=== PATIENT | male | born 1970 | race Caucasian/White ===

== ENCOUNTER 2021-10-26 15:17 | Outpatient (CLI) | payer BC, SELFPAY ==
--- NOTE | 2021-10-26 15:30 | CRLHL7_ITS ---
For Patients: As a result of the 21st Century Cures Act, medical imaging exams and procedure reports are released immediately into your electronic medical record. You may view this report before your referring provider. If you have questions, please contact your health care provider. INDICATION: Metastatic non-small cell lung cancer. Exam is been performed for staging. TECHNIQUE: Patient received 13.4 millicuries of 18 FDG (18 fluorodeoxyglucose) intravenously. PET-CT imaging has been performed from the mid skull to mid thigh level [address] images have been obtained for attenuation correction and localization only. Blood glucose level: 119 mg/dL. COMPARISON: PET-CT dated 07/20/2021. FINDINGS: Within the chest there is a residual right paratracheal hypermetabolic lymph node. This is increased in size measuring 2.4 x 2.1 cm compared with 1.9 x 1.7 cm previously. The SUV max is 6.6 and unchanged. There is a lymph node adjacent to the inferior arch of aorta posteriorly and the upper descending thoracic aorta. The SUV max is 9.5 compared with 7.6 previously. A small pulmonary nodule in the posterior left lung is identified. This measures approximately 2.1 cm compared with 1.2 cm previously. The SUV max is 19.9 compared with 7.1 previously. There are chronic changes in the left lung. Right lung demonstrates no significant abnormal uptake. Chronic pleural fluid left lung base noted. Two adjacent the upper axillary lymph nodes are identified. The SUV max is 6.8 compared with 7.4 previously. These are felt to be relatively stable. New small lymph node in the lower neck on the left is identified with a SUV max of 4.8. Right neck is unremarkable. Skull base is unremarkable. Liver and spleen demonstrate no abnormal uptake. Pancreas and bilateral adrenal glands demonstrate no abnormal uptake. Right retroperitoneal lymph node is identified, SUV max is 4.0 compared with 6.3 previously. Other small retroperitoneal lymph nodes are identified without significant abnormal uptake. No significant hypermetabolic iliac lymph nodes are noted. There is physiologic bowel and ureteric activity demonstrated. No suspicious skeletal lesion is seen. Stable right hip arthroplasty is noted. IMPRESSION: 1. Pattern of findings are consistent with mild progression of the patient`s metastatic disease. 2. There is increasing size and metabolic activity within the residual nodule in the posterior left lung. SUV max is 19.1 compared with 7.1 previously. 3. There are 2 lymph nodes identified in the mediastinum which remain hypermetabolic and appears slightly larger in size. 4. There are 2 adjacent small sub cm lymph nodes in the left axilla which are relatively stable. New small hypermetabolic lymph node in the base of the neck on the left is noted. 5. There is a small right retroperitoneal lymph node identified stable in size and less hypermetabolic. SUV max is 4.0. Other scattered small retroperitoneal lymph nodes identified without significant abnormal uptake. 6. Other PET-CT findings as detailed above. Dictated by Melvin Srivastava MD @ 10/27/2021 3:58:25 PM (Electronically Signed)
== END 2021-10-26 15:18 | disposition home or self-care (01) ==
LOC: RAD 15:18
PROVIDERS: PCP Family Medicine; Visit Provider Internal Medicine Medical Oncology
DX: C34.12 Malignant neoplasm of upper lobe, left bronchus or lung (principal); R59.9 Enlarged lymph nodes, unspecified
CPT/HCPCS: 78815; A9552

== ENCOUNTER 2021-10-30 12:41 | Outpatient (RCR) | payer BC, SELFPAY ==
[2021-10-30 13:12] LABS: Basophils Absolute Auto 0.04 K/uL (0.00-0.30); Basophils Percent Auto 0.4 % (0.0-3.0); Eosinophils Absolute Auto 0.26 K/uL (0.00-0.50); Eosinophils Percent Auto 2.7 % (0.0-7.0); Hemoglobin* 10.8 gm/dL (13.5-17.5); Immature Granulocytes Abs Auto 0.12 K/uL (0.00-0.30); Mean Corpuscular HGB Conc 33 gm/dL (32-36); Mean Corpuscular Hemoglobin 32 pg (26-34); Mean Corpuscular Volume 99 fL (80-100); Monocytes Percent Auto 10.8 % (0.0-11.0); Neutrophils Percent Auto 77.8 % (42.0-72.0); Platelet Count* 289 K/uL (140-440); RDW Coefficient of Variation % 15.7 % (11.5-15.5); Red Blood Count 3.35 m/uL (4.30-5.90); White Blood Count* 9.56 K/uL (4.50-11.00)
[2021-10-30 13:16] LABS: Slide Review Reflex No
[2021-10-30 13:25] LABS: Chloride* 103 mmol/L (96-114); Potassium* 5.4 mmol/L (3.6-5.1); Sodium* 136 mmol/L (135-149)
[2021-10-30 13:28] LABS: Alanine Aminotransferase* 18 U/L (4-50); Alkaline Phosphatase* 100 U/L (40-150); Aspartate Amino Transferase* 20 U/L (12-35); Blood Urea Nitrogen* 36 mg/dL (7-30); Carbon Dioxide* 30 mmol/L (20-32); Creatinine* 1.3 mg/dL (0.5-1.5); Estimated Glomerular Filt Rate 66 ml/min; Glucose* 99 mg/dL (60-115); Total Protein* 7.1 g/dL (6.0-8.3)
[2021-10-30 13:29] LABS: Calcium* 8.2 mg/dL (8.4-10.6)
[2021-10-30 13:45] LABS: Bilirubin Total* < 0.1 mg/dL (0.1-1.5)
--- NOTE | 2021-11-06 13:45 | ONC.NURNOTE ---
Addendum entered by Ave Allen RN 11/08/21 12:50: Radiation Oncology requesting records from treatment for 2021, this was faxed to requested fax machine. Original Note: Patient's daughter called stating that patient has an appointment with Radiation Oncology on 11/20/2021 at 9:45. [facility] to watch for recommendations to determine follow up.
== END 2021-11-05 23:59 | disposition home or self-care (01) ==
LOC: CCIC 12:41
PROVIDERS: PCP Family Medicine; Visit Provider Internal Medicine Medical Oncology
DX: C34.92 Malignant neoplasm of unspecified part of left bronchus or lung (principal)
CPT/HCPCS: 36415; 80053; 85025; 99212; 99214; 99215

== ENCOUNTER 2022-02-15 13:02 | Outpatient (CLI) | payer BC, SELFPAY ==
--- NOTE | 2022-02-15 13:15 | CRLHL7_ITS ---
For Patients: As a result of the 21st Century Cures Act, medical imaging exams and procedure reports are released immediately into your electronic medical record. You may view this report before your referring provider. If you have questions, please contact your health care provider. INDICATION: Lung cancer TECHNIQUE: Following IV injection of FDG with uptake of 58 minutes, noncontrast CT scan followed by a PET scan were acquired along the length of body from the head to the upper thighs. Noncontrast CT was used for anatomic localization and photon attenuation correction of the PET-CT scan. - Blood glucose level: 172. - FDG dose (mCi): 12.47. COMPARISON: 10/26/2021 PET-CT. FINDINGS: Head/Neck: Cluster of left supraclavicular/left upper axillary lymph nodes with SUV max of 14.9 previously 6.1. Medial left supraclavicular lymph node SUV max of 2.4 previously 4.8. - Chest: Left upper lung mass SUV max of 14.2 previously 19.9 measures 3.2 cm previously 1.9 cm. Adjacent small pulmonary nodule with SUV max of 13.0 previously 3.5. Lymph node known posterior to the aortic arch with SUV max of 10.3 previously 9.5. Pretracheal lymph node SUV max of 5.9 previously 6.6. Right hilar lymph nodes SUV max of 3.8 are new from prior. - Background liver parenchyma with SUV mean of 2.9. Right adrenal nodule with SUV max of 12.0 is new from prior measuring 1.1 cm. Right retroperitoneal lymph node with SUV max of 2.3 previously 4.0. Additional nonenlarged retroperitoneal lymph nodes are similar to prior with uptake similar to background. - Musculoskeletal: No tracer avid bone lesions. - CT findings: Stable small pleural effusion. Left supraclavicular/axillary nodes as above. Linear left lung subsegmental atelectasis is similar to prior. Left lung nodules, mediastinal and hilar lymph nodes as above. No pneumothorax. Hepatic steatosis and hepatomegaly. Right adrenal nodule as above. Diverticulosis. Atherosclerotic abdominal aorta. Right trochanteric fixation nail. T3 sclerotic focus is stable. Degenerative changes in the spine. IMPRESSION : 1. Tracer avid right adrenal metastasis is new from prior. 2. Left upper lung mass is increased in size with decreased uptake. Increased uptake in adjacent pulmonary nodule. 3. Mediastinal and left supraclavicular/left upper axillary lymph nodes with increased uptake as above. New right hilar lymph nodes. Dictated by Pako Howell MD @ 02/16/2022 3:51:32 PM (Electronically Signed)
== END 2022-02-15 13:03 | disposition home or self-care (01) ==
LOC: RAD 13:02
PROVIDERS: PCP Family Medicine; Visit Provider Internal Medicine Hematology & Oncology
DX: C34.12 Malignant neoplasm of upper lobe, left bronchus or lung (principal); C79.51 Secondary malignant neoplasm of bone; R59.0 Localized enlarged lymph nodes
CPT/HCPCS: 78815; A9552

== ENCOUNTER 2022-05-24 13:48 | Outpatient (CLI) | payer BC, SELFPAY ==
--- NOTE | 2022-05-24 14:00 | CRLHL7_ITS ---
For Patients: As a result of the 21st Century Cures Act, medical imaging exams and procedure reports are released immediately into your electronic medical record. You may view this report before your referring provider. If you have questions, please contact your health care provider. INDICATION: Metastatic non-small cell lung cancer TECHNIQUE: Following IV injection of FDG with uptake of 63 minutes, noncontrast CT scan followed by a PET scan were acquired along the length of body from the head to the upper thighs. Noncontrast CT was used for anatomic localization and photon attenuation correction of the PET-CT scan. - Blood glucose level: 119. - FDG dose (mCi): 11.5. COMPARISON: 02/15/2022 PET-CT. FINDINGS: Head/Neck: Increased size and uptake of left supraclavicular lymph nodes. Dominant peggy mass with SUV max of 29.6 previously 8.9 measuring 2.9 cm short axis previously 0.7 cm. - Chest: Left upper lobe mass with SUV max of 23.2 previously 14.2 measures 5.2 x 4.4 cm previously 3.2 cm. Increased size and number of tracer avid mediastinal and hilar lymph nodes, including paratracheal, right hilar, subcarinal and left inferior hilar. For example pretracheal lymph node SUV max of 22.2 previously 5.9. Increased left axillary adenopathy. Dominant left axillary peggy mass with SUV max of 29.6 previously 8.9. - Background liver parenchyma with SUV mean of 2.8. Right adrenal mass with us for max 18.0 previously 12.0 measuring 3.9 cm previously 1.1 cm. Right retrocrural lymph node with SUV max of 12.4 is new from prior. Tracer avid celiac lymph node is new from prior with SUV max of 23.9. Left retrocrural lymph node is new from prior with SUV max of 8.8. Left periaortic lymph node is new from prior with SUV max of 12.2. - Musculoskeletal: No tracer avid bone lesion. - CT findings: Left lung mass as above. Stable small left pleural effusion. Left lung opacities are again noted. No pneumothorax. Lymph nodes as above. Hepatic steatosis. Atherosclerotic abdominal aorta. Right adrenal mass and abdominal lymph nodes as above. Right proximal femur hardware. Degenerative changes in the spine. T3 sclerotic focus is stable. IMPRESSION : 1. Increased size, number and uptake of supraclavicular, mediastinal, hilar, axillary and upper abdominal metastatic adenopathy. 2. Increased size and uptake of left lung mass. 3. Increased size and uptake of right adrenal metastasis. Dictated by Pako Howell MD @ 05/31/2022 2:40:57 PM (Electronically Signed)
== END 2022-05-24 13:49 | disposition home or self-care (01) ==
PROVIDERS: PCP Family Medicine; Visit Provider Internal Medicine Medical Oncology
DX: C34.12 Malignant neoplasm of upper lobe, left bronchus or lung (principal); C79.71 Secondary malignant neoplasm of right adrenal gland
CPT/HCPCS: 78815; A9552

== ENCOUNTER 2022-06-04 14:00 | Outpatient (RCR) | payer BC, SELFPAY ==
[2022-06-04 14:50] VITALS: BP 181/115
--- NOTE | 2022-06-05 13:13 | URNOTE ---
REceived request for prior auth for Docetaxel (J9171), Ramucirumab (J9308), Granisetron (J1626), Pegfilgrastim ([id number]). Per [employer], prior authorization is not required. REf # [id number]
== END 2022-06-05 23:59 | disposition home or self-care (01) ==
LOC: CCIC 14:00
PROVIDERS: PCP Family Medicine; Referring Provider Family Medicine; Visit Provider Internal Medicine Medical Oncology
DX: C34.90 Malignant neoplasm of unspecified part of unspecified bronchus or lung (principal)
CPT/HCPCS: 99212; 99213; 99214

== ENCOUNTER 2022-06-12 08:15 | Outpatient (CLI) | payer BC, SELFPAY | END 2022-06-12 08:16 | disposition home or self-care (01) | LOC: NFLDREF 06-15 11:01 | PROVIDERS: PCP Family Medicine; Referring Provider Family Medicine; Visit Provider Family Medicine | DX: Z00.00 Encounter for general adult medical examination without abnormal findings (principal); I10 Essential (primary) hypertension; D64.9 Anemia, unspecified; I48.91 Unspecified atrial fibrillation; E87.1 Hypo-osmolality and hyponatremia; E78.5 Hyperlipidemia, unspecified | CPT/HCPCS: 80048; 80061 ==

== ENCOUNTER 2022-07-09 10:47 | Outpatient (CLI) | payer BC, SELFPAY | END 2022-07-09 10:48 | disposition home or self-care (01) | LOC: AMB 07-12 22:20 | PROVIDERS: PCP Family Medicine; Visit Provider Family Medicine | DX: M79.604 Pain in right leg (principal) | CPT/HCPCS: A0425; A0427 ==

== ENCOUNTER 2022-07-09 11:36 | Inpatient (IN) | payer BC, SELFPAY ==
[2022-07-09] VITALS (22 sets, daily range): BP systolic 96–126; BP diastolic 60–92; PULSE 72–102; RESP 20–25; TEMP 36.9–37.6; O2SAT 89–96; BMI 36.7; BMI 39.4
--- NOTE | 2022-07-09 12:08 | CRLHL7_ITS ---
For Patients: As a result of the Cures Act, medical imaging exams and procedure reports are released immediately into your electronic medical record. You may view this report before your referring provider. If you have questions, please contact your health care provider. Indication: Pain, history of intramedullary federico. Possible metastatic disease. Technique: Two views, 4 films Comparison: Right femur 02/14/2022 Findings/Impression: Bones: Proximal right femoral diaphyseal fracture redemonstrated with intramedullary federico and dynamic hip screw. Fracture of the 2 distal locking screws which appear similar to prior. Prominent callus formation surrounding the fracture plane with some adjacent heterotopic calcification which appears mildly increased compared to the prior exam. Fracture plane is still clearly visible. No new femoral fracture. Joint spaces: No dislocation. Soft tissues: Atherosclerosis. Dictated by Cortes Ewing MD @ 07/09/2022 1:38:56 PM (Electronically Signed)
--- NOTE | 2022-07-09 12:08 | CRLHL7_ITS ---
For Patients: As a result of the Century Cures Act, medical imaging exams and procedure reports are released immediately into your electronic medical record. You may view this report before your referring provider. If you have questions, please contact your health care provider. Indication: Right leg pain, history of metastatic disease Technique: One View Comparison: None Findings: Bones: There is a comminuted fracture of the proximal diaphysis of the right femur, partially included. Intramedullary federico and dynamic hip screw there also partially included on the examination. Joint spaces: Unremarkable. Soft tissues: Unremarkable. Impression: No evidence of acute fracture of the pelvis. Proximal right femoral diaphyseal fracture with intramedullary federico partially included on the exam, please see femur report for additional comments. Dictated by Cortes Ewing MD @ 07/09/2022 1:35:37 PM (Electronically Signed)
[2022-07-09] MEDS: MORPHINE 4 MG/ML INJ IVP ×2 (12:45→15:13)
--- NOTE | 2022-07-09 12:52 | ED_ITS ---
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 Was done 3 years ago now. For the last week, he had increasing pain in his right leg mid shaft, but now has progressed to a point where he can not bear any wake at all. Lower leg is totally nontender any is good movement of his knee tells me, is toes, denies any back pain associated with this any falls or injury, is currently being treated in [facility] for chemo by [facility]. The federico was placed at [facility] in his right femur. Denies any numbness tingling weakness, fevers chills or sweats, nausea vomiting or other issues. Related Data Home Medications Medication Instructions Recorded Confirmed calcium carbonate 500 mg calcium 500 mg PO DAILY 02/01/22 06/14/22 (1,250 mg) tablet (Oyster Shell Calcium) cholecalciferol (vitamin D3) 50 50 mcg PO QDAY 02/01/22 06/14/22 mcg (2,000 unit) tablet cinnamon bark 500 mg capsule 500 mg PO DAILY 02/01/22 06/14/22 ferrous gluconate 240 mg (27 mg 130 mg PO QDAY 02/01/22 06/14/22 iron) tablet ibuprofen 200 mg tablet 800 mg PO .Daily as needed PRN 02/01/22 06/14/22 polyethylene glycol 3350 17 17 g PO DAILY PRN 02/01/22 06/14/22 gram/dose oral powder acetaminophen 500 mg tablet 1,500 mg PO QID PRN 06/04/22 06/14/22 (Tylenol Extra Strength) Previous Rx's Medication Instructions Recorded triamcinolone acetonide 0.1 % 1 applic topical BID PRN itching 01/18/22 topical cream #30 grams ondansetron HCl 4 mg tablet 4 mg PO Q6H PRN nausea #40 tabs 06/11/22 amlodipine 5 mg tablet 5 mg PO QDAY #90 tabs 06/15/22 diltiazem HCl 180 mg 180 mg PO QDAY #90 caps 06/15/22 capsule,extended release 24 hr, controlled (DILT-XR) gabapentin 300 mg capsule 300 mg PO QDAY #90 caps 06/15/22 lisinopril 20 mg tablet 20 mg PO QDAY #90 tabs 06/15/22 metoprolol succinate 200 mg 200 mg PO QDAY #90 tabs 06/15/22 tablet,extended release 24 hr dexamethasone 4 mg tablet 8 mg PO BID fluid retention, 06/27/22 hypersensitivity from chemo #40 tabs lorazepam 0.5 mg tablet 0.5 mg PO Q8H PRN insomnia after 06/27/22 chemo, uncontrolled nausea #30 tabs Allergies Allergy/AdvReac Type Severity Reaction Status Date / Time hydrochlorothiazide Allergy Severe tongue Verified 06/14/22 09:36 swelling cephalexin Allergy Verified 06/14/22 09:36 Review of Systems Status of ROS: Reports: 10 or more systems reviewed and unremarkable except as noted in History and below [facility] Medical History Adverse effect of angiotensin-converting enzyme inhibitor ?T46.4X5A - Adverse effect of ijubicxtlmc-akcpcpovjj-hyfkgy inhibitors, initial encounter (ICD-10) Alcoholic intoxication ?F10.929 - Alcohol use, unspecified with intoxication, unspecified (ICD-10) Anemia ?D64.9 - Anemia, unspecified (ICD-10) Atrial fibrillation with rapid ventricular response ?I48.91 - Unspecified atrial fibrillation (ICD-10) Cellulitis ?L03.90 - Cellulitis, unspecified (ICD-10) Cellulitis and abscess of face ?L03.211 - Cellulitis of face (ICD-10) ?L02.01 - Cutaneous abscess of face (ICD-10) Epistaxis ?R04.0 - Epistaxis (ICD-10) Fracture of right femur ?S72.91XA - Unspecified fracture of right femur, initial encounter for closed fracture (ICD-10) Hyperlipidemia ?E78.5 - Hyperlipidemia, unspecified (ICD-10) Hyperplastic colonic polyp ?K63.5 - Polyp of colon (ICD-10) Hypertension ?I10 - Essential (primary) hypertension (ICD-10) Hypervolemia ?E87.70 - Fluid overload, unspecified (ICD-10) Hypocalcemia ?E83.51 - Hypocalcemia (ICD-10) Hyponatremia ?E87.1 - Hypo-osmolality and hyponatremia (ICD-10) Obesity with body mass index (BMI) of 30.0 to 39.9 ?E66.9 - Obesity, unspecified (ICD-10) ROSALIND on CPAP ?G47.33 - Obstructive sleep apnea (adult) (pediatric) (ICD-10) ?Z99.89 - Dependence on other enabling machines and devices (ICD-10) Pleural effusion ?J90 - Pleural effusion, not elsewhere classified (ICD-10) Proteinuria ?R80.9 - Proteinuria, unspecified (ICD-10) Rosacea ?L71.9 - Rosacea, unspecified (ICD-10) Seborrheic dermatitis ?L21.9 - Seborrheic dermatitis, unspecified (ICD-10) Stage 1 chronic kidney disease ?N18.1 - Chronic kidney disease, stage 1 (ICD-10) Type 2 diabetes mellitus with diabetic nephropathy ?E11.21 - Type 2 diabetes mellitus with diabetic nephropathy (ICD-10) Surgical History History of colonoscopy ?Z98.890 - Other specified postprocedural states (ICD-10) History of surgery on lower extremity (03/19/20) ?Z98.890 - Other specified postprocedural states (ICD-10) Status post hemorrhoidectomy ?Z98.890 - Other specified postprocedural states (ICD-10) ?Z87.19 - Personal history of other diseases of the digestive system (ICD-10) Social History Smoking Status: Never smoker Little interest or pleasure in doing things: not at all Feeling down, depressed, or hopeless: not at all Exam Narrative: Exam Narrative: Examination reveals a very nice gentleman seen and stabilization room 2, is pupils equal round reactive to light, neck is supple, TMs are normal, oropharynx normal chest shows good air entry bilaterally with no wheezing crackles noted his heart sounds are distant faint, but otherwise normal his abdomen is soft and obese there is no guarding, no tenderness to palpation, no organomegaly, can not really were lift his right leg off the bed, at the hip with any sort of pain, it is slightly externally rotated, but otherwise normal his knee when I stabilizes leg, is able to go through full range of motion, lower leg shows DP posterior tibial and popliteal pulses normal sensations normal in his right leg. He is log-rolled onto his left side with the help with the nurses, there is no tenderness to palpation over his lumbar thoracic or cervical spines, he has no ulcers noted, redness, well-healed scars on the right hip, from previous procedure. Const: Vital Signs, click to edit/add: Vital Signs - 24 hr 07/09/22 11:39 Temperature 99.6 F Pulse Rate [Pulse Oximeter] 100 Respiratory Rate 22 Blood Pressure [Ri ght Upper Arm] 125/78 Pulse Oximetry 90 Oxygen Delivery Me thod Room Air Documenting provider has reviewed patient's vital signs: yes Course Course Hospital Course: Patient is about the same, still can not really move the leg, I went over his e lectrolyte abnormalities, which are fairly impressive, he will need admission for correction of his sodium, potassium, and likely calcium, I can see no acute change for his right thigh discomfort, still waiting for a page back from [facility] to see if this is something we need to see for. Reevaluation(s) Reevaluation #1: Still awaiting [facility] call back, we have re-paged him now 3 times, discussed the case with Dr. Pinto our hospitalist, we will need to admit him for correction of his metabolic abnormalities, not sure what is causing the increasing right thigh pain, see no evidence of, worsening was pathologic fracture, I will order an ultrasound of his right leg, to further check this out. Time: 15:22 Vital Signs Vital signs: Initial Vital Signs Temperature 99.6 F 07/09/22 11:39 Temperature Source Temporal Artery Scan 07/09/22 11:39 Pulse Rate 100 07/09/22 11:39 Respiratory Rate 22 07/09/22 11:39 Blood Pressure 125/78 07/09/22 11:39 Blood Pressure Mean 93 07/09/22 11:39 Pulse Oximetry 90 07/09/22 11:39 Oxygen Delivery Method Room Air 07/09/22 11:39 Vital Signs Temperature 99.6 F 07/09/22 11:39 Pulse Rate 100 07/09/22 11:39 Respiratory Rate 22 07/09/22 11:39 Blood Pressure 125/78 07/09/22 11:39 Pulse Oximetry 90 07/09/22 11:39 Oxygen Delivery Method Room Air 07/09/22 11:39 Temperature 99.6 F 07/09/22 11:39 Pulse Rate 100 07/09/22 11:39 Respiratory Rate 22 07/09/22 11:39 Blood Pressure 125/78 07/09/22 11:39 Pulse Oximetry 90 07/09/22 11:39 Oxygen Delivery Method Room Air 07/09/22 11:39 MDM - Extremity Injury (Lower) MDM Narrative Medical decision making narrative: During this evaluation I considered multiple diagnosis including lumbar radiculopathy, fracture of the hip and femur, pathologic fracture, RSD, hematoma, venous thrombosis, ischemic limb, Medical Records Attestation: I reviewed the patient's medical records. Lab Data Attestation: I reviewed the patient's lab results. Labs: Lab Results 07/09/22 Range/Units 12:47 WBC 19.80 H (4.50-11.00) K/uL RBC 2.76 L (4.30-5.90) m/uL Hgb 9.1 L (13.5-17.5) gm/dL Hct 26.3 L (37.0-53.0) % MCV 95 (80-100) fL MCH 33 (26-34) pg MCHC 35 (32-36) gm/dL RDW Coeff of [place] 14.0 (11.5-15.5) % Plt Count 176 (140-440) K/uL Neut % (Auto) 93.9 H (42.0-72.0) % Lymph % (Auto) 1.0 L (20-44) % [place] % (Auto) 3.9 (0.0-11.0) % Eos % (Auto) 0.0 (0.0-7.0) % Baso % (Auto) 0.2 (0.0-3.0) % Neut # (Auto) 18.60 H (1.7-7.0) K/uL Lymph # (Auto) 0.20 L (0.90-2.90) K/uL [place] # (Auto) 0.80 (0.00-0.90) K/UL Eos # (Auto) 0.00 (0.00-0.50) K/uL Baso # (Auto) 0.00 (0.00-0.30) K/uL Sodium 119 L* (135-149) mmol/L Potassium 5.2 H (3.6-5.1) mmol/L Chloride 88 L (96-114) mmol/L Carbon Dioxide 24 (20-32) mmol/L BUN 45 H (7-30) mg/dL Creatinine 2.0 H (0.5-1.5) mg/dL Estimated Creat Clear 47.72 Estimated GFR 39 ml/min Glucose 137 H (60-115) mg/dL Calcium 7.6 L (8.4-10.6) mg/dL Imaging Data Left femur x-ray: Attestation: I have reviewed the pertinent imaging results. Radiologist's impression: Patient: EDMUND HEAD Facility:?[facility] Patient ID:?[id number] Site Patient ID:?[id number]. Site :?[id number] Study:?XRay Extremity Right FEMUR 2V-07/09/2022 12:38:30 PM Ordering Physician:Hossein Castellon Final Report: Indication: Pain, history of intramedullary federico. Possible metastatic disease. Technique: Two views, 4 films Comparison: Right femur 02/14/2022 Findings/Impression: Bones: Proximal right femoral diaphyseal fracture redemonstrated with intramedullary federico and dynamic hip screw. Fracture of the 2 distal locking screws which appear similar to prior. Prominent callus formation surrounding the fracture plane with some adjacent heterotopic calcification which appears mildly increased compared to the prior exam. Fracture plane is still clearly visible. No new femoral fracture. Joint spaces: No dislocation. Soft tissues: Atherosclerosis. Dictated by Cortes Ewing MD @ 07/09/2022 1:38:56 PM (Electronic Signature) Patient: EDMUND HEAD Facility:?[facility] Patient ID:?[id number] Site Patient ID:?[id number]. Site :?[id number] Study:?XRay Pelvis 1 VIEW-07/09/2022 12:38:32 PM Ordering Physician:Hossein Castellon Final Report: Indication: Right leg pain, history of metastatic disease Technique: One View Comparison: None Findings: Bones: There is a comminuted fracture of the proximal diaphysis of the right femur, partially included. Intramedullary federico and dynamic hip screw there also partially included on the examination. Joint spaces: Unremarkable. Soft tissues: Unremarkable. Impression: No evidence of acute fracture of the pelvis. Proximal right femoral diaphyseal fracture with intramedullary federico partially included on the exam, please see femur report for additional comments. Dictated by Cortes Ewing MD @ 07/09/2022 1:35:37 PM (Electronic Signature) Discharge Plan Discharge Clinical Impression: Acute renal insufficiency, Lower extremity pain, right, Lung cancer metastatic to bone, Acute hyponatremia, Acute hyperkalemia, Hypocalcemia Patient Disposition: Admitted As Inpatient Condition: Stable Prescriptions: No Action cholecalciferol (vitamin D3) 50 mcg (2,000 unit) tablet 50 mcg PO QDAY Hold Instructions: Doctor's Order cinnamon bark 500 mg capsule 500 mg PO DAILY polyethylene glycol 3350 17 gram/dose powder 17 g PO DAILY PRN ibuprofen 200 mg tablet 800 mg PO .Daily as needed PRN ferrous gluconate 240 mg (27 mg iron) tablet 130 mg PO QDAY calcium carbonate [Oyster Shell Calcium] 500 mg calcium (1,250 mg) tablet 500 mg PO DAILY Hold Instructions: Doctor's Order diltiazem HCl [DILT-XR] 180 mg capsule,ext.rel 24h degradable 180 mg PO QDAY Qty: 90 3RF gabapentin 300 mg capsule 300 mg PO QDAY Qty: 90 3RF lisinopril 20 mg tablet 20 mg PO QDAY Qty: 90 3RF metoprolol succinate 200 mg tablet extended release 24 hr 200 mg PO QDAY Qty: 90 3RF triamcinolone acetonide 0.1 % cream 1 applic topical BID PRN (Reason: itching) Qty: 30 2RF acetaminophen [Tylenol Extra Strength] 500 mg tablet 1,500 mg PO QID PRN ondansetron HCl 4 mg tablet 4 mg PO Q6H PRN (Reason: nausea) Qty: 40 2RF Rx Instructions: Take for nausea not controlled with compazine (prochlorperazine). amlodipine 5 mg tablet 5 mg PO QDAY Qty: 90 3RF dexamethasone 4 mg tablet 8 mg PO BID Qty: 40 1RF Rx Instructions: Take 2 tabs (8mg) twice per day for 3 days, starting the day before chemo. Take with food. lorazepam 0.5 mg tablet 0.5 mg PO Q8H PRN (Reason: insomnia after chemo, uncontrolled nausea) Qty: 30 0RF Rx Instructions: Take 1 tab every 8 hours if needed for insomnia after chemo, or nausea not controlled with zofran (ondansetron). Use with caution with other sedating meds. Follow Up/Referrals: Eliezer Camacho MD [Primary Care Provider] -
[2022-07-09 12:57] LABS: Basophils Percent Auto 0.2 % (0.0-3.0); Hematocrit 26.3 % (37.0-53.0); Hemoglobin* 9.1 gm/dL (13.5-17.5); Mean Corpuscular HGB Conc 35 gm/dL (32-36); Mean Corpuscular Hemoglobin 33 pg (26-34); Mean Corpuscular Volume 95 fL (80-100); Monocytes Percent Auto 3.9 % (0.0-11.0); Neutrophils Percent Auto 93.9 % (42.0-72.0); Platelet Count* 176 K/uL (140-440); Red Blood Count 2.76 m/uL (4.30-5.90)
[2022-07-09 12:58] LABS: Slide Review Reflex No
[2022-07-09 13:10] LABS: Chloride* 88 mmol/L (96-114); Potassium* 5.2 mmol/L (3.6-5.1)
[2022-07-09 13:13] LABS: Blood Urea Nitrogen* 45 mg/dL (7-30); Calcium* 7.6 mg/dL (8.4-10.6); Carbon Dioxide* 24 mmol/L (20-32); Est. Creatinine Clearance* 47.72; Estimated Glomerular Filt Rate 39 ml/min; Glucose* 137 mg/dL (60-115)
[2022-07-09 13:18] LABS: Sodium* 119 mmol/L (135-149)
--- NOTE | 2022-07-09 13:40 | ED.NURSE ---
[place] paged for consult. Per call center, providers are in clinic but will page them out for a return call.
[2022-07-09] MEDS: 0.9 % SODIUM CHLORIDE 1000 ml 1,000 ML IV (14:04)
--- NOTE | 2022-07-09 14:10 | ED.NURSE ---
No return call from [facility]. [place] re paged (#2) for consult.
[2022-07-09] MEDS: 0.9 % SODIUM CHLORIDE 1000 ml 1,000 ML 150 ML IV (15:14)
--- NOTE | 2022-07-09 15:15 | ED.NURSE ---
No return call from [place] yet. [place] re paged (#3) for consult. Per call center, it is change of shift for physicians. They will re page out.
--- NOTE | 2022-07-09 15:25 | CRLHL7_ITS ---
For Patients: As a result of the Century Cures Act, medical imaging exams and procedure reports are released immediately into your electronic medical record. You may view this report before your referring provider. If you have questions, please contact your health care provider. INDICATION: LEV RTimages: 26 TECHNIQUE: Ultrasound venous duplex right lower extremity. COMPARISON: None. FINDINGS: The right common femoral, superficial femoral, deep femoral, popliteal, posterior tibial, and greater saphenous veins are fully compressible with normal waveforms. IMPRESSION: Normal ultrasound of the right lower extremity veins. Dictated by: Pako Veliz MD @ 07/09/2022 16:43:41 (Electronically Signed)
[2022-07-09 15:51] LABS: PCR FLU A Negative PCR FLU A (Negative); PCR FLU B Negative PCR FLU B (Negative); PCR RSV Negative PCR RSV (Negative)
[2022-07-09 15:57] LABS: SARS PCR* Negative SARS-CoV-2 (Negative)
--- NOTE | 2022-07-09 16:16 | ED.NURSE ---
[facility] re paged for consult. Call center reports they can see we have attempted to page [facility] multiple times without call.
--- NOTE | 2022-07-09 16:33 | ED.NURSE ---
[facility] returning page.
--- NOTE | 2022-07-09 18:52 | PM.IMHP1 ---
Hospitalist- H&P: HPI History of Present Illness Date Seen: 07/09/22 Chief complaint: Leg pain Narrative: Clive De La O is a 52 year old male with history of metastatic squamous cell lung cancer and pathologic fracture of the right femur admitted to the hospital with 5 day history of progressive right thigh pain. March of 2020 he was diagnosed with squamous cell carcinoma of the lung. This was metastatic. Had a pathologic fracture of his right femur. This was treated with intramedullary federico and radiation therapy. Subsequently the fixation has broken with the distal screws being broken. He has been able to ambulate on this leg and has not had significant pain until the last 5 days. For last 3 days he has been unable to walk on it at all and has been basically laying in bed. Radiographically the fracture has not substantially changed since images obtained in February of 2022. Since his 1st treatment with his new chemotherapy June 27, docetaxel and ramucirumab, he reports he has had fairly severe diarrhea and vomiting. He has been able to drink some water but has had very little food to eat. There is no blood in his emesis. It lasted about a week and he thinks it is getting better now. He still has very little appetite. He is not aware of a fever. He does not have a cold or cough. Does not have chest pain or abdominal pain. Review of Systems Narrative: He reports up until his recent chemotherapy he was generally doing well. He is walking with a cane. He was eating and drinking. He had no other obvious new signs or symptoms of illness. [facility] Medical History (Updated 07/09/22 @ 19:24 by Kurt Pinto MD) Adverse effect of angiotensin-converting enzyme inhibitor ?T46.4X5A - Adverse effect of zgtgizfzilg-pmnhryiayc-twwkux inhibitors, initial encounter (ICD-10) Alcoholic intoxication ?F10.929 - Alcohol use, unspecified with intoxication, unspecified (ICD-10) Anemia ?D64.9 - Anemia, unspecified (ICD-10) Atrial fibrillation with rapid ventricular response ?I48.91 - Unspecified atrial fibrillation (ICD-10) Cellulitis ?L03.90 - Cellulitis, unspecified (ICD-10) Cellulitis and abscess of face ?L03.211 - Cellulitis of face (ICD-10) ?L02.01 - Cutaneous abscess of face (ICD-10) Epistaxis ?R04.0 - Epistaxis (ICD-10) Fracture of right femur ?S72.91XA - Unspecified fracture of right femur, initial encounter for closed fracture (ICD-10) Hyperkalemia ?E87.5 - Hyperkalemia (ICD-10) Hyperlipidemia ?E78.5 - Hyperlipidemia, unspecified (ICD-10) Hyperplastic colonic polyp ?K63.5 - Polyp of colon (ICD-10) Hypertension ?I10 - Essential (primary) hypertension (ICD-10) Hypervolemia ?E87.70 - Fluid overload, unspecified (ICD-10) Hypocalcemia ?E83.51 - Hypocalcemia (ICD-10) Hyponatremia ?E87.1 - Hypo-osmolality and hyponatremia (ICD-10) Obesity with body mass index (BMI) of 30.0 to 39.9 ?E66.9 - Obesity, unspecified (ICD-10) ROSALIND on CPAP ?G47.33 - Obstructive sleep apnea (adult) (pediatric) (ICD-10) ?Z99.89 - Dependence on other enabling machines and devices (ICD-10) Pleural effusion ?J90 - Pleural effusion, not elsewhere classified (ICD-10) Proteinuria ?R80.9 - Proteinuria, unspecified (ICD-10) Rosacea ?L71.9 - Rosacea, unspecified (ICD-10) Seborrheic dermatitis ?L21.9 - Seborrheic dermatitis, unspecified (ICD-10) Stage 1 chronic kidney disease ?N18.1 - Chronic kidney disease, stage 1 (ICD-10) Stage 3 chronic kidney disease ?N18.30 - Chronic kidney disease, stage 3 unspecified (ICD-10) Type 2 diabetes mellitus with diabetic nephropathy ?E11.21 - Type 2 diabetes mellitus with diabetic nephropathy (ICD-10) Surgical History History of colonoscopy ?Z98.890 - Other specified postprocedural states (ICD-10) History of surgery on lower extremity (03/19/20) ?Z98.890 - Other specified postprocedural states (ICD-10) Status post hemorrhoidectomy ?Z98.890 - Other specified postprocedural states (ICD-10) ?Z87.19 - Personal history of other diseases of the digestive system (ICD-10) Family History (Updated 07/09/22 @ 19:03 by Kurt Pinto MD) Father Lung cancer Grandfather Lung cancer Social History (Updated 07/09/22 @ 19:04 by Kurt Pinto MD) Narrative: He lives with his , Marianne, in [place]. 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 His code status is full. He is a former cigarette smoker. He no longer drinks alcohol. He has no recreational drug use. Highest level of school completed/degree received: Associate degree: academic program Smoking Status: Former smoker What tobacco products do you use: cigarettes Smoking quit date/years: <= 15 years ago Do you use any of these nicotine containing products: None Second hand tobacco smoke exposure: No How often do you have a drink containing alcohol: never How often do you have six or more drinks on one occasion: Never AUDIT-C Alcohol total score: 0 Non-prescribed substance use: denies use Caffeine: No Little interest or pleasure in doing things: not at all Feeling down, depressed, or hopeless: not at all service: No Meds Home Medications and Allergies Home Medications Medication Instructions Recorded Confirmed Type cholecalciferol (vitamin D3) 50 50 mcg PO DAILY 02/01/22 07/09/22 History mcg (2,000 unit) tablet cinnamon bark 500 mg capsule 500 mg PO DAILY 02/01/22 07/09/22 History ferrous gluconate 240 mg (27 mg 130 mg PO DAILY 02/01/22 07/09/22 History iron) tablet ibuprofen 200 mg tablet 800 mg PO .Daily as needed PRN 02/01/22 07/09/22 History polyethylene glycol 3350 17 17 g PO DAILY PRN 02/01/22 07/09/22 History gram/dose oral powder acetaminophen 500 mg tablet 1,000 mg PO QID PRN 06/04/22 07/09/22 History (Tylenol Extra Strength) amlodipine 5 mg tablet 5 mg PO DAILY 07/09/22 07/09/22 History diltiazem HCl 180 mg 180 mg PO DAILY 07/09/22 07/09/22 History capsule,extended release 24 hr, controlled (DILT-XR) gabapentin 300 mg capsule 300 mg PO DAILY 07/09/22 07/09/22 History lisinopril 20 mg tablet 20 mg PO DAILY 07/09/22 07/09/22 History metoprolol succinate 200 mg 200 mg PO DAILY 07/09/22 07/09/22 History tablet,extended release 24 hr Allergies Allergy/AdvReac Type Severity Reaction Status Date / Time hydrochlorothiazide Allergy Severe tongue Verified 06/14/22 09:36 swelling cephalexin Allergy Verified 06/14/22 09:36 Exam Narrative: Exam Narrative: He is alert and appears in no obvious distress. He gives his own history. Eyes are normal. Oropharynx normal. Neck is supple out mass or adenopathy. Respirations are clear to auscultation. No wheezing rales rhonchi. Diminished breath sounds. Cardiovascular: S1, S2, regular rate and rhythm. Abdomen: Bowel sounds active. Abdomen is soft without tenderness or mass. External genitalia normal. Upper extremities are normal without tenderness trauma. Is intact strength and sensation and pulses in upper extremities. Lower extremities appear normal. He has intact pedal pulses. He has trace edema in both ankles. He is unable to move his right lower extremity due to pain in his right thigh. Passive range of motion is very limited. When I lift his right heel off the bed causes severe right thigh pain. Any attempt at internal external rotation of the right hip causes severe pain. Palpation over the thigh is mildly tender without obvious erythema, mass or tenderness. Left lower extremity is normal with normal motion sensation pulses. Const: Vital Signs, click to edit/add: Vital Signs - 24 hr 07/09/22 11:39 07/09/22 13:47 07/09/22 14:00 Temperature 99.6 F Pulse Rate 101 H 101 H Pulse Rate [Pulse Oximeter] 100 Respiratory Rate 22 Blood Pressure Blood Pressure [Ri ght Upper Arm] 125/78 Pulse Oximetry 90 95 94 [facility] 07/09/22 14:01 07/09/22 14:15 07/09/22 14:30 Temperature Pulse Rate 102 H 102 H 83 Pulse Rate [Pulse Oximeter] Respiratory Rate Blood Pressure 121/82 Blood Pressure [Ri ght Upper Arm] Pulse Oximetry 96 93 91 Oxygen Delivery [facility] 07/09/22 14:31 07/09/22 14:45 07/09/22 15:00 Temperature Pulse Rate 84 86 86 Pulse Rate [Pulse Oximeter] Respiratory Rate Blood Pressure 117/77 Blood Pressure [Ri ght Upper Arm] Pulse Oximetry 90 95 91 Oxygen Delivery [facility] 07/09/22 15:01 04/03/23 15:15 07/09/22 15:30 Temperature Pulse Rate 86 85 84 Pulse Rate [Pulse Oximeter] Respiratory Rate Blood Pressure 119/73 Blood Pressure [Ri ght Upper Arm] Pulse Oximetry 96 96 91 Oxygen Delivery [facility] 07/09/22 15:31 07/09/22 15:45 07/09/22 16:00 Temperature Pulse Rate 84 87 90 Pulse Rate [Pulse Oximeter] Respiratory Rate Blood Pressure 114/78 Blood Pressure [Ri ght Upper Arm] Pulse Oximetry 90 92 93 Oxygen Delivery [facility] 07/09/22 16:01 07/09/22 16:15 07/09/22 16:30 Temperature Pulse Rate 90 92 87 Pulse Rate [Pulse Oximeter] Respiratory Rate Blood Pressure 126/92 H Blood Pressure [Ri ght Upper Arm] Pulse Oximetry 91 95 89 Oxygen Delivery [facility] 07/09/22 16:31 07/09/22 16:45 Temperature Pulse Rate 88 91 Pulse Rate [Pulse Oximeter] Respiratory Rate Blood Pressure 104/66 Blood Pressure [Ri ght Upper Arm] Pulse Oximetry 94 90 Oxygen Delivery Me thod Documenting provider has reviewed patient's vital signs: yes Hospitalist - H&P: Result Labs Labs: Short CBC 07/09/22 Range/Units 12:47 WBC 19.80 H (4.50-11.00) K/uL Hgb 9.1 L (13.5-17.5) gm/dL Hct 26.3 L (37.0-53.0) % Plt Count 176 (140-440) K/uL BMP 07/09/22 12:47 Sodium 119 L* Potassium 5.2 H Chloride 88 L Carbon Dioxide 24 BUN 45 H Creatinine 2.0 H Glucose 137 H Calcium 7.6 L Imaging femur: Radiologist's impression: [place] [address] Diagnostic Imaging Report Patient: Clive De La O MR#: [id number] : 1970 Acct:[id number] Loc: ED Service Date: 07/09/[address]: Ordering Physician: Ravinder Butler M.D. Date of Service: 07/09/22 Procedure(s): XR femur RT 2V Accession Number(s): [id number] cc: Eliezer Camacho M.D.; Ravinder Butler M.D.~ For Patients:? As a result of the 21st Century Cures Act, medical imaging exams and procedure reports are released immediately into your electronic medical record.? You may view this report before your referring provider.? If you have questions, please contact your health care provider. Indication: Pain, history of intramedullary federico. Possible metastatic disease. Technique: Two views, 4 films Comparison: Right femur 02/14/2022 Findings/Impression: Bones: Proximal right femoral diaphyseal fracture redemonstrated with intramedullary federico and dynamic hip screw. Fracture of the 2 distal locking screws which appear similar to prior. Prominent callus formation surrounding the fracture plane with some adjacent heterotopic calcification which appears mildly increased compared to the prior exam. Fracture plane is still clearly visible. No new femoral fracture. Joint spaces: No dislocation. Soft tissues: Atherosclerosis. Dictated by Cortes Ewing MD @ 07/09/2022 1:38:56 PM Assessment and Plan Assessment and plan (1) Lower extremity pain, right: Problem comment: I suspect this is related to his pathologic fracture with intramedullary rodding from March 2020. There is a failure of the hardware with fractured screws which is old. I spoke with an orthopedist at [facility]. He indicates that this may need to be revised but they would not do it right now with recent chemotherapy. His orthopedic surgeon wants him to be bearing weight only without significant pain. Likely he will be wheelchair-bound as a result. Status: Acute (2) Lung cancer metastatic to bone: Problem comment: Right femur see above Status: Acute (3) Fracture of right femur: Problem comment: See above Status: Acute (4) Acute hyponatremia: Problem comment: Due to chemo and therapy induced nausea, vomiting, diarrhea and anorexia. Will provide hydration and fluid restriction and monitor. Status: Acute (5) Hyperkalemia: Problem comment: Chronic. Associated with chronic kidney disease. Not currently on any active treatment. Will hold lisinopril due to acute on chronic kidney disease and hyperkalemia. Consider loop diuretic if needed to control potassium and or control blood pressure. Status: Acute (6) Hypocalcemia: Problem comment: Recently had hypercalcemia. Now borderline low calcium. Follow. Status: Acute (7) Metastasis to adrenal gland: Problem comment: Of uncertain clinical significance right now Status: Acute (8) Leukocytosis: Problem comment: A little bit surprising given chemotherapy 12 days ago. Will culture for infection and monitor for fever and focus of infection Status: Acute (9) Hypertension: Problem comment: Hold amlodipine, diltiazem, lisinopril due to low blood pressure and high potassium. Consider restarting amlodipine or diltiazem, diltiazem if needing more rate control. Re-evaluate need for lisinopril given chronic hyperkalemia Status: Acute (10) Stage 3 chronic kidney disease: Problem comment: Continue to monitor. Fluid resuscitation. Status: Acute Plan Patient admitted to the hospital for evaluation of right thigh pain in the context of a pathologic fracture and inability to ambulate. Additionally he has hyponatremia, hyperkalemia and acute on chronic kidney injury. His blood pressure is low and there was concern for infection. Also ongoing concern about toxicity from recent chemotherapy. Will need to assess whether he can eat and drink to maintain his hydration and nutrition as well as his electrolytes. He will probably need to return to [facility] for orthopedic evaluation for his right femur. The orthopedic surgeon felt emergent intervention was not indicated right now. Will address his other multiple medical problems and then reassess plan for disposition. Total time spent today is 90 minutes, 60 minutes in coordination care and discussing with patient and other providers management of thigh pain, hyponatremia, hyperkalemia, nausea vomiting and anorexia.
[2022-07-09] MEDS: ACETAMINOPHEN 325 MG TABLET 975 MG PO (19:35)
[2022-07-09] MEDS: OXYCODONE 5 MG TABLET PO (19:35)
[2022-07-09 20:09] LABS: Erythrocyte SedimentationRate* >102 mm/hr (2-15)
[2022-07-09 20:24] LABS: Sodium* 121 mmol/L (135-149)
[2022-07-09 20:34] LABS: Vitamin D 25 Hydroxy* 22 ng/mL (30-80)
[2022-07-09 21:02] LABS: C Reactive Protein* 42.2 mg/dL (0.5-1.0)
[2022-07-09 21:24] LABS: Appearance Urine Clear (Clear); Bilirubin Urine 1+ (Negative); Blood Urine Negative (Negative); Color Urine Yellow (Yellow); Glucose Urine Negative (Negative); Ketones Urine Negative (Negative); Leukocyte Esterase Urine Negative (Negative); Nitrite Urine Negative (Negative); Protein Urine 2+ (Negative); Specific Gravity Urine 1.015 (1.000-1.030); Urobilinogen Urine 0.2 (0.2-1.0)
[2022-07-09 21:44] LABS: Bacteria Urine Moderate; Fine Granular Casts Urine Few; RBC Urine 0-2 (0-2); Squamous Epithelial Cell Urine Few (None-Few); WBC Urine 0-2 (0-5)
[2022-07-09] MEDS: ENOXAPARIN 40 MG/0.4 ML INJ SUBCUT (22:01)
[2022-07-09 22:49] LABS: D Dimer Quantitative* 7.16 ug/ml (0.00-0.50)
[2022-07-09] MEDS: SODIUM CHLORIDE 0.9 % (FLUSH) 10 ML SYRINGE 5 ML IVF (22:58)
--- NOTE | 2022-07-09 23:21 | PC.NURSE ---
Nursing Care Hours: [id number] Pt this shift arrived from ED on stretcher, alert and oriented with occasional confusion on timelines during admission assessment. Unable to transfer d/t R leg pain 10/10 with movement. Treated per eMAR, Pt able to pivot transfer to recliner so bed to with trapeze could be brought in. Pt tolerated well. CMS intact, pedal pulses present. Voiding with urinal. No BM for 3 days per pt. Low appetite and nutritional intake d/t N/V over the last week. No N/V this shift, ate 25% of dinner. Pt diaphoretic and afebrile. EKG showed NSR. UA collected and sent to lab. IV in R hand pulled out during transfer, hand puffy. Compression wrap applied, new IV in L forearm. Upper L lung inspiratory and expiratory long wheeze. Murmur heard.
[2022-07-09] MEDS: 0.9 % SODIUM CHLORIDE 1000 ml 1,000 ML 125 ML IV (23:51)
[2022-07-10] VITALS (8 sets, daily range): BP systolic 100–125; BP diastolic 63–78; PULSE 82–104; RESP 10–18; TEMP 36.4–37.1; O2SAT 90–97; BMI 39.4
[2022-07-10] MEDS: SENNOSIDES/DOCUSATE TABLET 1 TAB PO ×2 (06:16→20:46)
[2022-07-10 06:41] LABS: Basophils Percent Auto 0.1 % (0.0-3.0); Eosinophils Percent Auto 0.2 % (0.0-7.0); Hematocrit 24.7 % (37.0-53.0); Hemoglobin* 8.4 gm/dL (13.5-17.5); Immature Granulocytes Pct Auto 2.2 %; Lymphocytes Percent Auto 1.2 % (20-44); Mean Corpuscular HGB Conc 34 gm/dL (32-36); Mean Corpuscular Hemoglobin 33 pg (26-34); Mean Corpuscular Volume 97 fL (80-100); Monocytes Percent Auto 4.3 % (0.0-11.0); Platelet Count* 186 K/uL (140-440); RDW Coefficient of Variation % 14.3 % (11.5-15.5); Red Blood Count 2.56 m/uL (4.30-5.90); White Blood Count* 18.28 K/uL (4.50-11.00)
[2022-07-10] MEDS: OXYCODONE 5 MG TABLET PO ×4 (06:41→21:01)
[2022-07-10 06:45] LABS: Slide Review Reflex No
[2022-07-10 06:55] LABS: Chloride* 93 mmol/L (96-114)
[2022-07-10 06:56] LABS: Potassium* 4.7 mmol/L (3.6-5.1)
[2022-07-10 06:58] LABS: Creatinine* 2.2 mg/dL (0.5-1.5); Est. Creatinine Clearance* 43.38; Estimated Glomerular Filt Rate 35 ml/min
[2022-07-10 06:59] LABS: Blood Urea Nitrogen* 49 mg/dL (7-30); Calcium* 7.3 mg/dL (8.4-10.6); Carbon Dioxide* 22 mmol/L (20-32); Glucose* 106 mg/dL (60-115); Magnesium* 2.5 mg/dL (1.5-2.6); Phosphorus* 5.7 mg/dL (2.5-4.5)
--- NOTE | 2022-07-10 07:06 | PC.NURSE ---
Pt is alert and oriented x3. Afebrile.?Inspiratory and expiratory wheezes heard in upper respiratory. Pt right hand has edema, porter wrap around right hand to reduce swelling.?Pt denies pain, chest pain, SOB, and N/V. CMS intact, pedal pulses present. Pt voiding with urinal. Pt continues to not have BM, PRN stool softener given. Pt is up SBA with walker and gait belt. Pt?tolerating a reg diet. Pt O2 stats ranged between 90-94% on room air. Pt slept throughout night. ?
[2022-07-10 07:40] LABS: Sodium* 121 mmol/L (135-149)
[2022-07-10] MEDS: 0.9 % SODIUM CHLORIDE 1000 ml 1,000 ML 125 ML IV (07:45)
[2022-07-10 07:49] LABS: C Reactive Protein* 36.7 mg/dL (0.5-1.0)
[2022-07-10 09:32] LABS: Lactate Sepsis w/Reflex* 0.8 mmol/L (0.5-1.9)
[2022-07-10] MEDS: ACETAMINOPHEN 325 MG TABLET 975 MG PO ×2 (09:32→17:47)
[2022-07-10] MEDS: METOPROLOL SUCCINATE (XL) 100 MG TAB 200 MG PO (09:34)
--- NOTE | 2022-07-10 09:47 | PC.NURSE ---
Patient reports slight confusion. Able to answer questions appropriately however forgetfulness noted by RN. PT/OT in to work with patient this AM around 0945 and assisted up to chair with light weight bearing on R leg, walker and GB. Pt had reported 10/10 pain with movement, medicated with 5mg oxy and 975 of tylenol just prior to therapy. Pt noted to facial grimace with movement however observed to tolerate the transfer from bed to recliner decently well. Agreed to an ice pack. Resting up in recliner. Sodium unchanged today at 121. Continue 2000cc FR. Pt compliant. Pt feels warm to touch, temp recheck this AM orally 98.7. Soft BP's, tachy. Fluids running and new bag hung. IV patent.
--- NOTE | 2022-07-10 10:10 | CRLHL7_ITS ---
For Patients: As a result of the Cures Act, medical imaging exams and procedure reports are released immediately into your electronic medical record. You may view this report before your referring provider. If you have questions, please contact your health care provider. HISTORY: Pain. TECHNIQUE: CT pelvis without contrast. COMPARISON: Pelvis and right femur radiographs 07/09/2022. Right femur radiographs 02/14/2022. PET-CT 05/24/2022. FINDINGS: Right femoral intramedullary nail. Hardware appears intact. Chronic ununited fracture of the proximal right femoral shaft. Heterotopic ossification around the right femur fracture is unchanged. Circumscribed mostly calcified region abutting the right femur fracture laterally now contains a small amount of gas. No acute fracture. Mild osteoarthritis of both hips. Pubic symphysis is maintained. Mild degenerative changes of the sacroiliac joints. Lower lumbar spine degenerative changes. No lytic or blastic bone lesions. Atherosclerotic calcifications. No lymphadenopathy. IMPRESSION: 1. No acute fracture. 2. Chronic ununited fracture of the proximal right femoral shaft post internal fixation. Unchanged heterotopic calcification in the area of the right femur fracture. Small amount of gas within a circumscribed mostly calcified region abutting the right femur fracture likely related to communication with the femoral marrow space at the fracture. No other findings to suggest soft tissue infection. 3. Mild osteoarthritis of both hips. Please note that all CT scans at this facility use dose modulation, iterative reconstruction, and/or weight-based dosing when appropriate to reduce radiation dose to as low as reasonably achievable. Dictated by Eliot Rosenthal MD @ 07/10/2022 12:43:33 PM (Electronically Signed)
--- NOTE | 2022-07-10 10:13 | CRLHL7_ITS ---
For Patients: As a result of the Cures Act, medical imaging exams and procedure reports are released immediately into your electronic medical record. You may view this report before your referring provider. If you have questions, please contact your health care provider. INDICATION: SARAN TECHNIQUE: Ultrasound renal bilateral. COMPARISON: None FINDINGS: Right kidney: 10.7 bone. Normal echotexture and cortex. No masses, stones, or hydronephrosis. Left kidney: 11.7 centimeter. Normal echotexture and cortex. No masses, stones, or hydronephrosis. IMPRESSION: Normal renal ultrasound. Dictated by Pako Veliz MD @ 07/10/2022 12:49:11 PM Dictated by: Pako Veliz MD @ 07/10/2022 12:49:16 (Electronically Signed)
[2022-07-10] MEDS: SODIUM CHLORIDE 1 GM TABLET PO ×3 (10:26→17:42)
[2022-07-10] MEDS: 0.9 % SODIUM CHLORIDE 1000 ml 1,000 ML 100 ML IV ×2 (10:27→17:48)
[2022-07-10] MEDS: PIPERACILLIN/TAZOBACTAM 3.375 GM in 0.9 % SODIUM CHLORIDE Mini-bag 100 ML IVPB ×3 (10:32→22:18)
--- NOTE | 2022-07-10 11:25 | PC.NURSE ---
New NA tabs added and NS peripheral fluids decreased to 100ml/hr. Sodium lab ordered for 1600 - requested MD be updated on lab results to assure slow rise in sodium level. Dr. Fisher verbalized sodium above 127 would be of concern. Zosyn started d/t UTI. BP's continue to be soft and HR tachy, pt oral temp 98.7 however hot to touch. pt verbalizes I feel warm. will continue to monitor.
--- NOTE | 2022-07-10 11:33 | P.IMPN_ITS ---
Progress Note: A&P Assessment and plan (1) Sepsis: Problem details: presumed UTI? lactate WNl; elevated WBC+ procal+ tachycardia Status: Acute Assessment and Plan: start zosyn; UCx pending, continue IVF (2) Stage 3 chronic kidney disease: Problem details: Continue to monitor. Fluid resuscitation. Status: Acute Assessment and Plan: Cr increasing to 2.2; continue IVF; avoid nephrotoxic agents (3) Hyperkalemia: Problem details: Chronic. Associated with chronic kidney disease. Not currently on any active treatment. Will hold lisinopril due to acute on chronic kidney disease and hyperkalemia. Status: Acute Assessment and Plan: Resolved (4) Acute hyponatremia: Problem details: Due to chemo and therapy induced nausea, vomiting, diarrhea and anorexia. Will provide hydration and fluid restriction and monitor. Status: Acute Assessment and Plan: 07/10: Sodium unchanged at 121; continue fluid restriction; start Sodium Chloride tablets; serial sodium checks goal correction 4-6 meq over 24 hours (5) Lower extremity pain, right: Problem details: I suspect this is related to his pathologic fracture with intramedullary rodding from March 2020. There is a failure of the hardware with fractured screws which is old. I spoke with an orthopedist at [place]. He indicates that this may need to be revised but they would not do it right now with recent chemotherapy. His orthopedic surgeon wants him to be bearing weight only without significant pain. Likely he will be wheelchair-bound as a result. Status: Acute Assessment and Plan: Plan: CT hip/pelvis today; add prn IV dilaudid (6) Lung cancer metastatic to bone: Problem details: Right femur see above Status: Acute (7) Stage IV squamous cell carcinoma of lung: Status: Acute (8) Fracture of right femur: Problem details: See above Status: Acute (9) Hypocalcemia: Problem details: Recently had hypercalcemia. Now borderline low calcium. Follow. Status: Acute (10) Metastasis to adrenal gland: Problem details: Of uncertain clinical significance right now Status: Acute (11) Hypertension: Problem details: Hold amlodipine, diltiazem, lisinopril due to low blood pressure and high potassium. Consider restarting amlodipine or diltiazem, diltiazem if needing more rate control. Re-evaluate need for lisinopril given chronic hyperkalemia Status: Acute Subjective Date Seen: 07/10/22 Exam Const: Vital Signs, click to edit/add: Vital Signs - 24 hr 07/09/22 11:39 07/09/22 13:47 07/09/22 14:00 Temperature 99.6 F Pulse Rate 101 H 101 H Pulse Rate [Pulse Oximeter] 100 Respiratory Rate 22 Blood Pressure Blood Pressure [Ri ght Arm] Blood Pressure [Ri ght Upper Arm] 125/78 Pulse Oximetry 90 95 94 Oxygen Delivery Me thod Room Air Oxygen Flow Rate 07/09/22 14:01 07/09/22 14:15 07/09/22 14:30 Temperature Pulse Rate 102 H 102 H 83 Pulse Rate [Pulse Oximeter] Respiratory Rate Blood Pressure 121/82 Blood Pressure [Ri ght Arm] Blood Pressure [Ri ght Upper Arm] Pulse Oximetry 96 93 91 Oxygen Delivery Me thod Oxygen Flow Rate 07/09/22 14:31 07/09/22 14:45 07/09/22 15:00 Temperature Pulse Rate 84 86 86 Pulse Rate [Pulse Oximeter] Respiratory Rate Blood Pressure 117/77 Blood Pressure [Ri ght Arm] Blood Pressure [Ri ght Upper Arm] Pulse Oximetry 90 95 91 Oxygen Delivery Me thod Oxygen Flow Rate 07/09/22 15:01 07/09/22 15:15 07/09/22 15:30 Temperature Pulse Rate 86 85 84 Pulse Rate [Pulse Oximeter] Respiratory Rate Blood Pressure 119/73 Blood Pressure [Ri ght Arm] Blood Pressure [Ri ght Upper Arm] Pulse Oximetry 96 96 91 Oxygen Delivery Me thod Oxygen Flow Rate 07/09/22 15:31 07/09/22 15:45 07/09/22 16:00 Temperature Pulse Rate 84 87 90 Pulse Rate [Pulse Oximeter] Respiratory Rate Blood Pressure 114/78 Blood Pressure [Ri ght Arm] Blood Pressure [Ri ght Upper Arm] Pulse Oximetry 90 92 93 Oxygen Delivery Me thod Oxygen Flow Rate 07/09/22 16:01 07/09/22 16:15 07/09/22 16:30 Temperature Pulse Rate 90 92 87 Pulse Rate [Pulse Oximeter] Respiratory Rate Blood Pressure 126/92 H Blood Pressure [Ri ght Arm] Blood Pressure [Ri ght Upper Arm] Pulse Oximetry 91 95 89 Oxygen Delivery Me thod Oxygen Flow Rate 07/09/22 16:31 07/09/22 16:45 07/09/22 17:40 Temperature Pulse Rate 88 91 Pulse Rate [Pulse Oximeter] Respiratory Rate 25 H Blood Pressure 104/66 Blood Pressure [Ri ght Arm] Blood Pressure [Ri ght Upper Arm] Pulse Oximetry 94 90 94 Oxygen Delivery Me thod Room Air Oxygen Flow Rate 07/09/22 23:45 07/09/22 23:45 07/09/22 23:45 Temperature 98.4 F Pulse Rate Pulse Rate [Pulse Oximeter] 72 72 Respiratory Rate 20 20 20 Blood Pressure Blood Pressure [Ri ght Arm] 96/60 Blood Pressure [Ri ght Upper Arm] Pulse Oximetry 94 94 Oxygen Delivery Me thod Room Air Room Air Oxygen Flow Rate 07/10/22 02:30 07/10/22 07:00 07/10/22 07:00 Temperature 98.6 F Pulse Rate Pulse Rate [Pulse Oximeter] 92 92 Respiratory Rate 10 L 16 16 Blood Pressure Blood Pressure [Ri ght Arm] 100/64 Blood Pressure [Ri ght Upper Arm] Pulse Oximetry 90 92 Oxygen Delivery Me thod Room Air Room Air Oxygen Flow Rate 0 07/10/22 07:00 Temperature 98.1 F Pulse Rate Pulse Rate [Pulse Oximeter] 104 H Respiratory Rate 16 Blood Pressure Blood Pressure [Ri ght Arm] 106/67 Blood Pressure [Ri ght Upper Arm] Pulse Oximetry 92 Oxygen Delivery Me thod Room Air Oxygen Flow Rate 0 Labs Labs: Laboratory Results - last 24 hr 07/09/22 07/09/22 07/09/22 12:47 15:09 19:20 WBC 19.80 H RBC 2.76 L Hgb 9.1 L Hct 26.3 L MCV 95 MCH 33 MCHC 35 RDW Coeff of Rush 14.0 Plt Count 176 Neut % (Auto) 93.9 H Lymph % (Auto) 1.0 L [place] % (Auto) 3.9 Eos % (Auto) 0.0 Baso % (Auto) 0.2 Neut # (Auto) 18.60 H Lymph # (Auto) 0.20 L [place] # (Auto) 0.80 Eos # (Auto) 0.00 Baso # (Auto) 0.00 ESR >102 L D-Dimer Quant (PE/DVT) Sodium 119 L* 121 L* Potassium 5.2 H Chloride 88 L Carbon Dioxide 24 BUN 45 H Creatinine 2.0 H Estimated Creat Clear 47.72 Estimated GFR 39 Glucose 137 H Calcium 7.6 L Phosphorus Magnesium Lactate Baseline C-Reactive Protein 42.2 H 25-OH Vitamin D Total 22 L Procalcitonin Urine Color Urine Appearance Urine pH Ur Specific [place] Urine Protein Urine Glucose (UA) Urine Ketones Urine Blood Urine Nitrite Urine Bilirubin Urine Urobilinogen Ur Leukocyte Esterase Urine RBC Urine WBC Ur Squamous Epith Cells Urine Bacteria Fine Granular Casts SARS-CoV-2 (PCR) Negative SARS-CoV-2 Influenza Type A (PCR) Negative PCR FLU A Influenza Type B (PCR) Negative PCR FLU B RSV (PCR) Negative PCR RSV 07/09/22 07/09/22 07/10/22 21:10 22:15 06:16 WBC 18.28 H RBC 2.56 L Hgb 8.4 L Hct 24.7 L MCV 97 MCH 33 MCHC 34 RDW Coeff of [place] 14.3 Plt Count 186 Neut % (Auto) 92.0 H Lymph % (Auto) 1.2 L [place] % (Auto) 4.3 Eos % (Auto) 0.2 Baso % (Auto) 0.1 Neut # (Auto) 16.80 H Lymph # (Auto) 0.20 L [place] # (Auto) 0.80 Eos # (Auto) 0.00 Baso # (Auto) 0.00 ESR D-Dimer Quant (PE/DVT) 7.16 H Sodium 121 L* Potassium 4.7 Chloride 93 L Carbon Dioxide 22 BUN 49 H Creatinine 2.2 H Estimated Creat Clear 43.38 Estimated GFR 35 Glucose 106 Calcium 7.3 L Phosphorus 5.7 H Magnesium 2.5 Lactate Baseline C-Reactive Protein 36.7 H 25-OH Vitamin D Total Procalcitonin Urine Color Yellow Urine Appearance Clear Urine pH 5.0 Ur Specific [place] 1.015 Urine Protein 2+ A Urine Glucose (UA) Negative Urine Ketones Negative Urine Blood Negative Urine Nitrite Negative Urine Bilirubin 1+ A Urine Urobilinogen 0.2 Ur Leukocyte Esterase Negative Urine RBC 0-2 Urine WBC 0-2 Ur Squamous Epith Cells Few Urine Bacteria Moderate A Fine Granular Casts Few A SARS-CoV-2 (PCR) Influenza Type A (PCR) Influenza Type B (PCR) RSV (PCR) 07/10/22 09:26 WBC RBC Hgb Hct MCV MCH MCHC RDW Coeff of [place] Plt Count Neut % (Auto) Lymph % (Auto) [place] % (Auto) Eos % (Auto) Baso % (Auto) Neut # (Auto) Lymph # (Auto) [place] # (Auto) Eos # (Auto) Baso # (Auto) ESR D-Dimer Quant (PE/DVT) Sodium Potassium Chloride Carbon Dioxide BUN Creatinine Estimated Creat Clear Estimated GFR Glucose Calcium Phosphorus Magnesium Lactate Baseline 0.8 C-Reactive Protein 25-OH Vitamin D Total Procalcitonin 18.00 H Urine Color Urine Appearance Urine pH Ur Specific [place] Urine Protein Urine Glucose (UA) Urine Ketones Urine Blood Urine Nitrite Urine Bilirubin Urine Urobilinogen Ur Leukocyte Esterase Urine RBC Urine WBC Ur Squamous Epith Cells Urine Bacteria Fine Granular Casts SARS-CoV-2 (PCR) Influenza Type A (PCR) Influenza Type B (PCR) RSV (PCR)
[2022-07-10] MEDS: polyethylene glycoL 3350 17 GM PACK PO (14:37)
--- NOTE | 2022-07-10 15:20 | PC.NURSE ---
Spouse and daughter updated at 1500. Pt tolerating movement significantly better than this morning and no extra pain meds have been given since 929. no BM since 07/06 - miralax given at 1430. Dtr in room. Afebrile 98.7. Report given to KECIA Lamb.
[2022-07-10] MEDS: SODIUM CHLORIDE 0.9 % (FLUSH) 10 ML SYRINGE 5 ML IVF (20:46)
[2022-07-10] MEDS: ENOXAPARIN 40 MG/0.4 ML INJ SUBCUT (20:46)
[2022-07-10 21:49] LABS: Sodium* 122 mmol/L (135-149)
[2022-07-10] MEDS: 0.9 % SODIUM CHLORIDE 500 ML 500 ML IV (23:25)
--- NOTE | 2022-07-10 23:30 | PC.NURSE ---
Shift [id number]- Patient up to chair until this evening returning back to bed. He states pain to right leg with relief from PRN pain medication. He is able to use walker, gait belt and SBA to move from chair to bed. Oral intake is poor. Occasional cough.
[2022-07-11] VITALS (9 sets, daily range): BP systolic 112–140; BP diastolic 66–82; PULSE 84–111; RESP 18–20; TEMP 36.5–38.8; O2SAT 86–96
[2022-07-11] MEDS: 0.9 % SODIUM CHLORIDE 1000 ml 1,000 ML 150 ML IV (03:18)
[2022-07-11] MEDS: PIPERACILLIN/TAZOBACTAM 3.375 GM in 0.9 % SODIUM CHLORIDE Mini-bag 100 ML IVPB ×4 (03:56→22:27)
--- NOTE | 2022-07-11 04:00 | PC.NURSE ---
Pt rested well this night. VS unremarkable. LS coarse. No productive, intermittent cough. O2 low 90s on RA.
[2022-07-11] MEDS: OXYCODONE 5 MG TABLET PO ×2 (05:13→17:43)
--- NOTE | 2022-07-11 05:34 | PC.NURSE ---
Pt was heavy assist 2 to stand at bedside and use urinal. Pt is able to stand. Slow to respond to questions but answers correctly.
[2022-07-11 06:41] LABS: Basophils Percent Auto 0.1 % (0.0-3.0); Eosinophils Percent Auto 0.1 % (0.0-7.0); Hematocrit 26.6 % (37.0-53.0); Hemoglobin* 8.8 gm/dL (13.5-17.5); Immature Granulocytes Pct Auto 0.6 %; Lymphocytes Percent Auto 1.1 % (20-44); Mean Corpuscular HGB Conc 33 gm/dL (32-36); Mean Corpuscular Hemoglobin 33 pg (26-34); Mean Corpuscular Volume 99 fL (80-100); Monocytes Percent Auto 5.4 % (0.0-11.0); Neutrophils Percent Auto 92.7 % (42.0-72.0); Platelet Count* 186 K/uL (140-440); RDW Coefficient of Variation % 14.5 % (11.5-15.5); Red Blood Count 2.69 m/uL (4.30-5.90); White Blood Count* 14.88 K/uL (4.50-11.00)
[2022-07-11 06:44] LABS: Slide Review Reflex No
[2022-07-11 06:49] LABS: Chloride* 98 mmol/L (96-114); Potassium* 4.8 mmol/L (3.6-5.1)
[2022-07-11 06:51] LABS: Creatinine* 2.4 mg/dL (0.5-1.5); Est. Creatinine Clearance* 39.77; Estimated Glomerular Filt Rate 31 ml/min
[2022-07-11 06:52] LABS: Blood Urea Nitrogen* 53 mg/dL (7-30); Carbon Dioxide* 17 mmol/L (20-32); Glucose* 139 mg/dL (60-115)
[2022-07-11 06:53] LABS: Calcium* 6.8 mg/dL (8.4-10.6)
[2022-07-11 07:20] LABS: C Reactive Protein* 31.3 mg/dL (0.5-1.0)
[2022-07-11 07:21] LABS: Sodium* 123 mmol/L (135-149)
--- NOTE | 2022-07-11 07:53 | CRLHL7_ITS ---
For Patients: As a result of the Century Cures Act, medical imaging exams and procedure reports are released immediately into your electronic medical record. You may view this report before your referring provider. If you have questions, please contact your health care provider. INDICATION: Altered mental status, history of lung cancer TECHNIQUE: CT head without contrast. COMPARISON: None. FINDINGS: CSF spaces: Within normal limits for age. Brain parenchyma: The quiroz-white differentiation is normal. No sign of mass, hemorrhage, or midline shift. Skull base and calvarium: Mild mucosal thickening paranasal sinuses. Atherosclerosis. The visualized orbits are grossly unremarkable. No skull fractures. Congenital incomplete fusion of the posterior arch of C1. IMPRESSION: Unremarkable noncontrast head CT. Please note that all CT scans at this facility use dose modulation, iterative reconstruction, and/or weight-based dosing when appropriate to reduce radiation dose to as low as reasonably achievable. Dictated by Cortes Ewing MD @ 07/11/2022 9:12:45 AM (Electronically Signed)
--- NOTE | 2022-07-11 07:54 | CRLHL7_ITS ---
For Patients: As a result of the Century Cures Act, medical imaging exams and procedure reports are released immediately into your electronic medical record. You may view this report before your referring provider. If you have questions, please contact your health care provider. INDICATION: AMS, fever. TECHNIQUE: CT chest, abdomen and pelvis acquired with 100 cc Omnipaque 370 IV contrast. COMPARISON: PET-CT 05/24/2022. FINDINGS: CHEST Lungs and pleura: Known left upper lobe mass, not significantly changed. An additional mixed attenuation opacity in the left lower lobe which is previously mildly FDG avid is also similar compared to prior, as is a small partially loculated pleural effusion at the left lung base with associated pleural thickening. A small 2 centimeter ground-glass opacity in the medial aspect of the right upper lung tissue may reflect infection. Heart and vasculature: Heart size is normal. Thoracic aorta and pulmonary artery are normal in caliber. Lymph node/mediastinum: Known FDG avid supraclavicular and left axillary nodes, some of which have enlarged, for example a 3.5 centimeter left subpectoral node previously measured 3.1 centimeters. In mediastinal and hilar lymph nodes have not significantly changed in size. Chest wall: Axillary and left subpectoral lymphadenopathy is noted above. Bones: Unchanged T3 sclerotic lesion. This was not FDG avid on the recent PET-CT. New suspicious osseous lesion. ABDOMEN AND PELVIS: Liver: Normal in caliber and attenuation. No masses. Gallbladder and bile ducts: Unremarkable. Pancreas: No abnormalities. Spleen: Splenomegaly, unchanged Adrenal glands: Mild interval enlargement of previously FDG avid right adrenal mass which now measures 6.2 centimeters and previously measured 5.0 centimeters. Kidneys: No hydronephrosis or suspicious renal mass. Bilateral perinephric fat stranding, unchanged GI tract: Normal in caliber and appearance. No sign of mass or inflammation. Vasculature: Scattered atherosclerosis. No aneurysm. Mesenteric arteries are patent. Lymph nodes: Prominent mildly enlarged retroperitoneal lymph nodes, unchanged. Omentum/peritoneum/retroperitoneum/abdominal wall: No masses or infiltration. No free air or significant free fluid. Pelvic organs: Minimal diffuse thickening of the urinary bladder wall, nonspecific. Bones: Mild S1 sclerosis, unchanged and not recently FDG-avid. No new suspicious osseous lesion. Abdominal wall: New ill-defined soft tissue thickening along the left abdominal wall, possibly confluent edema or hematoma (axial series 7 images 35 through 104).. IMPRESSION: 1. Disease progression. Left lung mass with supraclavicular, axillary, mediastinal, hilar and upper abdominal lymphadenopathy as well as an adrenal metastasis. Axillary/subpectoral and adenopathy has increased, and the antrum metastasis has increased in size. 2. Mixed attenuation opacity in the left lower lobe, overall similar compared to prior. This may reflect scarring or post treatment change, but infection should be considered. There is also new small ground-glass opacity in the right lung which may reflect infection. 3. New soft tissue thickening along the subcutaneous tissues of the left lateral abdominal wall, possibly confluent edema, cellulitis or potentially hematoma. Please correlate clinically. Please note that all CT scans at this facility use dose modulation, iterative reconstruction, and/or weight-based dosing when appropriate to reduce radiation dose to as low as reasonably achievable. Dictated by Patricio Santos MD @ 07/11/2022 9:14:14 AM (Electronically Signed)
[2022-07-11] MEDS: ACETAMINOPHEN 325 MG TABLET 975 MG PO ×2 (07:55→17:43)
--- NOTE | 2022-07-11 08:11 | PM.IMPN1 ---
Progress Note: A&P Assessment and plan (1) Sepsis: Problem details: - elevated WBC and inflammatory markers, fever. Source unclear, NGTD on admission urine and blood cultures - given change in status, scanned head (wnl) and C/A/P (results above), move to CCU - continue Zosyn (07/10) Status: Acute (2) Altered mental status: Problem details: - ddx: metastatic disease, iatrogenic from opiates (although patient is not opiate naive), fever, metabolic derangement - head CT wnl, VBG exhibits mild acidosis Status: Acute (3) Stage 3 chronic kidney disease: Problem details: - with SARAN - continue to follow, IVF hydration Status: Acute (4) Hyperkalemia: Problem details: - chronic, associated with CKD. Holding lisinopril due to acute on chronic kidney disease and hyperkalemia Status: Acute (5) Acute hyponatremia: Problem details: - 2/2 chemo and therapy induced nausea, vomiting, diarrhea, anorexia, in addition to malignancy - on IVFs, oral fluid restriction, sodium supplementation Status: Acute (6) Lower extremity pain, right: Problem details: - suspect this is related to his pathologic fracture with intramedullary rodding, 03/2020 with failure of the hardware and fractured screws (not new) - Dr. Pinto spoke with [facility] upon admission, who indicated that this may need to be revised, but not acutely given recent chemotherapy - Ortho recommends bearing weight only without significant pain; likely he will be wheelchair-bound as a result Status: Acute (7) Stage IV squamous cell carcinoma of lung: Problem details: - follows with Oncology locally Status: Acute (8) Hypocalcemia: Problem details: - history of HYPERcalcemia, currently low, follow and treat prn Status: Acute (9) Metastasis to adrenal gland: Problem details: - uncertain clinical significance Status: Acute (10) Hypertension: Problem details: - holding home medications 2/2 hypotension on admission Status: Acute Plan - per above (move to CCU status, close lab monitoring) - Lovenox for ppx - updated by phone, questions answered Subjective Date Seen: 07/11/22 Interval history: Patient noted to have obtundation and fever this morning. His mental status improved after resolution of fever. Edward continues to have pain in his RLE; no other concerns for hospitalist team. Exam Narrative: Exam Narrative: When I initially see patient this morning, he is obtunded and diaphoretic not answering questions. Pupils are miotic. Upon reexamination after acetaminophen and imaging, patient is awake and answering questions appropriately HEENT: Normal external ears, pupils persistently miotic, EOMIs bilaterally, no scleral icterus CV: RRR, No concerning murmurs, rubs, or gallops R: Decreased lung sounds bilateral bases, L>R. + rales on L, intermittent expiratory wheezing that clears with cough Abdomen: Protuberant, no tenderness to palpation, no skin changes noted Ext: wwp, no concerning edema Skin: No concerning skin lesions or rashes on exposed skin Neuro: No focal deficits upon reexamination Psych: Appropriate Const: Vital Signs, click to edit/add: Vital Signs - 24 hr 07/10/22 11:00 07/10/22 15:50 07/10/22 15:50 Temperature 97.6 F 97.9 F Pulse Rate [Pulse Oximeter] 82 88 Respiratory Rate 16 18 Blood [facility] 111/73 117/69 Pulse Oximetry 97 93 93 Oxygen Delivery Me thod Room Air Room Air Room Air Oxygen Flow Rate 0 07/10/22 19:46 07/10/22 23:27 07/10/22 23:37 Temperature 98.8 F 98.8 F Pulse Rate [Pulse Oximeter] 96 89 89 Respiratory Rate 18 18 18 Blood Pressure [facility]] 116/63 125/78 Pulse Oximetry 92 90 Oxygen Delivery Me thod Room Air Room Air Oxygen Flow Rate 0 07/10/22 23:38 07/11/22 03:24 07/11/22 07:55 Temperature 98.8 F 102 F H Pulse Rate [Pulse Oximeter] 98 Respiratory Rate 18 18 Blood Pressure [[facility]] 140/82 H Pulse Oximetry 90 93 Oxygen Delivery Me thod Room Air Room Air Oxygen Flow Rate 0 0 Labs Labs: Laboratory Results - last 24 hr 07/10/22 07/10/22 07/11/22 09:26 20:01 06:08 WBC 14.88 H RBC 2.69 L Hgb 8.8 L Hct 26.6 L MCV 99 MCH 33 MCHC 33 RDW Coeff of [place] 14.5 Plt Count 186 Neut % (Auto) 92.7 H Lymph % (Auto) 1.1 L [place] % (Auto) 5.4 Eos % (Auto) 0.1 Baso % (Auto) 0.1 Neut # (Auto) 13.80 H Lymph # (Auto) 0.20 L [place] # (Auto) 0.80 Eos # (Auto) 0.00 Baso # (Auto) 0.00 Sodium 122 L* 123 L* Potassium 4.8 Chloride 98 Carbon Dioxide 17 L BUN 53 H Creatinine 2.4 H Estimated Creat Clear 39.77 Estimated GFR 31 Glucose 139 H Calcium 6.8 L Lactate Baseline 0.8 C-Reactive Protein 31.3 H Procalcitonin 18.00 H
[2022-07-11 09:04] LABS: HCO3 VBG 20 mmol/L (21-28); PCO2 VBG 39 mmHG (40-50); PO2 VBG 54.5 mmHG (25-47); pH VBG 7.316 (7.32-7.43)
[2022-07-11 09:59] LABS: C Reactive Protein* 31.1 mg/dL (0.5-1.0)
[2022-07-11] MEDS: METOPROLOL SUCCINATE (XL) 100 MG TAB 200 MG PO (10:06)
[2022-07-11] MEDS: SENNOSIDES/DOCUSATE TABLET 1 TAB PO ×2 (10:06→21:08)
[2022-07-11] MEDS: SODIUM CHLORIDE 1 GM TABLET PO ×3 (10:07→17:40)
[2022-07-11] MEDS: LACTATED RINGERS 1000 ML 500 ML IV (10:07)
[2022-07-11] MEDS: SODIUM CHLORIDE 0.9 % (FLUSH) 10 ML SYRINGE 5 ML IVF (10:07)
--- NOTE | 2022-07-11 14:36 | PC.NURSE ---
AT BEGINNING OF SHIFT, PATIENT LETHARGIC AND DROWSY. TEMP FOUND TO BE 102 AND O2 SATS 86-87%RA. O2 PLACED AT 2L AND TYLENOL ADMINISTERED. PATIENT HAVING BILATERAL ARM TREMORS. ORIENTED x3. DR. MATTHEWS TO ROOM. PATIENT SENT FOR HEAD AND CHEST CT AND RETURNED TO CCU3 UNIT PATIENT. PATIENT BECAME DIAPHORETIC AND CARES COMPLETED. TEMP RECHECK 97.7 AND PATIENT BECAME MORE ALERT AND TREMORS CEASED. PATIENT WAS ABLE TO GET UP WITH A1, WALKER AND GAIT BELT AND AMBULATED TO SINK IN ROOM AND UP TO RECLINER. PATIENT DOES REPORT DECREASED APPETITE BUT DENIES NAUSEA WITH EATING. PATIENT DECLINED PAIN MEDS FOR RIGHT LEG PAIN BUT ACTIVE ICE WAS APPLIED.
[2022-07-11 14:49] LABS: HCO3 VBG 22 mmol/L (21-28); Ionized Calcium* 1.02 mmol/L (1.11-1.30); PCO2 VBG 50 mmHG (40-50); PO2 VBG 31.2 mmHG (25-47)
[2022-07-11] MEDS: LACTATED RINGERS 1000 ML 1,000 ML 150 ML IV (15:23)
[2022-07-11 15:32] LABS: Chloride* 96 mmol/L (96-114); Potassium* 4.3 mmol/L (3.6-5.1); Sodium* 125 mmol/L (135-149)
[2022-07-11 15:35] LABS: Blood Urea Nitrogen* 52 mg/dL (7-30); Carbon Dioxide* 22 mmol/L (20-32); Creatinine* 2.5 mg/dL (0.5-1.5); Est. Creatinine Clearance* 38.17; Estimated Glomerular Filt Rate 30 ml/min
[2022-07-11 15:36] LABS: Calcium* 7.2 mg/dL (8.4-10.6); Glucose* 136 mg/dL (60-115)
[2022-07-11] MEDS: ENOXAPARIN 40 MG/0.4 ML INJ SUBCUT (21:07)
[2022-07-11] MEDS: FUROSEMIDE 10 MG/ML inj 20 MG IVP (21:35)
--- NOTE | 2022-07-11 22:12 | PC.NURSE ---
Shift [id number]- Patient states he has a hard time determining pain level at rest. PRN pain medication given with relief. He repositions himself between lying in bed and sitting at edge of bed. He is alert and oriented. He states he feels swollen tonight- arms and legs are edematous- ID bands replaced. MD updated- see orders. Patient still declines TEDs, though education provided. He is saline locked per MD order. Poor oral intake of foods and fluids.
[2022-07-12] VITALS (11 sets, daily range): BP systolic 109–121; BP diastolic 62–75; PULSE 77–93; RESP 14–20; TEMP 36.4–36.6; O2SAT 93–97
[2022-07-12] MEDS: PIPERACILLIN/TAZOBACTAM 3.375 GM in 0.9 % SODIUM CHLORIDE Mini-bag 100 ML IVPB (04:16)
[2022-07-12] MEDS: ACETAMINOPHEN 325 MG TABLET 975 MG PO ×2 (04:17→17:43)
[2022-07-12] MEDS: SODIUM CHLORIDE 0.9 % (FLUSH) 10 ML SYRINGE 5 ML IVF ×2 (04:17→10:30)
--- NOTE | 2022-07-12 05:38 | PC.NURSE ---
END OF SHIFT NOTE: PT PLEASANT AND COOPERATIVE WITH CARES. TELE READS NSR. DENIES CP, SOB, N/V. PT DID NOT AMBULATE THIS SHIFT. ACTIVITY ORDER IS NWB TO EFFECTED EXTREMITY. VSS ON RA; AFEBRILE. PT RATES RIGHT LEG PAIN 0-8/10 WITH RELIEF FROM PRN MED (SEE EMAR). BED ALARM ON AND CALL LIGHT WITHIN PT?S REACH.?
[2022-07-12 06:49] LABS: HCO3 VBG 19 mmol/L (21-28); Lactate* 1.8 mmol/L (0.5-1.9); PCO2 VBG 41 mmHG (40-50); PO2 VBG 64.5 mmHG (25-47); pH VBG 7.278 (7.32-7.43)
[2022-07-12 06:56] LABS: Basophils Percent Auto 0.2 % (0.0-3.0); Eosinophils Percent Auto 0.3 % (0.0-7.0); Immature Granulocytes Pct Auto 0.4 %; Lymphocytes Percent Auto 2.7 % (20-44); Mean Corpuscular HGB Conc 33 gm/dL (32-36); Mean Corpuscular Hemoglobin 33 pg (26-34); Mean Corpuscular Volume 99 fL (80-100); Monocytes Percent Auto 5.7 % (0.0-11.0); Neutrophils Percent Auto 90.7 % (42.0-72.0); Platelet Count* 291 K/uL (140-440); RDW Coefficient of Variation % 14.6 % (11.5-15.5); Red Blood Count 2.74 m/uL (4.30-5.90)
[2022-07-12 07:04] LABS: Slide Review Reflex No
[2022-07-12 07:13] LABS: Chloride* 99 mmol/L (96-114)
[2022-07-12 07:14] LABS: Albumin* 2.9 g/dL (3.3-5.0); Sodium* 127 mmol/L (135-149)
[2022-07-12 07:15] LABS: Potassium* 4.9 mmol/L (3.6-5.1)
[2022-07-12 07:17] LABS: Alanine Aminotransferase* 22 U/L (4-50); Alkaline Phosphatase* 199 U/L (40-150); Aspartate Amino Transferase* 22 U/L (12-35); Bilirubin Total* 0.5 mg/dL (0.1-1.5); Carbon Dioxide* 19 mmol/L (20-32); Creatinine* 2.7 mg/dL (0.5-1.5); Est. Creatinine Clearance* 35.35; Estimated Glomerular Filt Rate 27 ml/min; Total Protein* 6.1 g/dL (6.0-8.3)
[2022-07-12 07:18] LABS: Blood Urea Nitrogen* 55 mg/dL (7-30); Calcium* 7.7 mg/dL (8.4-10.6); Glucose* 138 mg/dL (60-115)
[2022-07-12 08:15] LABS: C Reactive Protein* 33.5 mg/dL (0.5-1.0)
--- NOTE | 2022-07-12 09:46 | P.IMPN_ITS ---
Progress Note: A&P Assessment and plan (1) Sepsis: Problem details: - elevated WBC and inflammatory markers, fever. 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 History of this, associated with CKD. Holding lisinopril due to acute on chronic kidney disease, hypotension, and hyperkalemia Status: Acute (6) Acute hyponatremia: Problem details: - 2/2 chemo and therapy induced nausea, vomiting, diarrhea, anorexia, in addition to malignancy - on IVFs, oral fluid restriction, sodium supplementation Status: Acute (7) Lower extremity pain, right: Problem details: - suspect this is related to his pathologic fracture with intramedullary rodding, 03/2020 with failure of the hardware and fractured screws (not new) - Dr. Pinto spoke with [facility] upon admission, who indicated that this may need to be revised, but not acutely given recent chemotherapy - Ortho recommends bearing weight only without significant pain; likely he will be wheelchair-bound as a result with ambulating only for transfers Status: Acute (8) Hypocalcemia: Problem details: - history of HYPERcalcemia, currently low, follow and treat prn Status: Acute (9) Metastasis to adrenal gland: Problem details: - uncertain clinical significance Status: Acute (10) Hypertension: Problem details: - holding home medications 2/2 hypotension during stay Status: Acute Plan - per above - renally dosed Lovenox, SCDs, Teds for ppx Subjective Date Seen: 07/12/22 Interval history: Patient has not had any recurrence of fever since yesterday. He is overall feeling improved, continues to have right lower extremity pain. Sodium continues to slowly/appropriately improve (127 today), Creatinine up to 2.7. Exam Narrative: Exam Narrative: GEN: Alert and oriented, sitting comfortably in bed and nontoxic in appearance HEENT: Pupils miotic, EOMIs bilaterally, no scleral icterus CV: RRR, No concerning murmurs, rubs, or gallops R: Rhonchorous lung sounds with mild expiratory wheezing noted in bilateral apices, decreased air movement bilateral bases, L>R Ext: 2-3+ edema BLE Skin: No concerning skin lesions or rashes on exposed skin Neuro: No focal deficits, no resting tremor Psych: Appropriate Const: Vital Signs, click to edit/add: Vital Signs - 24 hr 07/11/22 10:00 07/11/22 11:00 07/11/22 12:32 Temperature 97.7 F Pulse Rate 88 Pulse Rate [Pulse Oximeter] 87 Respiratory Rate 18 Blood Pressure [Ri ght Arm] 120/69 Pulse Oximetry 96 95 Oxygen Delivery Me thod Nasal Cannula Room Air Oxygen Flow Rate 2 07/11/22 15:15 07/11/22 15:15 07/11/22 16:18 Temperature 97.8 F Pulse Rate 84 Pulse Rate [Pulse Oximeter] 86 Respiratory Rate 20 Blood Pressure [Ri ght Arm] 118/68 Pulse Oximetry 93 93 Oxygen Delivery Me thod Room Air Room Air Oxygen Flow Rate 07/11/22 19:00 07/12/22 00:00 07/12/22 00:00 Temperature 98.8 F Pulse Rate Pulse Rate [Pulse Oximeter] 88 81 Respiratory Rate 18 20 20 Blood Pressure [Ri ght Arm] 112/68 Pulse Oximetry 94 93 Oxygen Delivery Me thod Room Air Room Air Oxygen Flow Rate 07/12/22 00:00 07/12/22 04:00 07/12/22 02:05 Temperature 97.7 F 97.9 F Pulse Rate 82 Pulse Rate [Pulse Oximeter] 81 93 Respiratory Rate 20 18 Blood Pressure [Ri ght Arm] 119/67 121/75 Pulse Oximetry 93 97 Oxygen Delivery Me thod Room Air Room Air Oxygen Flow Rate 07/12/22 07:13 Temperature Pulse Rate 82 Pulse Rate [Pulse Oximeter] Respiratory Rate Blood Pressure [Ri ght Arm] Pulse Oximetry Oxygen Delivery Me thod Oxygen Flow Rate Labs Labs: Laboratory Results - last 24 hr 07/11/22 07/11/22 07/12/22 08:53 14:44 06:39 WBC 20.40 H RBC 2.74 L Hgb 9.0 L Hct 27.0 L MCV 99 MCH 33 MCHC 33 RDW Coeff of Rush 14.6 Plt Count 291 Neut % (Auto) 90.7 H Lymph % (Auto) 2.7 L [place] % (Auto) 5.7 Eos % (Auto) 0.3 Baso % (Auto) 0.2 Neut # (Auto) 18.50 H Lymph # (Auto) 0.60 L [place] # (Auto) 1.20 H Eos # (Auto) 0.10 Baso # (Auto) 0.00 VBG pH 7.250 L 7.278 L VBG pCO2 50 41 VBG pO2 31.2 64.5 H VBG HCO3 22 19 L Sodium 125 L 127 L Potassium 4.3 4.9 Chloride 96 99 Carbon Dioxide 22 19 L BUN 52 H 55 H Creatinine 2.5 H 2.7 H Estimated Creat Clear 38.17 35.35 Estimated GFR 30 27 Glucose 136 H 138 H Lactate 1.8 Calcium 7.2 L 7.7 L Ionized Calcium Kevin 1.02 L Total Bilirubin 0.5 AST 22 ALT 22 Alkaline Phosphatase 199 H C-Reactive Protein 31.1 H 33.5 H Total Protein 6.1 Albumin 2.9 L
[2022-07-12] MEDS: SODIUM CHLORIDE 1 GM TABLET PO ×3 (10:28→19:25)
[2022-07-12] MEDS: SENNOSIDES/DOCUSATE TABLET 1 TAB PO ×2 (10:28→21:19)
[2022-07-12] MEDS: PIPERACILLIN/TAZOBACTAM 2.25 GM in 0.9 % SODIUM CHLORIDE Mini-bag 100 ML IVPB ×2 (10:29→19:27)
[2022-07-12] MEDS: METOPROLOL SUCCINATE (XL) 100 MG TAB 200 MG PO (10:29)
[2022-07-12] MEDS: OXYCODONE 5 MG TABLET PO (11:31)
--- NOTE | 2022-07-12 15:16 | NUTR.NU ---
RDN with MD consult on 07/12/22 for hypoalbuminemia and patient undergoing chemotherapy. RDN visited with patient on 07/10/22 and offered diet education, scheduled snacks and supplements. Patient declined all interventions at that time. RDN attempted to visit with patient x4 today, patient unavailable on all attempts. Patient is receiving chemotherapy through [facility] at [facility]. RDN will attempt to visit with patient and provide diet education during next chemotherapy infusion in [facility]. RDN will continue to monitor and follow-up prn.
--- NOTE | 2022-07-12 18:43 | PC.NURSE ---
E.O. [phone] Pt requesting time for rest. Family at bedside majority of shift. Called pharmacy regarding IV abx scheduling and IVFs. Per day report, bicarb to run for 4 hours. Pharmacy suggested running bicarb until 1900, completing Zosyn, then returning to LR maintenance. Pt up to bathroom with A02 and walker. Mildly unstable during ambulation. Reported 10/10 pain in leg. Given 5mg oxy and PRN Tylenol with relief. Poor appetite per report but ate 50% of dinner. @ 400/1500mL fluid restriction (auto service writer filled cup to 300mL recently). MD in room to answer family questions.
[2022-07-12] MEDS: SODIUM BICARBONATE 650 MG TABLET PO (19:25)
[2022-07-12] MEDS: CALCIUM ACETATE 667 MG CAPSULE PO (19:26)
[2022-07-12] MEDS: ENOXAPARIN 30 MG/0.3ML INJ SUBCUT (21:19)
[2022-07-12] MEDS: LACTATED RINGERS 1000 ML 1,000 ML 150 ML IV (21:20)
[2022-07-13] VITALS (10 sets, daily range): BP systolic 140–162; BP diastolic 79–88; PULSE 82–100; RESP 14–16; TEMP 36.5–37.9; O2SAT 93–97
[2022-07-13] MEDS: PIPERACILLIN/TAZOBACTAM 2.25 GM in 0.9 % SODIUM CHLORIDE Mini-bag 100 ML IVPB ×4 (01:08→20:23)
--- NOTE | 2022-07-13 05:54 | PC.NURSE ---
END OF SHIFT NOTE: PT CALM AND COOPERATIVE. SOFT SPOKEN. DENIES CP, SOB, N/V. PT REMAINED IN BED THIS SHIFT. PT USES BESIDE URINAL. VSS ON RA; AFEBRILE. LS WITH INSPIRATORY WHEEZE AND EXPIRATORY RHONCHI NOTED. CALL LIGHT WITHIN PT?S REACH. PT RATED RIGHT HIP TO KNEE PAIN 5/10; DECLINED THE NEED FOR PAIN RELIEVER.
[2022-07-13 06:36] LABS: HCO3 VBG 23 mmol/L (21-28); PCO2 VBG 48 mmHG (40-50); PO2 VBG 34.5 mmHG (25-47)
[2022-07-13 06:49] LABS: Basophils Absolute Auto 0.02 K/uL (0.00-0.30); Basophils Percent Auto 0.2 % (0.0-3.0); Eosinophils Absolute Auto 0.03 K/uL (0.00-0.50); Eosinophils Percent Auto 0.3 % (0.0-7.0); Hematocrit 25.2 % (37.0-53.0); Hemoglobin* 8.2 gm/dL (13.5-17.5); Immature Granulocytes Abs Auto 0.07 K/uL (0.00-0.30); Immature Granulocytes Pct Auto 0.7 %; Lymphocytes Percent Auto 1.6 % (20-44); Mean Corpuscular HGB Conc 33 gm/dL (32-36); Mean Corpuscular Hemoglobin 32 pg (26-34); Mean Corpuscular Volume 100 fL (80-100); Monocytes Percent Auto 7.9 % (0.0-11.0); Neutrophils Percent Auto 89.3 % (42.0-72.0); Platelet Count* 246 K/uL (140-440); RDW Coefficient of Variation % 14.7 % (11.5-15.5); Red Blood Count 2.53 m/uL (4.30-5.90); White Blood Count* 9.77 K/uL (4.50-11.00)
[2022-07-13 07:21] LABS: Albumin* 2.6 g/dL (3.3-5.0)
[2022-07-13 07:22] LABS: Chloride* 101 mmol/L (96-114); Potassium* 4.2 mmol/L (3.6-5.1); Slide Review Reflex No; Sodium* 130 mmol/L (135-149)
[2022-07-13 07:24] LABS: Alkaline Phosphatase* 169 U/L (40-150); Aspartate Amino Transferase* 17 U/L (12-35); Bilirubin Total* 0.4 mg/dL (0.1-1.5); Blood Urea Nitrogen* 54 mg/dL (7-30); Carbon Dioxide* 23 mmol/L (20-32); Creatinine* 2.8 mg/dL (0.5-1.5); Est. Creatinine Clearance* 34.08; Estimated Glomerular Filt Rate 26 ml/min; Total Protein* 5.5 g/dL (6.0-8.3)
[2022-07-13 07:25] LABS: Alanine Aminotransferase* 17 U/L (4-50); Calcium* 7.9 mg/dL (8.4-10.6); Glucose* 108 mg/dL (60-115)
[2022-07-13 07:51] LABS: Phosphorus* 6.5 mg/dL (2.5-4.5)
[2022-07-13] MEDS: SODIUM BICARBONATE 650 MG TABLET PO ×2 (08:57→12:24)
[2022-07-13] MEDS: METOPROLOL SUCCINATE (XL) 100 MG TAB 200 MG PO (08:57)
[2022-07-13] MEDS: SODIUM CHLORIDE 1 GM TABLET PO ×3 (08:57→18:01)
[2022-07-13] MEDS: CALCIUM ACETATE 667 MG CAPSULE PO ×3 (08:58→18:01)
--- NOTE | 2022-07-13 12:47 | P.IMPN_ITS ---
Progress Note: A&P Assessment and plan (1) Sepsis: Problem details: - elevated WBC and inflammatory markers, fever (last fever 4/5 am). Source unclear, NGTD on urine and blood cultures - WBC normalized 07/13 - continue Zosyn (07/10), renally dosed - TTE 07/12/22: Final Impressions: 1. Technically limited exam. 2. Normal left ventricular size, mildly increased wall thickness, hyperdynamic global systolic function, calculated EF of 70 %. 3. Echo contrast was administrered to enhance visualization of all left ventricular segments. 4. Right ventricular cavity size is normal, global systolic RV function is normal. 5. Normal left atrium size. 6. The aortic valve is calcified, mild stenosis and trivial regurgitation. The aortic valve peak velocity is 2.0 m/s, the peak gradient is 16 mmHg, and the mean gradient is 9 mmHg. The aortic valve area is 2.79 cm?? with a dimensionless index of 0.62. The stroke volume index is 46.0 ml/m??. 7. The mitral valve is sclerotic, trace mitral regurgitation. 8. Tricuspid valve is normal. 9. The aortic sinus is dilated with a maximal diameter of 4.3 cm. 10. No pericardial effusion. Status: Acute (2) Stage 3 chronic kidney disease: Problem details: - + SARAN, renally dosing medications and holding nephrotoxins - continue to follow closely, low dose IVFs as tolerated - on scheduled calcium acetate for hyperphosphatemia - Given patient's persistently elevated creatinine, reviewed case with [facility] (Dr. Mejia) - no changes to management at this time, but recommends transfer to tertiary care facility with Nephrology capability. 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 History of this, associated with CKD. Holding lisinopril due to acute on chronic kidney disease, hypotension, and hyperkalemia Status: Acute (7) Acute hyponatremia: Problem details: - 2/2 chemo and therapy induced nausea, vomiting, diarrhea, anorexia, in addition to malignancy - treated with IVFs, oral fluid restriction, sodium supplementation, has improved appropriately Status: Acute (8) Lower extremity pain, right: Problem details: - suspect this is related to his pathologic fracture with intramedullary rodding, 03/2020 with failure of the hardware and fractured screws (not new) - Dr. Pinto spoke with [facility] upon admission, who indicated that this may need to be revised, but not acutely given recent chemotherapy - Ortho recommends bearing weight only without significant pain; likely he will be wheelchair-bound as a result with ambulating only for transfers - therapies aware and following - may require SNF upon discharge Status: Acute (9) Hypocalcemia: Problem details: - history of HYPERcalcemia, currently low to low-normal when corrected for hypoalbuminemia, follow and treat prn Status: Acute (10) Metastasis to adrenal gland: Problem details: - uncertain clinical significance Status: Acute (11) Hypertension: Problem details: - holding home medications 2/2 hypotension during stay Status: Acute Plan - per above - follow renal function closely, attempt transfer to [facility] - Initiate Remeron - renally dosed Lovenox for ppx - daughter updated at bedside, questions answered Subjective Date Seen: 07/13/22 Interval history: Ed is seen with daughter at bedside today. His affect has notably been flat, and p.o. intake has been decreased. His right leg pain persists, but is not worse from admission. He has no specific concerns for the hospitalist team today. Exam Const: Vital Signs, click to edit/add: Vital Signs - 24 hr 07/12/22 15:00 07/12/22 15:00 07/12/22 15:00 Temperature Pulse Rate Pulse Rate [Pulse Oximeter] 77 Respiratory Rate 20 20 20 Blood Pressure [Ri ght Arm] Pulse Oximetry 95 95 Oxygen Delivery Me thod Room Air Room Air Oxygen Flow Rate 2 2 07/12/22 15:40 07/12/22 19:00 07/12/22 19:57 Temperature 97.9 F Pulse Rate 90 78 Pulse Rate [Pulse Oximeter] 78 Respiratory Rate 14 Blood Pressure [Ri ght Arm] 120/69 Pulse Oximetry 94 Oxygen Delivery Me thod Room Air Oxygen Flow Rate 07/12/22 21:38 07/12/22 21:38 07/13/22 01:15 Temperature Pulse Rate Pulse Rate [Pulse Oximeter] 78 82 Respiratory Rate 14 14 14 Blood Pressure [Ri ght Arm] 140/79 H Pulse Oximetry 94 97 Oxygen Delivery Oh thod Room Air Room Air Oxygen Flow Rate 07/13/22 03:00 07/13/22 07:00 07/13/22 07:00 Temperature Pulse Rate Pulse Rate [Pulse Oximeter] 89 Respiratory Rate 14 16 14 Blood Pressure [Ri ght Arm] Pulse Oximetry 95 Oxygen Delivery Oh thod Room Air Oxygen Flow Rate 07/13/22 07:30 07/13/22 07:00 07/13/22 12:00 Temperature 98.2 F 97.7 F Pulse Rate 91 Pulse Rate [Pulse Oximeter] 89 88 Respiratory Rate 16 14 Blood Pressure [Ri ght Arm] 145/88 H 148/86 H Pulse Oximetry 95 94 Oxygen Delivery Oh thod Room Air Room Air Oxygen Flow Rate Labs Labs: Laboratory Results - last 24 hr 07/13/22 07/13/22 06:15 07:26 WBC 9.77 RBC 2.53 L Hgb 8.2 L Hct 25.2 L MCV 100 MCH 32 MCHC 33 RDW Coeff of Rush 14.7 Plt Count 246 Neut % (Auto) 89.3 H Lymph % (Auto) 1.6 L [place] % (Auto) 7.9 Eos % (Auto) 0.3 Baso % (Auto) 0.2 Neut # (Auto) 8.70 H Lymph # (Auto) 0.20 L [place] # (Auto) 0.80 Eos # (Auto) 0.03 Baso # (Auto) 0.02 VBG pH 7.290 L VBG pCO2 48 VBG pO2 34.5 VBG HCO3 23 Sodium 130 L Potassium 4.2 Chloride 101 Carbon Dioxide 23 BUN 54 H Creatinine 2.8 H Estimated Creat Clear 34.08 Estimated GFR 26 Glucose 108 Calcium 7.9 L Phosphorus 6.5 H* Total Bilirubin 0.4 AST 17 ALT 17 Alkaline Phosphatase 169 H Total Protein 5.5 L Albumin 2.6 L
[2022-07-13] MEDS: LACTATED RINGERS 1000 ML 1,000 ML 150 ML IV (13:58)
[2022-07-13] MEDS: ALBUMIN HUMAN 25% 25 GM/100 ML VIAL IVPB ×2 (17:35→19:06)
--- NOTE | 2022-07-13 18:30 | PC.NURSE ---
Pt is alert and oriented, pleasant but flat affect and withdrawn. Vitals stable, sys 150s this afternoon. Pt's LR discontinued this evening, pt started on Albumin x2, IV lasix 40mg at 1900, pt to start on sodium bicarb this evening after albumin infused per MD. Edema to BUE and BLE. Pt minimal appetite, snacks and meals encouraged, pt ate applesauce for breakfast, half a ham sandwich for lunch and fruit cup and juice for dinner, pt did have a protein shake brought in by family member with lunch as well, ok w/ MD for pt to have. Pt compliant with fluid restriction this shift. Pt stated 0/10 while at rest but increases sharply with movement to RLE, pt declined offer for all PRNs for pain. Pt worked w/ PT/OT this shift, NWB to RLE and pt to stand/pivot transfer to to bathroom for bowel movement needs, pt did have BM this shift, large. Tele NSR. 16fr Hughes cath placed this evening per order for accurate output monitoring, hughes patent and draining pale yellow urine. Pt has call light within reach and uses appropriately.
[2022-07-13] MEDS: FUROSEMIDE 10 MG/ML inj 40 MG IVP (19:06)
[2022-07-13] MEDS: ACETAMINOPHEN 325 MG TABLET 975 MG PO (19:56)
[2022-07-13] MEDS: MIRTAZAPINE 15 MG TABLET 7.5 MG PO (19:58)
[2022-07-13] MEDS: ENOXAPARIN 30 MG/0.3ML INJ SUBCUT (19:59)
[2022-07-13] MEDS: SODIUM CHLORIDE 0.9 % (FLUSH) 10 ML SYRINGE 5 ML IVF (20:24)
[2022-07-13 22:08] LABS: Chloride* 102 mmol/L (96-114); Sodium* 131 mmol/L (135-149)
[2022-07-13 22:11] LABS: Creatinine* 2.2 mg/dL (0.5-1.5); Est. Creatinine Clearance* 43.38; Estimated Glomerular Filt Rate 35 ml/min
[2022-07-13 22:12] LABS: Blood Urea Nitrogen* 46 mg/dL (7-30); Calcium* 8.2 mg/dL (8.4-10.6); Carbon Dioxide* 24 mmol/L (20-32); Glucose* 142 mg/dL (60-115); Magnesium* 2.6 mg/dL (1.5-2.6)
--- NOTE | 2022-07-13 23:07 | P.CCN_ITS ---
Subjective Subjective Interval history: patient was accepted to [facility] but declined transfer wants to go to [facility] Given Albumin infusion+lasix; IVF stopped; repeat BMP ordered; suspect will need additional diuresis; appears volume overloaded on clinical exam updated
[2022-07-14] VITALS (11 sets, daily range): BP systolic 171–200; BP diastolic 96–107; PULSE 85–107; RESP 18–20; TEMP 35.9–37.2; O2SAT 93–100
[2022-07-14] MEDS: PIPERACILLIN/TAZOBACTAM 2.25 GM in 0.9 % SODIUM CHLORIDE Mini-bag 100 ML IVPB ×3 (01:28→14:08)
--- NOTE | 2022-07-14 02:32 | CRLHL7_ITS ---
For Patients: As a result of the Century Cures Act, medical imaging exams and procedure reports are released immediately into your electronic medical record. You may view this report before your referring provider. If you have questions, please contact your health care provider. INDICATION: Dyspnea TECHNIQUE: Chest radiograph 1 view COMPARISON: 09/29/2020, 09/08/2020 FINDINGS: The sensitivity and specificity of the exam are moderately limited by the patient`s body habitus. Mediastinum: The mediastinum is normal in appearance. The heart silhouette is normal in size and morphology. Lung: Volume loss in the left hemithorax is present with masslike consolidation noted over the perihilar region. Small left pleural effusion seen. No pneumothorax is identified. Bone and Soft tissue: Unremarkable for age. IMPRESSION: 1. Volume loss in the left hemithorax is present with masslike consolidation noted over the perihilar region. Small left pleural effusion seen. The degree of consolidation has increased since prior examination and assessment with chest CT may be helpful. Dictated by Wenceslao Daigle MD @ 07/14/2022 3:15:08 AM Dictated by: Wenceslao Daigle MD @ 07/14/2022 03:15:11 (Electronically Signed)
[2022-07-14] MEDS: IPRAT-ALBUT 0.5-2.5 MG/3 ML NEB 1 NEB IH ×4 (03:04→21:29)
--- NOTE | 2022-07-14 03:37 | W.PM.CROSSCO ---
Assessment and Plan Assessment and plan (1) Dyspnea: Status: Acute Plan Ehospitalist Cross Cover Notified patient more short of breath. around 7pm was short of breath with activity, now later this evening short of breath at rest, purse lip breathing. Denies chest pain or feeling lightheaded or dizzy. O2 sats remain mid 90s on RA. Did get lasix earlier at 7pm for volume overload. Up 11 L but diuresis complicated by SARAN and low albumin CXR ordered/reviewed. Near white out of L lung on CXR. Radiologist suggested volume loss. Given these findings do feel its pertinent to repeat a CT to ensure no complications such as pneumothorax developed given underlying chronic finding in the left lung. He did improve some with duoneb which was given as well. Denies significant dsypnea. Discussed with patient and RN at bedside if increase work of breathing we can try bipap for symptomatic relief. Lasix 40mg and albumin again ordered for ongoing diuresis. Sue Coker MD
--- NOTE | 2022-07-14 03:50 | CRLHL7_ITS ---
For Patients: As a result of the Century Cures Act, medical imaging exams and procedure reports are released immediately into your electronic medical record. You may view this report before your referring provider. If you have questions, please contact your health care provider. Indication: Dyspnea Technique: CT chest without contrast Please note that all CT scans at this facility use dose modulation, iterative reconstruction, and/or weight-based dosing when appropriate to reduce radiation dose to as low as reasonably achievable. Comparison: CT dated July 11, 2022 Findings: Thyroid unremarkable. Re- demonstrated enlarged supraclavicular lymph nodes (series 2, image 11). The central airways appear patent. The esophagus decompressed. Redemonstrated right adrenal mass. No acute abnormality in the upper abdomen. Normal heart size. Small pericardial effusion. Normal course and caliber of the thoracic aorta and pulmonary arteries. Numerous enlarged mediastinal lymph nodes and left axillary lymph nodes similar to prior. Mild to moderate bilateral gynecomastia. Overall similar ill-defined left lung perihilar lung mass with additional areas of volume loss/consolidation and perilymphatic nodularity. There is no acute change from prior. Small left pleural effusion similar to prior. Similar left pleural thickening. There are a few right upper lobe pulmonary opacities which are overall unchanged from prior. Sclerotic lesion within the T3 vertebral body likely represents metastasis. No acute osseous abnormality. Impression: No significant change compared to prior. Similar left lung mass with associated volume loss, small effusion, lymphangitis carcinomatosis, and lymphadenopathy. Please note that all CT scans at this facility use dose modulation, iterative reconstruction, and/or weight-based dosing when appropriate to reduce radiation dose to as low as reasonably achievable. Dictated by Gary Wall MD @ 07/15/2022 8:50:29 AM (Electronically Signed)
[2022-07-14] MEDS: FUROSEMIDE 10 MG/ML inj 40 MG IVP (06:07)
[2022-07-14] MEDS: SODIUM CHLORIDE 0.9 % (FLUSH) 10 ML SYRINGE 5 ML IVF ×4 (06:08→21:29)
[2022-07-14 08:10] LABS: HCO3 VBG 26 mmol/L (21-28); Ionized Calcium* 1.11 mmol/L (1.11-1.30); PCO2 VBG 39 mmHG (40-50); PO2 VBG 50.4 mmHG (25-47); pH VBG 7.432 (7.32-7.43)
[2022-07-14] MEDS: ACETAMINOPHEN 325 MG TABLET 975 MG PO ×3 (08:10→23:23)
[2022-07-14] MEDS: OXYCODONE 5 MG TABLET PO ×2 (08:11→21:37)
--- NOTE | 2022-07-14 08:12 | PM.IMPN1 ---
Progress Note: A&P Assessment and plan (1) Dyspnea: Problem details: - noted 07/13 pm; no hypoxia - ddx: anxiety, tumor burden, infection, metabolic acidosis, anemia, fluid overload - VBG no longer exhibits acidosis on 07/14, Hgb is 8 (baseline 9-9.5), no significant changes on 07/14 imaging - will continue to monitor closely, strict Is/Os Status: Acute (2) Anhedonia: Problem details: - depression and decreased appetite noted - reviewed options for treatment with patient and daughter; after discussion, they'd like to trial Remeron (07/13) Status: Acute (3) Hypoalbuminemia: Problem details: - 2/2 acute illness on top of malignancy and recent chemo - likely contributing to edema - Nutrition following Status: Acute (4) Sepsis: Problem details: - elevated WBC and inflammatory markers, fever (last fever 4/5 am). Source unclear, NGTD on urine and blood cultures - WBC normalized 07/13 - continue Zosyn (07/10), renally dosed - TTE 07/12/22: Final Impressions: 1. Technically limited exam. 2. Normal left ventricular size, mildly increased wall thickness, hyperdynamic global systolic function, calculated EF of 70 %. 3. Echo contrast was administrered to enhance visualization of all left ventricular segments. 4. Right ventricular cavity size is normal, global systolic RV function is normal. 5. Normal left atrium size. 6. The aortic valve is calcified, mild stenosis and trivial regurgitation. The aortic valve peak velocity is 2.0 m/s, the peak gradient is 16 mmHg, and the mean gradient is 9 mmHg. The aortic valve area is 2.79 cm?? with a dimensionless index of 0.62. The stroke volume index is 46.0 ml/m??. 7. The mitral valve is sclerotic, trace mitral regurgitation. 8. Tricuspid valve is normal. 9. The aortic sinus is dilated with a maximal diameter of 4.3 cm. 10. No pericardial effusion. Status: Acute (5) Stage 3 chronic kidney disease: Problem details: - + SARAN, renally dosing medications and holding nephrotoxins - continue to follow closely, low dose IVFs as tolerated - on scheduled calcium acetate for hyperphosphatemia - Given patient's persistently elevated creatinine, reviewed case with [facility] (Dr. Mejia) on 07/13 - no changes to management at this time, but recommends transfer to tertiary care facility with Nephrology capability. No open beds at [facility] at this time; patient prefers transfer to [facility] over other hospitals - will continue to attempt transfer if renal function remains poor Status: Acute (6) Hyperkalemia: Problem details: - noted on admission, resolved 07/10. History of this, associated with CKD. Holding lisinopril due to acute on chronic kidney disease, hypotension, and hyperkalemia Status: Acute (7) Lower extremity pain, right: Problem details: - suspect this is related to his pathologic fracture with intramedullary rodding, 03/2020 with failure of the hardware and fractured screws (not new) - Dr. 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 Repeat imaging obtained without any acute changes. Renal function has improved over the last 24 hours, requiring low dose diuresis at this time given IVF administration and hypoalbuminemia. Continues to have significant RLE pain but doesn't ask for prn medications often; will schedule Tylenol and continue to offer prn Oxycodone. Exam Narrative: Exam Narrative: GEN: Alert and oriented HEENT: EOMIs bilaterally, no scleral icterus CV: RRR, soft systolic murmur without concerning features R: LCTA bilaterally without concerning wheezing, rales, or rhonchi Ext: 3+ edema of BLEs, also has 1-2+ edema BUEs Skin: No concerning skin lesions or rashes on exposed skin Neuro: No focal deficits Psych: Flat affect Const: Vital Signs, click to edit/add: Vital Signs - 24 hr 07/13/22 12:00 07/13/22 15:00 07/13/22 15:00 Temperature 97.7 F Pulse Rate 89 Pulse Rate [Pulse Oximeter] 88 89 Respiratory Rate 14 14 Blood Pressure [Ri ght Arm] 148/86 H Pulse Oximetry 94 Oxygen Delivery Me thod Room Air 07/13/22 15:00 07/13/22 15:00 07/13/22 19:56 Temperature 98.3 F 100.2 F H Pulse Rate Pulse Rate [Pulse Oximeter] 89 Respiratory Rate 14 14 Blood Pressure [Ri ght Arm] 152/86 H Pulse Oximetry 93 93 Oxygen Delivery Me thod Room Air Room Air 07/13/22 21:28 07/13/22 19:00 07/13/22 23:00 Temperature 98.6 F 100.2 F H Pulse Rate 90 Pulse Rate [Pulse Oximeter] 100 Respiratory Rate 16 Blood Pressure [Ri ght Arm] 162/88 H Pulse Oximetry 93 Oxygen Delivery Fl thod Room Air 07/13/22 23:00 07/13/22 23:00 07/13/22 23:00 Temperature 98.6 F Pulse Rate Pulse Rate [Pulse Oximeter] 90 90 Respiratory Rate 16 16 16 Blood Pressure [Ri ght Arm] Pulse Oximetry 93 Oxygen Delivery Me thod Room Air Room Air 07/14/22 03:00 Temperature 98.9 F Pulse Rate Pulse Rate [Pulse Oximeter] 107 H Respiratory Rate 18 Blood Pressure [Ri ght Arm] 171/96 H Pulse Oximetry 95 Oxygen Delivery Me thod Room Air Labs Labs: Laboratory Results - last 24 hr 07/13/22 21:47 Sodium 131 L Potassium 4.0 Chloride 102 Carbon Dioxide 24 BUN 46 H Creatinine 2.2 H Estimated Creat Clear 43.38 Estimated GFR 35 Glucose 142 H Calcium 8.2 L Magnesium 2.6
[2022-07-14] MEDS: SODIUM CHLORIDE 1 GM TABLET PO ×3 (08:13→18:15)
[2022-07-14 08:26] LABS: Basophils Absolute Auto 0.02 K/uL (0.00-0.30); Basophils Percent Auto 0.3 % (0.0-3.0); Eosinophils Absolute Auto 0.01 K/uL (0.00-0.50); Eosinophils Percent Auto 0.1 % (0.0-7.0); Hematocrit 24.5 % (37.0-53.0); Immature Granulocytes Abs Auto 0.09 K/uL (0.00-0.30); Immature Granulocytes Pct Auto 1.3 %; Mean Corpuscular HGB Conc 33 gm/dL (32-36); Mean Corpuscular Hemoglobin 32 pg (26-34); Mean Corpuscular Volume 99 fL (80-100); Monocytes Percent Auto 10.7 % (0.0-11.0); Neutrophils Percent Auto 84.6 % (42.0-72.0); Platelet Count* 243 K/uL (140-440); RDW Coefficient of Variation % 14.6 % (11.5-15.5); Red Blood Count 2.48 m/uL (4.30-5.90); White Blood Count* 6.89 K/uL (4.50-11.00)
[2022-07-14 08:28] LABS: Slide Review Reflex No
[2022-07-14 08:41] LABS: Chloride* 103 mmol/L (96-114)
[2022-07-14 08:42] LABS: Albumin* 2.9 g/dL (3.3-5.0); Potassium* 4.2 mmol/L (3.6-5.1); Sodium* 131 mmol/L (135-149)
[2022-07-14 08:44] LABS: Creatinine* 1.9 mg/dL (0.5-1.5); Est. Creatinine Clearance* 50.23; Estimated Glomerular Filt Rate 41 ml/min
[2022-07-14 08:45] LABS: Alanine Aminotransferase* 15 U/L (4-50); Alkaline Phosphatase* 172 U/L (40-150); Aspartate Amino Transferase* 23 U/L (12-35); Bilirubin Total* 0.5 mg/dL (0.1-1.5); Blood Urea Nitrogen* 45 mg/dL (7-30); Calcium* 7.8 mg/dL (8.4-10.6); Carbon Dioxide* 25 mmol/L (20-32); Glucose* 155 mg/dL (60-115); Phosphorus* 4.2 mg/dL (2.5-4.5); Total Protein* 5.6 g/dL (6.0-8.3)
[2022-07-14 08:46] LABS: Magnesium* 2.4 mg/dL (1.5-2.6)
[2022-07-14 08:59] LABS: Procalcitonin* 4.08 ng/mL (<0.50)
[2022-07-14] MEDS: CALCIUM ACETATE 667 MG CAPSULE PO ×3 (09:37→18:15)
[2022-07-14] MEDS: FUROSEMIDE 10 MG/ML inj IVP (09:37)
[2022-07-14] MEDS: SODIUM BICARBONATE 650 MG TABLET PO ×3 (09:38→18:16)
[2022-07-14] MEDS: AMLODIPINE 5 MG TABLET PO (09:38)
[2022-07-14] MEDS: METOPROLOL SUCCINATE (XL) 100 MG TAB 200 MG PO (09:39)
[2022-07-14] MEDS: FUROSEMIDE 10 MG/ML inj 20 MG IVP (16:09)
[2022-07-14 19:14] LABS: C.Difficile Negative (Negative); CDIFFEPI 027 PRESUMPTIVE NEGATIVE (Negative)
[2022-07-14] MEDS: MIRTAZAPINE 15 MG TABLET 7.5 MG PO (21:29)
[2022-07-14] MEDS: ENOXAPARIN 30 MG/0.3ML INJ SUBCUT (21:29)
--- NOTE | 2022-07-14 22:59 | PC.NURSE ---
Shift Note [id number]: Pt very tired and weak with flat affect this morning. Declined breakfast and lunch tray. Very sleepy, waking briefly to take meds and for VS before again falling asleep. Hypertensive today, BP meds restarted and parameters greater than 180 systolic for PRN Hydralazine. No PRN needed for HTN at this time. Pt exhibited increased energy this afternoon, smiling and enjoying visitors/family at the bedside. Increased PO intake including 100% beef broth and ensure clear/Sprite mix as well as 50% scrambled eggs and toast for dinner. C-diff negative although intermittent loose stools continue. Significant urine output to hughes and edema is markedly decreased. Pt has denied SOB at rest, LS continue to sound wheezy and scheduled duo-nebs given. Pivot transfers with assist of 1-2, he is weight bearing some on his right foot during transfers and states he can't avoid this. Scheduled Tylenol started for better pain control, 5 mg Oxy given this morning and again at HS. Pt stated he felt his fatigue this morning was exacerbated by lack of sleep overnight last night secondary to pain.
[2022-07-15] VITALS (8 sets, daily range): BP systolic 156–185; BP diastolic 89–110; PULSE 84–96; RESP 16–18; TEMP 36.3–37.4; O2SAT 92–94
--- NOTE | 2022-07-15 05:06 | PC.NURSE ---
Pt rested well this night. Pleasant and Cooperative. LS coarse. Afebrile. Damico patent and draining.
[2022-07-15 07:18] LABS: Ionized Calcium* 1.16 mmol/L (1.11-1.30)
[2022-07-15 07:28] LABS: Basophils Absolute Auto 0.02 K/uL (0.00-0.30); Basophils Percent Auto 0.3 % (0.0-3.0); Eosinophils Absolute Auto 0.03 K/uL (0.00-0.50); Eosinophils Percent Auto 0.5 % (0.0-7.0); Hematocrit 27.4 % (37.0-53.0); Hemoglobin* 8.9 gm/dL (13.5-17.5); Immature Granulocytes Abs Auto 0.16 K/uL (0.00-0.30); Immature Granulocytes Pct Auto 2.5 %; Lymphocytes Percent Auto 4.4 % (20-44); Mean Corpuscular HGB Conc 33 gm/dL (32-36); Mean Corpuscular Hemoglobin 32 pg (26-34); Mean Corpuscular Volume 99 fL (80-100); Neutrophils Percent Auto 79.3 % (42.0-72.0); Platelet Count* 228 K/uL (140-440); RDW Coefficient of Variation % 14.7 % (11.5-15.5); Red Blood Count 2.76 m/uL (4.30-5.90); White Blood Count* 6.38 K/uL (4.50-11.00)
[2022-07-15 07:32] LABS: Slide Review Reflex No
[2022-07-15 07:50] LABS: Chloride* 101 mmol/L (96-114); Potassium* 3.8 mmol/L (3.6-5.1); Sodium* 133 mmol/L (135-149)
[2022-07-15 07:52] LABS: Alkaline Phosphatase* 203 U/L (40-150); Aspartate Amino Transferase* 19 U/L (12-35); Bilirubin Total* 0.4 mg/dL (0.1-1.5); Carbon Dioxide* 28 mmol/L (20-32); Creatinine* 1.6 mg/dL (0.5-1.5); Est. Creatinine Clearance* 59.65; Estimated Glomerular Filt Rate 51 ml/min; Total Protein* 5.9 g/dL (6.0-8.3)
[2022-07-15 07:53] LABS: Alanine Aminotransferase* 16 U/L (4-50); Blood Urea Nitrogen* 35 mg/dL (7-30); Calcium* 8.3 mg/dL (8.4-10.6); Glucose* 113 mg/dL (60-115); Magnesium* 2.2 mg/dL (1.5-2.6); Phosphorus* 4.4 mg/dL (2.5-4.5)
[2022-07-15] MEDS: SENNOSIDES/DOCUSATE TABLET 1 TAB PO (09:08)
[2022-07-15] MEDS: SODIUM CHLORIDE 1 GM TABLET PO ×3 (09:08→18:12)
[2022-07-15] MEDS: AMLODIPINE 5 MG TABLET PO ×2 (09:08→12:43)
[2022-07-15] MEDS: METOPROLOL SUCCINATE (XL) 100 MG TAB 200 MG PO (09:08)
[2022-07-15] MEDS: SODIUM CHLORIDE 0.9 % (FLUSH) 10 ML SYRINGE 5 ML IVF (09:09)
[2022-07-15] MEDS: SODIUM BICARBONATE 650 MG TABLET PO ×3 (09:10→18:12)
[2022-07-15] MEDS: CALCIUM ACETATE 667 MG CAPSULE PO ×3 (09:10→18:12)
[2022-07-15] MEDS: IPRAT-ALBUT 0.5-2.5 MG/3 ML NEB 1 NEB IH ×2 (09:10→21:08)
[2022-07-15] MEDS: ACETAMINOPHEN 325 MG TABLET 975 MG PO ×3 (10:25→22:41)
--- NOTE | 2022-07-15 10:55 | PM.IMPN1 ---
Progress Note: A&P Assessment and plan (1) Lower extremity pain, right: Problem details: - suspect this is related to his pathologic fracture with intramedullary rodding, 03/2020 with failure of the hardware and fractured screws (not new) - Dr. Pinto spoke with [facility] upon admission, who indicated that this may need to be revised, but not acutely given recent chemotherapy - Ortho recommends bearing weight only without significant pain; likely he will be wheelchair-bound as a result with ambulating only for transfers - therapies aware and following - may require SNF upon discharge Status: Acute (2) Sepsis: Problem details: - elevated WBC and inflammatory markers, fever (last fever 4/5 am). Source unclear, NGTD on urine and blood cultures - WBC normalized 07/13 - continue Zosyn (07/10), renally dosed, will d/c on 07/15 given improvement in symptoms, WBC, inflammatory markers - TTE 07/12/22: Final Impressions: 1. Technically limited exam. 2. Normal left ventricular size, mildly increased wall thickness, hyperdynamic global systolic function, calculated EF of 70 %. 3. Echo contrast was administrered to enhance visualization of all left ventricular segments. 4. Right ventricular cavity size is normal, global systolic RV function is normal. 5. Normal left atrium size. 6. The aortic valve is calcified, mild stenosis and trivial regurgitation. The aortic valve peak velocity is 2.0 m/s, the peak gradient is 16 mmHg, and the mean gradient is 9 mmHg. The aortic valve area is 2.79 cm?? with a dimensionless index of 0.62. The stroke volume index is 46.0 ml/m??. 7. The mitral valve is sclerotic, trace mitral regurgitation. 8. Tricuspid valve is normal. 9. The aortic sinus is dilated with a maximal diameter of 4.3 cm. 10. No pericardial effusion. 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, follows with Oncology locally through [facility] Status: Acute (4) Hypertension: Problem details: - hypotensive on admission, BP began increasing on 07/13, so added back in home Amlodipine 5mg (holding Lisinopril 2/2 SARNA), continue home dose of Metoprolol - BP remains high 07/15; increase Amlodipine to 10mg and add Lasix once/day Status: Acute (5) Anhedonia: Problem details: - depression and decreased appetite noted - reviewed options for treatment with patient and daughter; after discussion, they'd like to trial Remeron (07/13) Status: Acute (6) Hypoalbuminemia: Problem details: - 2/2 acute illness on top of malignancy and recent chemo - likely contributing to edema - Nutrition following Status: Acute (7) Stage 3 chronic kidney disease: Problem details: - + SARAN, renally dosing medications and holding nephrotoxins, renal function back to baseline 07/14 - on scheduled calcium acetate for hyperphosphatemia - Reviewed case with [facility] (Dr. Mejia) on 07/13 - we discussed transfer at that time, has now been deferred given improvement Status: Acute (8) Hyperkalemia: Problem details: - noted on admission, resolved 07/10. History of this, associated with CKD. Holding lisinopril due to acute on chronic kidney disease, hypotension, and hyperkalemia Status: Acute (9) Anemia: Problem details: - normocytic, chronic. Likely combination of chronic disease and iatrogenic from chemotherapy Status: Acute Plan - per above - renally dosed Lovenox for prophylaxis - Dispo: Patient will be likely medically stable for discharge early next week; may require SNF placement given right lower extremity limitations Subjective Date Seen: 07/15/22 Interval history: Ed is feeling a little bit better each day, continues to have pain in his right lower extremity but this does seem to be improving. He is now hypertensive (hypotensive on admission), asymptomatic. Dyspnea has resolved, mood is stable. Exam Narrative: Exam Narrative: GEN: Alert and oriented, sitting comfortably in bedside chair HEENT: EOMIs bilaterally, no scleral icterus CV: RRR, soft systolic murmur without concerning features R: LCTA bilaterally without concerning wheezing, decreased bilateral bases L>R Ext: 3+ pitting edema bilateral lower extremities Skin: No concerning skin lesions or rashes on exposed skin Neuro: Nonfocal Psych: Appropriate Const: Vital Signs, click to edit/add: Vital Signs - 24 hr 07/14/22 11:00 07/14/22 15:00 07/14/22 15:00 Temperature 97.4 F L Pulse Rate Pulse Rate [Pulse Oximeter] 85 95 Respiratory Rate 18 18 18 Blood Pressure [Ri ght Arm] 176/103 H Pulse Oximetry 95 100 Oxygen Delivery Me thod Room Air Room Air Oxygen Flow Rate 07/14/22 15:00 07/14/22 15:00 07/14/22 19:00 Temperature 96.7 F L 97.4 F L Pulse Rate 93 Pulse Rate [Pulse Oximeter] 89 96 Respiratory Rate 18 18 Blood Pressure [Ri ght Arm] 180/103 H 172/101 H Pulse Oximetry 100 95 Oxygen Delivery Me thod Room Air Room Air Oxygen Flow Rate 07/14/22 23:23 07/14/22 23:26 07/14/22 23:30 Temperature 97.4 F L 98.4 F Pulse Rate 101 H Pulse Rate [Pulse Oximeter] 102 H Respiratory Rate 18 Blood Pressure [Ri ght Arm] 200/107 H Pulse Oximetry 93 Oxygen Delivery Me thod Room Air Oxygen Flow Rate 07/14/22 23:31 07/14/22 23:32 07/15/22 02:27 Temperature 97.5 F L Pulse Rate Pulse Rate [Pulse Oximeter] 102 H 84 Respiratory Rate 18 18 18 Blood Pressure [Ri ght Arm] 180/97 H Pulse Oximetry 93 94 Oxygen Delivery Ne thod Room Air Room Air Oxygen Flow Rate 0 0 07/15/22 07:23 07/15/22 08:57 07/15/22 08:57 Temperature 99.4 F Pulse Rate 88 Pulse Rate [Pulse Oximeter] 94 Respiratory Rate 18 Blood Pressure [Ri ght Arm] 185/110 H Pulse Oximetry 93 93 Oxygen Delivery Ne thod Room Air Room Air Oxygen Flow Rate Labs Labs: Laboratory Results - last 24 hr 07/14/22 07/15/22 18:04 06:40 WBC 6.38 RBC 2.76 L Hgb 8.9 L Hct 27.4 L MCV 99 MCH 32 MCHC 33 RDW Coeff of Rush 14.7 Plt Count 228 Neut % (Auto) 79.3 H Lymph % (Auto) 4.4 L Early % (Auto) 13.0 H Eos % (Auto) 0.5 Baso % (Auto) 0.3 Neut # (Auto) 5.10 Lymph # (Auto) 0.30 L Early # (Auto) 0.80 Eos # (Auto) 0.03 Baso # (Auto) 0.02 Sodium 133 L Potassium 3.8 Chloride 101 Carbon Dioxide 28 BUN 35 H Creatinine 1.6 H Estimated Creat Clear 59.65 Estimated GFR 51 Glucose 113 Calcium 8.3 L Ionized Calcium Kevin 1.16 Phosphorus 4.4 Magnesium 2.2 Total Bilirubin 0.4 AST 19 ALT 16 Alkaline Phosphatase 203 H Total Protein 5.9 L Albumin 3.0 L Stl C.difficile Tox PCR Negative St C. diff Tox Epid 027 PRESUMPTIVE NEGATIVE
[2022-07-15] MEDS: FUROSEMIDE 40 MG TABLET PO (12:43)
[2022-07-15] MEDS: OXYCODONE 5 MG TABLET PO (19:21)
[2022-07-15] MEDS: MIRTAZAPINE 15 MG TABLET 7.5 MG PO (21:08)
[2022-07-15] MEDS: ENOXAPARIN 30 MG/0.3ML INJ SUBCUT (21:09)
--- NOTE | 2022-07-15 23:16 | PC.NURSE ---
VSS AND AFEBRILE. UP WITH A1, WALKER AND GAIT BELT TO RECLINER AND BATHROOM. PATIENT REFUSED DINNER. LOOSE STOOL ONCE; SENNA AT HS HELD. RIGHT LEG PAIN CONTROLLED WITH SCHEDULED TYLENOL AND PRN OXYCODONE.
[2022-07-16] VITALS (8 sets, daily range): BP systolic 151–182; BP diastolic 95–103; PULSE 86–100; RESP 16–18; TEMP 36.2–36.8; O2SAT 91–96
[2022-07-16] MEDS: IPRAT-ALBUT 0.5-2.5 MG/3 ML NEB 1 NEB IH ×3 (02:14→20:54)
[2022-07-16] MEDS: HYDRALAZINE HCL 20 MG/ML inj 10 MG IVP (02:52)
[2022-07-16] MEDS: SODIUM CHLORIDE 0.9 % (FLUSH) 10 ML SYRINGE 5 ML IVF ×3 (02:53→20:55)
[2022-07-16] MEDS: ACETAMINOPHEN 325 MG TABLET 975 MG PO ×4 (03:49→22:51)
--- NOTE | 2022-07-16 06:53 | PC.NURSE ---
END OF SHIFT NOTE: PT PLEASANT AND COOPERATIVE. PT DENIES?CP, SOB, N/V. AMBULATES WITH WALKER AND A1. VSS ON RA; AFEBRILE; BP HYPERTENSIVE 180/107 AND 182/98. BED ALARM ON AND CALL LIGHT WITHIN PT?S REACH.TELE READS NSR.?
[2022-07-16 07:31] LABS: Basophils Absolute Auto 0.02 K/uL (0.00-0.30); Basophils Percent Auto 0.3 % (0.0-3.0); Eosinophils Absolute Auto 0.06 K/uL (0.00-0.50); Hematocrit 28.2 % (37.0-53.0); Immature Granulocytes Abs Auto 0.24 K/uL (0.00-0.30); Immature Granulocytes Pct Auto 3.9 %; Lymphocytes Percent Auto 6.5 % (20-44); Mean Corpuscular HGB Conc 32 gm/dL (32-36); Mean Corpuscular Hemoglobin 32 pg (26-34); Mean Corpuscular Volume 100 fL (80-100); Monocytes Percent Auto 14.4 % (0.0-11.0); Neutrophils Percent Auto 73.9 % (42.0-72.0); Platelet Count* 226 K/uL (140-440); RDW Coefficient of Variation % 14.6 % (11.5-15.5); Red Blood Count 2.82 m/uL (4.30-5.90); White Blood Count* 6.18 K/uL (4.50-11.00)
[2022-07-16 07:38] LABS: Slide Review Reflex No
[2022-07-16 07:43] LABS: Albumin* 2.9 g/dL (3.3-5.0); Chloride* 103 mmol/L (96-114)
[2022-07-16 07:44] LABS: Potassium* 3.6 mmol/L (3.6-5.1); Sodium* 134 mmol/L (135-149)
[2022-07-16 07:47] LABS: Alanine Aminotransferase* 16 U/L (4-50); Alkaline Phosphatase* 185 U/L (40-150); Aspartate Amino Transferase* 18 U/L (12-35); Bilirubin Total* 0.3 mg/dL (0.1-1.5); Blood Urea Nitrogen* 28 mg/dL (7-30); Calcium* 8.3 mg/dL (8.4-10.6); Carbon Dioxide* 29 mmol/L (20-32); Creatinine* 1.3 mg/dL (0.5-1.5); Est. Creatinine Clearance* 73.41; Estimated Glomerular Filt Rate 65 ml/min; Glucose* 114 mg/dL (60-115); Magnesium* 2.1 mg/dL (1.5-2.6); Total Protein* 5.9 g/dL (6.0-8.3)
[2022-07-16] MEDS: METOPROLOL SUCCINATE (XL) 100 MG TAB 200 MG PO (08:22)
[2022-07-16] MEDS: FUROSEMIDE 40 MG TABLET PO (08:23)
[2022-07-16] MEDS: CALCIUM ACETATE 667 MG CAPSULE PO (08:23)
[2022-07-16] MEDS: AMLODIPINE 5 MG TABLET 10 MG PO (08:25)
[2022-07-16] MEDS: SODIUM BICARBONATE 650 MG TABLET PO ×3 (08:33→17:30)
[2022-07-16] MEDS: SODIUM CHLORIDE 1 GM TABLET PO ×3 (08:33→17:29)
[2022-07-16] MEDS: dilTIAZem 180 MG CAP (CD) PO (10:21)
--- NOTE | 2022-07-16 13:42 | PM.IMPN1 ---
Progress Note: A&P Assessment and plan (1) Lower extremity pain, right: Problem details: - suspect this is related to his pathologic fracture with intramedullary rodding, 03/2020 with failure of the hardware and fractured screws (not new) - Dr. Pinto spoke with [facility] upon admission, who indicated that this may need to be revised, but not acutely given recent chemotherapy - Ortho recommends bearing weight only without significant pain; likely he will be wheelchair-bound as a result with ambulating only for transfers - therapies aware and following, significant improvement in symptoms noted on 07/16 Status: Acute (2) Sepsis: Problem details: - elevated WBC and inflammatory markers, fever (last fever 4/5 am). Source unclear, NGTD on urine and blood cultures - WBC normalized 07/13 - treated with Zosyn (07/10-07/15) - TTE 07/12/22: Final Impressions: 1. Technically limited exam. 2. Normal left ventricular size, mildly increased wall thickness, hyperdynamic global systolic function, calculated EF of 70 %. 3. Echo contrast was administrered to enhance visualization of all left ventricular segments. 4. Right ventricular cavity size is normal, global systolic RV function is normal. 5. Normal left atrium size. 6. The aortic valve is calcified, mild stenosis and trivial regurgitation. The aortic valve peak velocity is 2.0 m/s, the peak gradient is 16 mmHg, and the mean gradient is 9 mmHg. The aortic valve area is 2.79 cm?? with a dimensionless index of 0.62. The stroke volume index is 46.0 ml/m??. 7. The mitral valve is sclerotic, trace mitral regurgitation. 8. Tricuspid valve is normal. 9. The aortic sinus is dilated with a maximal diameter of 4.3 cm. 10. No pericardial effusion. 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, follows with Oncology locally through [facility] Status: Acute (4) Hypertension: Problem details: - hypotensive on admission, BP began increasing on 07/13, so added back in home Amlodipine 5mg (holding Lisinopril 2/2 SARAN), continue home dose of Metoprolol - 07/15: increased Amlodipine to 10mg, restarted home Diltiazem, added Lasix once/day - holding Lisinopril given SARAN Status: Acute (5) Anhedonia: Problem details: - depression and decreased appetite noted - reviewed options for treatment with patient and daughter; after discussion, they'd like to trial Remeron (07/13) Status: Acute (6) Hypoalbuminemia: Problem details: - 2/2 acute illness on top of malignancy and recent chemo - likely contributing to edema - Nutrition following Status: Acute (7) Stage 3 chronic kidney disease: Problem details: - + SARAN, renally dosing medications and holding nephrotoxins, renal function back to baseline 07/14 - on scheduled calcium acetate for hyperphosphatemia - Reviewed case with [facility] (Dr. Mejia) on 07/13 - we discussed transfer at that time, now deferred given improvement Status: Acute (8) Hyperkalemia: Problem details: - noted on admission, resolved 07/10. History of this, associated with CKD. Holding lisinopril due to acute on chronic kidney disease, hypotension, and hyperkalemia Status: Acute (9) Anemia: Problem details: - normocytic, chronic. Likely combination of chronic disease and iatrogenic from chemotherapy Status: Acute Plan - per above - Oncology f/u today - likely home tomorrow with and daughter Subjective Date Seen: 07/16/22 Interval history: Patient has noted significant improvement in symptoms over the past 24 hours. He was able to walk up steps with therapy, and right lower extremity pain has significantly improved. He has no concerns for hospitalist team. He is seeing Oncology this afternoon, is hopeful that he will be able to discharge home given improvement in symptoms. Exam Narrative: Exam Narrative: GEN: Alert and oriented, appears bright this morning HEENT: EOMIs bilaterally, no scleral icterus CV: RRR, No concerning murmurs, rubs, or gallops R: LCTA bilaterally without concerning wheezing Ext: 3+ edema bilateral lower extremities Skin: No concerning skin lesions or rashes on exposed skin Psych: Appropriate, mood significantly improved from previous Const: Vital Signs, click to edit/add: Vital Signs - 24 hr 07/15/22 16:35 07/15/22 15:45 07/15/22 15:45 Temperature Pulse Rate 96 Pulse Rate [Pulse Oximeter] 89 Respiratory Rate 18 16 Blood Pressure [Ri ght Arm] Pulse Oximetry 94 Oxygen Delivery Me thod Room Air Oxygen Flow Rate 0 07/15/22 15:45 07/15/22 19:30 07/15/22 23:00 Temperature 97.9 F 98 F Pulse Rate 86 Pulse Rate [Pulse Oximeter] 96 93 Respiratory Rate 18 18 Blood Pressure [Ri ght Arm] 173/106 H 161/95 H Pulse Oximetry 94 94 Oxygen Delivery Me thod Room Air Room Air Oxygen Flow Rate 0 0 07/15/22 23:00 07/15/22 23:00 07/15/22 23:00 Temperature 97.4 F L Pulse Rate Pulse Rate [Pulse Oximeter] 89 89 Respiratory Rate 16 16 16 Blood Pressure [Ri ght Arm] 180/107 H Pulse Oximetry 92 92 Oxygen Delivery Me thod Room Air Room Air Oxygen Flow Rate 0 0 07/16/22 02:24 07/16/22 07:00 07/16/22 07:00 Temperature 97.6 F 97.2 F L Pulse Rate Pulse Rate [Pulse Oximeter] 88 87 Respiratory Rate 18 16 Blood Pressure [Ri ght Arm] 182/98 H 170/100 H Pulse Oximetry 91 95 95 Oxygen Delivery Me thod Room Air Room Air Room Air Oxygen Flow Rate 0 07/16/22 07:15 07/16/22 11:00 Temperature 97.9 F Pulse Rate 89 Pulse Rate [Pulse Oximeter] 100 Respiratory Rate 18 Blood Pressure [Ri ght Arm] 151/95 H Pulse Oximetry 96 Oxygen Delivery Me thod Room Air Oxygen Flow Rate Labs Labs: Laboratory Results - last 24 hr 07/16/22 07:18 WBC 6.18 RBC 2.82 L Hgb 9.0 L Hct 28.2 L MCV 100 MCH 32 MCHC 32 RDW Coeff of Rush 14.6 Plt Count 226 Neut % (Auto) 73.9 H Lymph % (Auto) 6.5 L Kinney % (Auto) 14.4 H Eos % (Auto) 1.0 Baso % (Auto) 0.3 Neut # (Auto) 4.60 Lymph # (Auto) 0.40 L Kinney # (Auto) 0.90 Eos # (Auto) 0.06 Baso # (Auto) 0.02 Sodium 134 L Potassium 3.6 Chloride 103 Carbon Dioxide 29 BUN 28 Creatinine 1.3 Estimated Creat Clear 73.41 Estimated GFR 65 Glucose 114 Calcium 8.3 L Magnesium 2.1 Total Bilirubin 0.3 AST 18 ALT 16 Alkaline Phosphatase 185 H Total Protein 5.9 L Albumin 2.9 L
--- NOTE | 2022-07-16 15:26 | PC.NURSE ---
Patient alert and oriented x 3. Pain to right lower extremity managed with rest and tylenol. Transfers with gait belt, walker and assist x 1. Damico catheter discontinued this shift, patient able to void x 3 after removal, denies pain or burning with urination. Appetite fair, ate 50% of breakfast and refused lunch due to low appetite. Skin intact. PIV to left AC saline locked. Denies any shortness of breath. Lung sounds clear.
[2022-07-16] MEDS: OXYCODONE 5 MG TABLET PO ×2 (17:29→22:06)
[2022-07-16] MEDS: ENOXAPARIN 30 MG/0.3ML INJ SUBCUT (20:54)
[2022-07-16] MEDS: MIRTAZAPINE 15 MG TABLET 7.5 MG PO (20:54)
[2022-07-17 02:35] VITALS: BP 184/103; PULSE 89; RESP 16; TEMP 36.9; O2SAT 91
[2022-07-17] MEDS: IPRAT-ALBUT 0.5-2.5 MG/3 ML NEB 1 NEB IH ×2 (02:41→08:46)
[2022-07-17] MEDS: HYDRALAZINE HCL 20 MG/ML inj 10 MG IVP ×2 (02:41→08:45)
[2022-07-17] MEDS: SODIUM CHLORIDE 0.9 % (FLUSH) 10 ML SYRINGE 5 ML IVF ×2 (02:42→08:47)
[2022-07-17] MEDS: ACETAMINOPHEN 325 MG TABLET 975 MG PO ×2 (04:31→10:48)
--- NOTE | 2022-07-17 05:03 | PC.NURSE ---
END OF SHIFT NOTE: PT PLEASANT AND COOPERATIVE. A&O x4. DENIES CP, SOB, N/V. AMBULATES WITH WALKER, A1. LSCTA. VSS ON RA; BP HYPERTENSIVE 172/103, 166/99, 183/103; PRN HYDRALAZINE ADMINISTERED FOR HTN. AFEBRILE. CALL LIGHT IS WITHIN PT?S REACH.?
[2022-07-17 07:00] VITALS: BP 191/106; PULSE 76; PULSE 82; RESP 16; TEMP 36.6; O2SAT 93
[2022-07-17 07:14] LABS: Basophils Absolute Auto 0.04 K/uL (0.00-0.30); Basophils Percent Auto 0.6 % (0.0-3.0); Eosinophils Absolute Auto 0.07 K/uL (0.00-0.50); Eosinophils Percent Auto 1.1 % (0.0-7.0); Hemoglobin* 8.9 gm/dL (13.5-17.5); Immature Granulocytes Abs Auto 0.46 K/uL (0.00-0.30); Immature Granulocytes Pct Auto 6.9 %; Lymphocytes Percent Auto 6.6 % (20-44); Mean Corpuscular HGB Conc 32 gm/dL (32-36); Mean Corpuscular Hemoglobin 32 pg (26-34); Mean Corpuscular Volume 101 fL (80-100); Monocytes Percent Auto 11.7 % (0.0-11.0); Neutrophils Percent Auto 73.1 % (42.0-72.0); Platelet Count* 238 K/uL (140-440); RDW Coefficient of Variation % 14.5 % (11.5-15.5); Red Blood Count 2.77 m/uL (4.30-5.90); White Blood Count* 6.66 K/uL (4.50-11.00)
[2022-07-17 07:15] LABS: Slide Review Reflex No
[2022-07-17 07:20] LABS: Albumin* 2.8 g/dL (3.3-5.0); Chloride* 103 mmol/L (96-114)
[2022-07-17 07:21] LABS: Potassium* 3.3 mmol/L (3.6-5.1); Sodium* 135 mmol/L (135-149)
[2022-07-17 07:23] LABS: Aspartate Amino Transferase* 19 U/L (12-35); Bilirubin Total* 0.2 mg/dL (0.1-1.5); Carbon Dioxide* 30 mmol/L (20-32); Creatinine* 1.2 mg/dL (0.5-1.5); Est. Creatinine Clearance* 79.53; Estimated Glomerular Filt Rate 72 ml/min; Total Protein* 5.7 g/dL (6.0-8.3)
[2022-07-17 07:24] LABS: Alanine Aminotransferase* 15 U/L (4-50); Alkaline Phosphatase* 178 U/L (40-150); Blood Urea Nitrogen* 22 mg/dL (7-30); Calcium* 8.2 mg/dL (8.4-10.6); Glucose* 113 mg/dL (60-115)
[2022-07-17] MEDS: SODIUM CHLORIDE 1 GM TABLET PO ×2 (07:41→11:35)
[2022-07-17] MEDS: SODIUM BICARBONATE 650 MG TABLET PO ×2 (07:41→11:34)
[2022-07-17] MEDS: FUROSEMIDE 40 MG TABLET PO (07:41)
[2022-07-17] MEDS: dilTIAZem 180 MG CAP (CD) PO (08:45)
[2022-07-17] MEDS: METOPROLOL SUCCINATE (XL) 100 MG TAB 200 MG PO (08:45)
[2022-07-17] MEDS: AMLODIPINE 5 MG TABLET 10 MG PO (08:45)
--- NOTE | 2022-07-17 08:49 | PM.DS1 ---
DS: Providers Provider Date Seen: 07/17/22 Date of admission: 07/09/22 19:15 Primary care physician: Eliezer Camacho MD Admitting Clinician: Kurt Pinto MD Consults: PT, OT, Nutrition, SW, RT Attending Physician on discharge: Margot Knott MD Date of Discharge: 07/17/22 DS: Diagnosis Discharge Diagnosis (1) Sepsis: Status: Acute Problem details: - elevated WBC and inflammatory markers, fever noted 4/5 am. Source unclear, NGTD on urine and blood cultures - WBC normalized 07/13 - treated with Zosyn (07/10-07/15) - TTE 07/12/22: Final Impressions: 1. Technically limited exam. 2. Normal left ventricular size, mildly increased wall thickness, hyperdynamic global systolic function, calculated EF of 70 %. 3. Echo contrast was administrered to enhance visualization of all left ventricular segments. 4. Right ventricular cavity size is normal, global systolic RV function is normal. 5. Normal left atrium size. 6. The aortic valve is calcified, mild stenosis and trivial regurgitation. The aortic valve peak velocity is 2.0 m/s, the peak gradient is 16 mmHg, and the mean gradient is 9 mmHg. The aortic valve area is 2.79 cm?? with a dimensionless index of 0.62. The stroke volume index is 46.0 ml/m??. 7. The mitral valve is sclerotic, trace mitral regurgitation. 8. Tricuspid valve is normal. 9. The aortic sinus is dilated with a maximal diameter of 4.3 cm. 10. No pericardial effusion. (2) Stage 3 chronic kidney disease: Status: Acute Problem details: - + SARAN, renally dosing medications and holding nephrotoxins, renal function back to baseline 07/14 - was treated with course of calcium acetate for hyperphosphatemia - Reviewed case with [facility] (Dr. Mejia) on 07/13 - we discussed transfer at that time, now deferred given improvement (3) Acute renal insufficiency: Status: Acute Problem details: - creatinine peaked at 2.8, back to 1.2 upon discharge (4) Anhedonia: Status: Acute Problem details: - depression and decreased appetite noted - reviewed options for treatment with patient and daughter; after discussion, they'd like to trial Remeron (initiated 07/13) (5) Hypoalbuminemia: Status: Acute Problem details: - 2/2 acute illness on top of malignancy and recent chemo - likely contributing to edema - Nutrition following (6) Hyperkalemia: Status: Acute Problem details: - noted on admission, resolved 07/10. History of this, associated with CKD. Holding lisinopril due to acute on chronic kidney disease, hypotension, and hyperkalemia (7) Leukocytosis: Status: Acute Problem details: - resolved during stay (8) Lower extremity pain, right: Status: Acute Problem details: - suspect this is related to his pathologic fracture with intramedullary rodding, 03/2020 with failure of the hardware and fractured screws (not new) - Dr. Pinto spoke with [facility] upon admission 07/09, who indicated that this may need to be revised, but not acutely given recent chemotherapy - Ortho recommends bearing weight only without significant pain - therapies aware and following, significant improvement in symptoms noted on 07/16 and patient appropriate for d/c home with family on 07/17 (9) Lung cancer metastatic to bone: Status: Acute Problem details: - R femur (10) Acute hyponatremia: Status: Resolved Problem details: - 2/2 chemo and therapy induced nausea, vomiting, diarrhea, anorexia, in addition to malignancy - treated with IVFs, oral fluid restriction, sodium supplementation, has improved appropriately (11) Hypocalcemia: Status: Acute Problem details: - history of HYPERcalcemia, currently low to low-normal when corrected for hypoalbuminemia, follow and treat prn (12) Hypertension: Status: Acute Problem details: - hypotensive on admission 07/09, BP began increasing on 07/13 - BP management: Increased Amlodipine to 10mg, increased Diltiazem from 120-->240mg, continued home Metoprolol, added Lasix - held Lisinopril during stay and upon discharge given SARAN (13) Stage IV squamous cell carcinoma of lung: Status: Acute Problem details: - metastatic to bone, follows with Oncology locally through [facility] (14) Anemia: Status: Acute Problem details: - normocytic, chronic. Likely combination of chronic disease and iatrogenic from chemotherapy DS: Summary Hospital Course Hospital Course: Ed is a very pleasant 52-year-old male with history of metastatic non-small cell lung carcinoma who presented to the hospital with intractable right lower extremity pain. Patient has a known history of pathologic fracture of the right femur, s/p rodding at [facility] in 2019. He had been ambulating without any pain and had no injury, but noted acute onset of pain approximately 4 days prior to admission. Workup revealed no source of right thigh pain, imaging stable. [facility] was consulted by phone, will see patient as an outpatient when he is not actively undergoing chemotherapy if pain persists. On hospital day 1, patient was noted to have a fever, hypotension, confusion. He was treated as presumed sepsis with Zosyn and IV fluid resuscitation. Imaging, blood cultures, urine cultures all negative. Blood pressure, mental status, leukocytosis all improved during stay and patient remained afebrile. Patient also noted to have SARAN and resultant hyperphosphatemia; nephrotoxins were held in IV fluids administered. [facility] was consulted and transfer was ultimately deferred as patient's renal function improved. Creatinine peaked at 2.8, 1.2 on discharge. Ed's BP increased throughout stay, was actually quite hypertensive prior to discharge. His lisinopril was held secondary to SARAN and we continued home metoprolol dosing; both home dose of amlodipine and diltiazem increased upon discharge was also started on Lasix once per day. Further blood pressure management to be determined at outpatient followup with PCP. Other notable findings above. Patient was improved and medically appropriate for discharge home daughter and on 07/17; recommend close PCP and Oncology follow-up; BMP next week. Status at Discharge Overall status at discharge: patient is progressing back to baseline Time Spent with Patient Time attestation: Total time spent providing and/or coordinating discharge services: Time spent: Greater than 30 minutes Specific discharge activities: Medication management, family updates, care coordination Exam Narrative: Exam Narrative: GEN: Alert and oriented, nontoxic HEENT: EOMIs bilaterally CV: RRR, No concerning murmurs R: LCTA bilaterally without concerning wheezing, air movement adequate Ext: wwp, 3+ edema bilateral lower extremities Skin: No concerning skin lesions or rashes on exposed skin Neuro: No focal deficits Const: Vital Signs, click to edit/add: Vital Signs - 24 hr 07/16/22 11:00 07/16/22 15:00 07/16/22 15:00 Temperature 97.9 F Pulse Rate Pulse Rate [Pulse Oximeter] 100 90 Respiratory Rate 18 18 18 Blood Pressure [Ri ght Arm] 151/95 H Pulse Oximetry 96 95 Oxygen Delivery Me thod Room Air Room Air Oxygen Flow Rate 0 07/16/22 15:00 07/16/22 15:00 07/16/22 19:50 Temperature 97.4 F L 98.2 F Pulse Rate 86 Pulse Rate [Pulse Oximeter] 90 93 Respiratory Rate 18 16 Blood Pressure [Ri ght Arm] 179/97 H 172/103 H Pulse Oximetry 95 94 Oxygen Delivery Me thod Room Air Room Air Oxygen Flow Rate 0 0 07/16/22 19:50 07/16/22 20:01 07/16/22 20:01 Temperature Pulse Rate 89 Pulse Rate [Pulse Oximeter] 93 Respiratory Rate 16 16 Blood Pressure [Ri ght Arm] Pulse Oximetry 94 Oxygen Delivery Me thod Room Air Oxygen Flow Rate 0 07/16/22 23:00 07/16/22 23:00 07/17/22 02:35 Temperature 97.9 F 98.5 F Pulse Rate 88 Pulse Rate [Pulse Oximeter] 91 89 Respiratory Rate 18 16 Blood Pressure [Ri ght Arm] 166/99 H 184/103 H Pulse Oximetry 91 91 Oxygen Delivery Ga thod Room Air Room Air Oxygen Flow Rate 0 07/17/22 07:00 07/17/22 07:00 07/17/22 07:00 Temperature 97.8 F Pulse Rate Pulse Rate [Pulse Oximeter] 82 82 Respiratory Rate 16 16 16 Blood Pressure [Ri ght Arm] 191/106 H Pulse Oximetry 93 93 Oxygen Delivery Me thod Room Air Room Air Oxygen Flow Rate DS: Data Data Completed and Pending Labs on day of discharge: Labs from last 24 hours 07/17/22 06:34 WBC 6.66 RBC 2.77 L Hgb 8.9 L Hct 28.0 L MCV 101 H MCH 32 MCHC 32 RDW Coeff of [place] 14.5 Plt Count 238 Neut % (Auto) 73.1 H Lymph % (Auto) 6.6 L [place] % (Auto) 11.7 H Eos % (Auto) 1.1 Baso % (Auto) 0.6 Neut # (Auto) 4.90 Lymph # (Auto) 0.40 L [place] # (Auto) 0.80 Eos # (Auto) 0.07 Baso # (Auto) 0.04 Sodium 135 Potassium 3.3 L Chloride 103 Carbon Dioxide 30 BUN 22 Creatinine 1.2 Estimated Creat Clear 79.53 Estimated GFR 72 Glucose 113 Calcium 8.2 L Total Bilirubin 0.2 AST 19 ALT 15 Alkaline Phosphatase 178 H Total Protein 5.7 L Albumin 2.8 L Discharge Plan Discharge Disposition: Home, Self-Care Date of Admission: 07/09/22 19:15 Attending Provider on Discharge: Margot Knott Primary Care Provider: Eliezer Camacho Condition: Stable Anticipated Discharge Date/Time: 07/17/22 08:22 Discharge Medications: New furosemide 40 mg Tablet 40 mg PO DAILY@0800 Qty: 30 0RF Rx Instructions: daily for one week, then daily prn for edema amlodipine 5 mg Tablet 10 mg PO DAILY Qty: 60 0RF Rx Instructions: please note dose increase mirtazapine 15 mg Tablet 7.5 mg PO HS Qty: 30 0RF oxycodone 5 mg Tablet 5 mg PO Q6H PRNQty: 20 0RF sodium chloride 1,000 mg Tablet,Soluble 1,000 mg PO TIDWM Qty: 30 0RF Rx Instructions: for hyponatremia diltiazem HCl 240 mg capsule,extended release 24hr 240 mg PO QAM Qty: 30 2RF Rx Instructions: please note dose increase Continued cholecalciferol (vitamin D3) 50 mcg (2,000 unit) tablet 50 mcg PO DAILY Hold Instructions: Doctor's Order cinnamon bark 500 mg capsule 500 mg PO DAILY polyethylene glycol 3350 17 gram/dose powder 17 g PO DAILY PRN ibuprofen 200 mg tablet 800 mg PO DAILY PRN ferrous gluconate 240 mg (27 mg iron) tablet 130 mg PO DAILY triamcinolone acetonide 0.1 % cream 1 applic topical BID PRN (Reason: itching) Qty: 30 2RF acetaminophen [Tylenol Extra Strength] 500 mg tablet 1,000 mg PO QID PRN metoprolol succinate 200 mg tablet extended release 24 hr 200 mg PO DAILY gabapentin 300 mg capsule 300 mg PO DAILY ondansetron HCl 4 mg tablet 4 mg PO Q6H PRN (Reason: nausea) Qty: 40 2RF Rx Instructions: Take for nausea not controlled with compazine (prochlorperazine). dexamethasone 4 mg tablet 8 mg PO BID Qty: 40 1RF Rx Instructions: Take 2 tabs (8mg) twice per day for 3 days, starting the day before chemo. Take with food. lorazepam 0.5 mg tablet 0.5 mg PO Q8H PRN (Reason: insomnia after chemo, uncontrolled nausea) Qty: 30 0RF Rx Instructions: Take 1 tab every 8 hours if needed for insomnia after chemo, or nausea not controlled with zofran (ondansetron). Use with caution with other sedating meds. Discontinued lisinopril 20 mg tablet 20 mg PO DAILY amlodipine 5 mg tablet 5 mg PO DAILY diltiazem HCl [DILT-XR] 180 mg capsule,ext.rel 24h degradable 180 mg PO DAILY Discharge Orders: Discharge Order (Routine); Ordered 07/17/22 Ordered By: Margot Knott Patient Education: Diltiazem (By mouth), Furosemide (By mouth), Oxycodone, Rapid Release (By mouth), Amlodipine (By mouth), Mirtazapine (By mouth), Sodium Chloride (By mouth), Hyponatremia (DC), Leg Pain (ED) Additional Instructions: MEDICATION CHANGES: - increase Diltiazem to 240mg (new Rx at pharmacy) - increase Amlodipine from 5-->10mg (new Rx at pharmacy) - Lasix 40mg (diuretic), use daily for one week, then as needed for edema (at pharmacy) - continue Mirtazepine at night (for mood/appetite) (at pharmacy) - continue sodium chloride tabs with meals for low sodium (at pharmacy) - STOP Lisinopril Activity Level: No strenuous activity, Light activity and Weight Bearing as Tolerated Discharge Diet: High Protein/High Calorie Follow Up Appointments: Eliezer Camacho MD [Primary Care Provider] - 07/23/22 2:15 pm (7-10 days for hospital f/u, BP check, leg pain check) Annika Holland APRN [Advanced Practice Nurse] - (oncology f/u 1 week with BMP) Forms: [employer] Info Instructions
[2022-07-17 09:13] VITALS: BP 104/66; PULSE 88; RESP 16; TEMP 36.6
[2022-07-17 11:00] VITALS: BP 187/109; PULSE 97; RESP 18; TEMP 36.8; O2SAT 93
--- NOTE | 2022-07-17 12:04 | PC.NURSE ---
Discharge: Patient pleasant and cooperative. Patient hypertensive, but stable, lungs clear, BS WNL, IV removed, catheter intact. Hydralizine given once for BP >180. Patient SBA with walker. Patient rates pain at most 4/10, scheduled tylenol given. Patient did not have a meal this morning. Patient has pitting edema in LE +3 and hand +2. Patient signed discharge form and belongings sheet, patient had no further question. Patient left the floor by wheelchair at 1158.
== END 2022-07-17 11:58 | disposition home or self-care (01) | DRG 720 ==
LOC: ED 15:24 → MEDSURG 16:54
PROVIDERS: Family Medicine; Hospitalist; Admitting Provider Family Medicine; Emergency Provider Family Medicine; PCP Family Medicine; Visit Provider Family Medicine
DX: A41.9 Sepsis, unspecified organism (principal); T84.12 Displacement of internal fixation device of bones of limb; M79.651 Pain in right thigh; M84.551 Pathological fracture in neoplastic disease, right femur; N17.9 Acute kidney failure, unspecified; E87.1 Hypo-osmolality and hyponatremia; E87.5 Hyperkalemia; E83.51 Hypocalcemia; I12.9 Hypertensive chronic kidney disease with stage 1 through stage 4 chronic kidney disease, or unspecified chronic kidney disease; N18.30 Chronic kidney disease, stage 3 unspecified; C78.02 Secondary malignant neoplasm of left lung; C79.70 Secondary malignant neoplasm of unspecified adrenal gland; C79.51 Secondary malignant neoplasm of bone; R41.82 Altered mental status, unspecified; E88.09 Other disorders of plasma-protein metabolism, not elsewhere classified; R45.84 Anhedonia; D64.9 Anemia, unspecified
CPT/HCPCS: 36415; 70450; 71045; 71250; 71260; 72170; 72192; 73552; 74177; 76775; 80048; 80053; 81003; 81015; 82306; 82330; 82803; 83605; 83735; 84100; 84145; 84295; 85025; 85379; 85651; 86140; 87040; 87081; 87086; 87493; 87631; 93005; 93306; 93971; 94640; 97110; 97116; 97163; 97165; 97530; 97535; 99284; 99285; A9270; J0360; J0610; J1650; J1940; J2270; J2543; J7030; J7070; J7120; P9047; Q9967

== ENCOUNTER 2022-08-28 09:00 | Outpatient (RCR) | payer BC, SELFPAY ==
--- NOTE | 2022-06-06 11:20 | ONC.NURNOTE ---
Pre chemotherapy planning -patient has compazine at home with 2 refills -needs RX for ondansetron- has 4 tabs left at home -discussed onpro verses neulasta injection the next day- patient would like to try the onpro -instructed on dexamethasone 4 mg BID starting SaturdayJune 18, Saturday and Sat- patient correctly stated medication schedule in teach back -discussed urgent need to have hypertension addressed by Dr Mckenzie - patient has not called to make an appt yet- confirmed he will do that - the cyramza may also cause hypertension -next appts discussed with Dr Norris, virtual the day of chemo or inperson the day prior to chemo- patient requests an in person appt Next steps: refill ondansetron patient requests that we follow up with Dr Maria about retesting gene profile
--- NOTE | 2022-06-12 13:50 | ONC.NURNOTE ---
Oncology records from 02/2022 to present faxed to [employer] disability benefits. #[phone].
--- NOTE | 2022-06-15 15:18 | ONC.NURNOTE ---
Patient was called and states he plans on meeting with [facility] on SaturdayJune 19 regarding a study and wants to stay on schedule and will call us after appointment to let us know the plan. Pharmacy updated on plan and chemo on hold until patient calls with definitive plan.
--- NOTE | 2022-06-20 08:50 | ONC.NURNOTE ---
Addendum entered by Sharmila Chamberlain RN 06/20/22 08:58: Error SaturdayJune 26 Addendum entered by Sharmila Chamberlain RN 06/20/22 08:57: Pharmacy informed of patient starting on Saturdayjune 27 Original Note: [employer] called and talked to patient and at this time he is not qualifying for study in [place] due to his creatinine. He will start chemo in [place] and prefers to start on Saturday. Reminded him of the importance of getting his blood pressure under control due to the biggest side effect of Cyramza is hypertension and he states It is fine at home last night it was 124/78. [employer] asked him to take it 3-4 times a day and document it-making sure it's at different times.
[2022-06-26 10:04] LABS: Hematocrit 33.1 % (37.0-53.0); Hemoglobin* 11.2 gm/dL (13.5-17.5); Immature Granulocytes Pct Auto 1.2 %; Lymphocytes Percent Auto 2.9 % (20-44); Mean Corpuscular HGB Conc 34 gm/dL (32-36); Mean Corpuscular Hemoglobin 33 pg (26-34); Mean Corpuscular Volume 97 fL (80-100); Monocytes Percent Auto 5.7 % (0.0-11.0); Neutrophils Percent Auto 90.2 % (42.0-72.0); Platelet Count* 317 K/uL (140-440); RDW Coefficient of Variation % 13.6 % (11.5-15.5); Red Blood Count 3.42 m/uL (4.30-5.90); White Blood Count* 11.66 K/uL (4.50-11.00)
[2022-06-26 10:07] VITALS: BP 137/84; RESP 16; TEMP 35.8; O2SAT 97
[2022-06-26 10:08] LABS: Slide Review Reflex No
[2022-06-26 10:22] LABS: Albumin* 4.2 g/dL (3.3-5.0)
[2022-06-26 10:23] LABS: Chloride* 96 mmol/L (96-114); Potassium* 5.9 mmol/L (3.6-5.1); Sodium* 129 mmol/L (135-149)
[2022-06-26 10:25] LABS: Bilirubin Total* 0.4 mg/dL (0.1-1.5); Estimated Glomerular Filt Rate 39 ml/min
[2022-06-26 10:26] LABS: Alanine Aminotransferase* 31 U/L (4-50); Alkaline Phosphatase* 100 U/L (40-150); Aspartate Amino Transferase* 24 U/L (12-35); Blood Urea Nitrogen* 44 mg/dL (7-30); Calcium* 11.1 mg/dL (8.4-10.6); Carbon Dioxide* 26 mmol/L (20-32); Glucose* 249 mg/dL (60-115); Total Protein* 7.8 g/dL (6.0-8.3)
[2022-06-26] MEDS: 0.9 % SODIUM CHLORIDE 1000 ml 1,000 ML 750 ML IV (11:16)
[2022-06-26 12:03] LABS: Ionized Calcium* 1.42 mmol/L (1.11-1.30)
--- NOTE | 2022-06-26 13:49 | ONC.NURNOTE ---
Pt here today for C1D1 Cyramza/Taxotere; he is taking his oral Dex at home as prescribed. Upon review of labs and trend from labs 2 weeks ago, pt's increasingly hyponatremic (Na 129), hyperkalemic (K 5.9), hypercalcemic (Ca 11.1) and has elevated Creatinine 2.0. Pt reports he has adequate PO intake and oral hydration; he denies swelling in extremities and does not use caffeine or alcohol. Reviewed with Annika Wallace APRN. Hold chemo today; give 1L NS IV over 90 min. Pt to hold Calcium Carbonate and Vitamin D that he takes at home and return to [facility] tomorrow for recheck of BMP/Ca. Pt also brings in home blood pressure recordings, ranging systolics 120's-170's and diastolics 60's-100's. Pt's PCP is monitoring/managing BP; recent addition of Amlodipine. Chemotherapy teaching completed, reviewing Cyramza, Taxotere and Neulasta On-Pro side administration, side effects, risk of hypersensitivity reaction and possible hyper/hypotension specific to these medications. Questions answered, consents signed, new pt binder given and reviewed. Pt has Zofran and Lorazepam at home for antiemetics PRN. He has not had much nausea with previous chemo regimens.
[2022-06-27 10:02] VITALS: BP 134/77; PULSE 72; RESP 16; TEMP 36.2; O2SAT 96
[2022-06-27 10:09] LABS: Chloride* 102 mmol/L (96-114); Potassium* 5.5 mmol/L (3.6-5.1); Sodium* 133 mmol/L (135-149)
[2022-06-27 10:12] LABS: Blood Urea Nitrogen* 50 mg/dL (7-30); Carbon Dioxide* 24 mmol/L (20-32); Creatinine* 1.7 mg/dL (0.5-1.5); Estimated Glomerular Filt Rate 47 ml/min; Glucose* 179 mg/dL (60-115)
[2022-06-27 10:13] LABS: Calcium* 9.9 mg/dL (8.4-10.6)
[2022-06-27] MEDS: GRANISETRON 1 MG/ML inj IVP (11:27)
[2022-06-27] MEDS: diphenhydrAMINE 50 MG in 0.9 % SODIUM CHLORIDE 100 ml 100 ML 404 MG IVPB (11:48)
[2022-06-27] MEDS: dexAMETHasone 10 MG in 0.9 % SODIUM CHLORIDE 100 ml 100 ML 404 MG IVPB (12:09)
[2022-06-28 00:20] LABS: Cortisol, Serum 2.1 ug/dL
--- NOTE | 2022-06-28 08:42 | ONC.NURNOTE ---
Called patiet regarding first chemotherapy yesterday. He has been treated in the past and notes that he is still in the honeymoon phase, meaning he is currently feeling well outside of not sleeping well due to steroids given yesterday. He is scheduled for fluids tomorrow, but will call if anything comes up prior to this appointment.
--- NOTE | 2022-06-29 16:03 | ONC.NURNOTE ---
Pt here today for IVF following C1D1 Cyramza/Taxotere Wed 06/27 to aid in renal clearance. Pt's weight increased #5.5 lb; no edema or ankle swelling. Pt feels well; completed oral dex around chemo day. He is drinking 64 oz/day, including 2 packets of Liquid IV electrolyte powder. Reviewed with Annika Wallace APRN. Determined IVF not needed today d/t sufficient oral hydration and increased weight. Return to [facility] Mon 08/02 to recheck labs/poss IVF.
[2022-07-02 13:50] LABS: Basophils Percent Auto 0.2 % (0.0-3.0); Eosinophils Percent Auto 0.5 % (0.0-7.0); Hematocrit 33.7 % (37.0-53.0); Hemoglobin* 10.7 gm/dL (13.5-17.5); Immature Granulocytes Pct Auto 1.1 %; Lymphocytes Percent Auto 4.3 % (20-44); Mean Corpuscular HGB Conc 32 gm/dL (32-36); Mean Corpuscular Hemoglobin 32 pg (26-34); Mean Corpuscular Volume 101 fL (80-100); Monocytes Percent Auto 6.6 % (0.0-11.0); Neutrophils Percent Auto 87.3 % (42.0-72.0); Platelet Count* 146 K/uL (140-440); RDW Coefficient of Variation % 13.8 % (11.5-15.5); Red Blood Count 3.33 m/uL (4.30-5.90); White Blood Count* 4.38 K/uL (4.50-11.00)
[2022-07-02 13:52] LABS: Slide Review Reflex Yes
[2022-07-02 14:10] LABS: Slide Review Acceptable Review (Acceptable)
[2022-07-02 14:44] LABS: Albumin* 3.1 g/dL (3.3-5.0); Chloride* 101 mmol/L (96-114); Potassium* 5.7 mmol/L (3.6-5.1); Sodium* 131 mmol/L (135-149)
[2022-07-02 14:46] LABS: Creatinine* 1.6 mg/dL (0.5-1.5); Estimated Glomerular Filt Rate 51 ml/min
[2022-07-02 14:47] LABS: Alanine Aminotransferase* 36 U/L (4-50); Alkaline Phosphatase* 101 U/L (40-150); Aspartate Amino Transferase* 23 U/L (12-35); Bilirubin Total* 0.4 mg/dL (0.1-1.5); Blood Urea Nitrogen* 52 mg/dL (7-30); Carbon Dioxide* 26 mmol/L (20-32); Glucose* 158 mg/dL (60-115); Total Protein* 5.8 g/dL (6.0-8.3)
--- NOTE | 2022-07-02 15:13 | PC.NURSE ---
Pt present at [facility] for lab re-check. RN watched for lab results, discussed with Annika Holland APRN and provided pt with direction to resume calcium supplement. Pt verbalized understanding. Clive is scheduled next on 07/16/2022 for labs.
--- NOTE | 2022-07-09 09:49 | ONC.NURNOTE ---
Received phone call from patient stating that having severe pain in right leg. He has been isolated to his room for the last four days. He denies swelling or redness in this leg. He tried ibuprofen and tylenol for pain without relief. He had two year old oxycodone that he tried, that was also ineffective. He is unable to bear weight, and is wondering about options. [facility] [employer] [facility] told patient that if he is unable to get out of home to be seen in clinic by primary with assistance available to him, he will need to call an ambulance to get him to the ER in order to determine the cause and treat this pain. Patient is about 10 days out from treatment. Prior to ending phone call, care person in background notes that patient is also having difficulty with nausea and appetite. They were told that since he is planning to come into the ER for pain management, they can also talk with staff about this as well. Patient may need fluids pending his hydration status.
--- NOTE | 2022-07-12 15:55 | ONC.NURNOTE ---
Ed is on med sure. Brooke Salazar, Elevator Constructor Helper saw him. She states she is happy to see him again when he is ready and appropiate.
--- NOTE | 2022-07-17 13:34 | ONC.NURNOTE ---
Patient needs follow up appointment made per Med-Surg. Patient called and LM stating to call and set something up for Saturday. Saturday's schedule is full, and would like to keep option of seeing Dr. Norris via telehealth if someone cancels on Saturday. Will schedule with Annika in the meantime.
[2022-07-23 14:36] LABS: Albumin* 3.4 g/dL (3.3-5.0); Chloride* 101 mmol/L (96-114); Potassium* 5.2 mmol/L (3.6-5.1); Sodium* 133 mmol/L (135-149)
[2022-07-23 14:38] LABS: Aspartate Amino Transferase* 19 U/L (12-35); Bilirubin Total* 0.3 mg/dL (0.1-1.5); Carbon Dioxide* 29 mmol/L (20-32); Creatinine* 1.7 mg/dL (0.5-1.5); Estimated Glomerular Filt Rate 47 ml/min
[2022-07-23 14:39] LABS: Alanine Aminotransferase* 14 U/L (4-50); Alkaline Phosphatase* 135 U/L (40-150); Blood Urea Nitrogen* 20 mg/dL (7-30); Glucose* 145 mg/dL (60-115); Total Protein* 6.6 g/dL (6.0-8.3)
[2022-07-23 15:00] LABS: Basophils Absolute Auto 0.07 K/uL (0.00-0.30); Basophils Percent Auto 0.7 % (0.0-3.0); Eosinophils Absolute Auto 0.18 K/uL (0.00-0.50); Eosinophils Percent Auto 1.7 % (0.0-7.0); Hematocrit 31.6 % (37.0-53.0); Hemoglobin* 9.8 gm/dL (13.5-17.5); Lymphocytes Percent Auto 7.4 % (20-44); Mean Corpuscular HGB Conc 31 gm/dL (32-36); Mean Corpuscular Hemoglobin 32 pg (26-34); Mean Corpuscular Volume 102 fL (80-100); Monocytes Percent Auto 7.8 % (0.0-11.0); Neutrophils Percent Auto 81.4 % (42.0-72.0); Platelet Count* 404 K/uL (140-440); RDW Coefficient of Variation % 14.5 % (11.5-15.5); Red Blood Count 3.09 m/uL (4.30-5.90); White Blood Count* 10.43 K/uL (4.50-11.00)
[2022-07-23 15:06] LABS: Slide Review Reflex No
--- NOTE | 2022-07-23 16:14 | ONC.NURNOTE ---
Lab results reviewed with Annika RAND and called to Ed Ed requests an additional week off before restarting C#2 chemo rescheudled for next with provider visit and lab prior to chemo email sent to Dr Maria with update
--- NOTE | 2022-07-31 11:44 | ONC.NURNOTE ---
Patient was scheduled to be seen and treated on the same day 08/02/2022. Concerns were brought up by pharmacy and nursing that patient has been ill in the past and medication delayed. Request from pharmacy to treat patient next day, and discussed with director. It was determined that patient needs to be deemed safe to treat prior to ordering medication. Patient unable to come to clinic for his infusion on Saturday d/t his work schedule. He was willing and able to come to clinic on Saturday for a nursing assessment and labs. If deemed safe by nursing and patient, medication can be ordered by pharmacy for administration on per director. Patient expressed frustration with the need to do this since he was told that his episode in hospital had nothing to do with medication that received. Patient was told that if patient is stable and tolerates this cycle well, [facility] will consider going back to ordering medication prior to his appointment and being seen.
[2022-08-01 14:19] VITALS: BP 131/78; PULSE 82; RESP 16; TEMP 36.9; O2SAT 97
[2022-08-01 14:26] LABS: Basophils Percent Auto 0.2 % (0.0-3.0); Eosinophils Percent Auto 1.3 % (0.0-7.0); Hematocrit 31.3 % (37.0-53.0); Hemoglobin* 9.8 gm/dL (13.5-17.5); Immature Granulocytes Pct Auto 0.3 %; Lymphocytes Percent Auto 4.1 % (20-44); Mean Corpuscular HGB Conc 31 gm/dL (32-36); Mean Corpuscular Hemoglobin 32 pg (26-34); Mean Corpuscular Volume 101 fL (80-100); Monocytes Percent Auto 4.5 % (0.0-11.0); Neutrophils Percent Auto 89.6 % (42.0-72.0); Platelet Count* 485 K/uL (140-440); RDW Coefficient of Variation % 14.4 % (11.5-15.5); White Blood Count* 12.11 K/uL (4.50-11.00)
[2022-08-01 14:56] LABS: Chloride* 100 mmol/L (96-114)
[2022-08-01 14:57] LABS: Albumin* 3.8 g/dL (3.3-5.0); Potassium* 5.3 mmol/L (3.6-5.1); Sodium* 134 mmol/L (135-149)
[2022-08-01 14:59] LABS: Bilirubin Total* 0.3 mg/dL (0.1-1.5); Carbon Dioxide* 27 mmol/L (20-32); Creatinine* 1.8 mg/dL (0.5-1.5); Estimated Glomerular Filt Rate 44 ml/min
[2022-08-01 15:00] LABS: Alanine Aminotransferase* 20 U/L (4-50); Alkaline Phosphatase* 103 U/L (40-150); Aspartate Amino Transferase* 19 U/L (12-35); Blood Urea Nitrogen* 27 mg/dL (7-30); Glucose* 200 mg/dL (60-115); Total Protein* 7.3 g/dL (6.0-8.3)
[2022-08-01 15:02] LABS: Slide Review Reflex No
--- NOTE | 2022-08-01 16:24 | ONC.NURNOTE ---
Pt here for lab work and nursing assessment to determine if Cyramza should be ordered prior to MD appt tomorrow. Labs reviewed by Annika De La Cruz APRN and symptoms. Pt doing well, only concerns are pain with movement. Plan, cyramza ordered, pt to see Dr. Oliveira tomorrow prior to treatment.
[2022-08-02] MEDS: GRANISETRON 1 MG/ML inj IVP (12:45)
[2022-08-02] MEDS: dexAMETHasone 10 MG in 0.9 % SODIUM CHLORIDE 100 ml 100 ML 420 MG IVPB (12:46)
[2022-08-02] MEDS: diphenhydrAMINE 50 MG in 0.9 % SODIUM CHLORIDE 100 ml 100 ML 420 MG IVPB (13:03)
[2022-08-02 15:18] VITALS: BP 124/74; PULSE 71; O2SAT 98
[2022-08-09 10:25] VITALS: BP 121/80; PULSE 85; RESP 16; TEMP 36; O2SAT 95
[2022-08-09 10:27] LABS: Basophils Percent Auto 0.2 % (0.0-3.0); Eosinophils Percent Auto 0.9 % (0.0-7.0); Hematocrit 28.6 % (37.0-53.0); Hemoglobin* 9.4 gm/dL (13.5-17.5); Immature Granulocytes Pct Auto 1.5 %; Lymphocytes Percent Auto 4.4 % (20-44); Mean Corpuscular HGB Conc 33 gm/dL (32-36); Mean Corpuscular Hemoglobin 32 pg (26-34); Mean Corpuscular Volume 97 fL (80-100); Monocytes Percent Auto 9.9 % (0.0-11.0); Neutrophils Percent Auto 83.1 % (42.0-72.0); Platelet Count* 290 K/uL (140-440); RDW Coefficient of Variation % 14.7 % (11.5-15.5); Red Blood Count 2.96 m/uL (4.30-5.90)
[2022-08-09 10:30] LABS: Slide Review Reflex No
[2022-08-09 10:40] LABS: Chloride* 98 mmol/L (96-114); Potassium* 4.9 mmol/L (3.6-5.1); Sodium* 130 mmol/L (135-149)
[2022-08-09 10:44] LABS: Carbon Dioxide* 25 mmol/L (20-32)
--- NOTE | 2022-08-09 16:01 | ONC.NURNOTE ---
labs back. Ed is to continue taking NA 1000mg tid per Annika Wallace APRN. for serum Na 130. which is what Ed has been running. Ed stated eating and po intake. orthostatics wnl. declined need for IVF. slight nausea. few pinples on arm and neck per nl .
--- NOTE | 2022-08-09 16:03 | ONC.NURNOTE ---
Per Annika Wallace APRN. Ed to increase his NA to 1000mg qid and recheck electrolyes next week.
[2022-08-16 10:30] LABS: Chloride* 101 mmol/L (96-114); Potassium* 4.8 mmol/L (3.6-5.1); Sodium* 133 mmol/L (135-149)
[2022-08-16 10:34] LABS: Carbon Dioxide* 25 mmol/L (20-32)
--- NOTE | 2022-08-20 12:16 | ONC.NURNOTE ---
Received call from pt reporting worsening SOB symptoms these last 4 days. He describes each time he falls asleep he wakes up gasping with O2 sats ~73%; he reports 2-3 episodes of this last night, worse than prior days. He also notes generalized increased SOB, specifically when walking across the room, which is a new symptom. He monitors his VS at home: BP today 114/65, HR 87. Current Sats 98%. Reviewed with Annika Wallace APRN as pt's PCP is Dr. Camacho and is not available in clinic today. Recommend pt be seen in ED with consideration of possible CHF exacerbation vs side effects of chemotherapy vs symptoms of lung cancer. Pt agreeable to this plan. Report given to Yola in ED; pt to proceed to ED within next hour when his ride arrives.
--- NOTE | 2022-08-21 12:54 | ONC.NURNOTE ---
Addendum entered by Ave Allen RN 08/22/22 14:43: Certified [employer] worked with WARE TESTER to determine next steps for scheduling for patient. She would like patient to see oncologist prior to getting next infusion. She is also requesting ECHO, and cardiology referral. The following scheduling has been completed: -ECHO scheduled for 08/23 at 1500. -Cardiology appointment scheduled for 09/21/2022 at [facility]. WARE TESTER would like to have patient seen sooner, and patient is willing to be seen with [facility]. Certified [employer] Engineer called [phone] to see if able to get in sooner. Phone number to be given to patient to schedule per his comfort of driving location and date. -Appointment made for patient to see oncology on 08/28 at 9:00 to discuss possibility of getting infusions. Original Note: WARE TESTER asked that nursing call patient and let him know that he needs to be seen by his primary prior to coming into the [facility] for treatment d/t BNP level. Patient will contact PCP to make an appointment and let us know when that is in order to schedule his next appointment here. Per WARE TESTER, patient should be seen on a day that oncologist is here to help with managing the pericardial effusion if needed.
--- NOTE | 2022-11-20 14:42 | ONC.NURNOTE ---
Request received for records to be faxed to [facility] for [facility] from 07/07/22 to current faxed to [phone] Case # [id number] MALACHI signed document received with request
== END 2022-12-23 23:59 | disposition home or self-care (01) ==
LOC: CCIC 09:00
PROVIDERS: Clinical Nurse Specialist; Physician Assistant; PCP Family Medicine; Referring Provider Family Medicine; Visit Provider Internal Medicine Hematology & Oncology
DX: C34.92 Malignant neoplasm of unspecified part of left bronchus or lung (principal); R06.02 Shortness of breath
CPT/HCPCS: 36415; 80048; 80051; 80053; 82330; 82533; 85025; 96360; 96361; 96376; 96377; 96413; 96417; 99211; 99212; 99213; 99214; 99215; 99222; J2506; J1100; J1200; J1626; J7030; J7050; J9171; J9308

== ENCOUNTER 2022-09-27 14:30 | Outpatient (CLI) | payer BC, SELFPAY ==
--- NOTE | 2022-09-27 14:45 | CRLHL7_ITS ---
For Patients: As a result of the 21st Century Cures Act, medical imaging exams and procedure reports are released immediately into your electronic medical record. You may view this report before your referring provider. If you have questions, please contact your health care provider. EXAM: PET-CT SKULL BASE TO THIGH CLINICAL INFORMATION: 52-yo male with metastatic lung cancer. Prior left lung radiation. Chemotherapy. Patient is referred for further characterization. TECHNIQUE: Radiopharmaceutical: 12.16 mCi of 18F-FDG Intravenous injection site: RAC Uptake time: 68 minutes Blood glucose level at the time of injection: 138 mg/dL Field of view: Skull base to mid-thighs Intravenous contrast: Not administered Oral contrast: Not administered CT protocol: The low-dose, free-breathing, noncontrast CT performed as part of this study is designed for the purposes of attenuation correction and lesion localization, and it is neither sufficient, nor it should be substituted for diagnostic purposes. COMPARISON: CT chest abdomen pelvis 07/11/2022. PET-CT 05/24/2022 FINDINGS: Physiologic background liver standardized uptake value (SUV mean and SUV max) reported for comparison between PET studies: 3.1 and 4.2. Visualized head and neck: Physiologic uptake in the visualized portions of the brain and salivary glands. Head and neck lymph nodes: Mildly increased uptake within small bilateral low neck lymph nodes. Lungs: Respiratory motion artifact. Centrally necrotic left upper lobe mass with mildly decreased peripheral uptake, 6.2 x 4.4 cm, SUV max 19.4 (fused image 92). Previously 5.5 x 3.9 cm, SUV max 23.2. Increased consolidative opacity anterior left upper lobe, SUV max 4.7. Possibly reactive/inflammatory or infectious. Similar consolidative opacity posterior and medial left lower lobe with mildly decreased uptake, SUV max 3.9. Previously 4.8. -increased nodular interstitial changes in the right upper lobe and lateral right lower lobe with a new right perihilar opacity, SUV max 6.8 (fused image 113). Pleura and pericardium: Moderate pericardial effusion increased from prior. New small layering right pleural effusion. Similar left chest pleural thickening with small loculated pleural fluid in the posterior inferior left chest. Variable areas of pleural related uptake in the posterior left base. For example: Medial inferior left chest pleural uptake, SUV max 9.3 (fused image 147). Previously 12.9. Thoracic lymph nodes: Variable residual intense uptake within multi station mediastinal, subcarinal and left hilar lymph nodes. Increased size and uptake of several left axillary lymph nodes with progressive chest wall invasion of a larger left axillary peggy mass. New and increased uptake multiple right hilar/perihilar lymph nodes. For example: -prevascular peggy uptake, SUV max 14.2 (fused image 84). Previously 6.1. -superior left axillary peggy mass, 4.0 cm, SUV max 25.5 (fused image 85). Previously 2.9 cm, SUV max 29.6. Increased chest wall invasion between the 2nd and 3rd rib (fused image 90). -new high left axillary lymph node, SUV max 26.9 (fused image 76). -increased uptake precarinal lymph node, 1.3 cm, SUV max 17.4 (fused image 100). -new right hilar peggy uptake, SUV max 19.7 (fused image 117). Liver/spleen/pancreas: No abnormal uptake. Similar splenomegaly. Adrenals: Similar left adrenal configuration and uptake. Right adrenal mass is larger with areas of central necrosis and peripheral uptake, 6.2 x 5.1 cm, SUV max 15.7. Previous PET-CT, 4.1 x 3.2 cm, SUV max 18.0. Kidneys and bladder: Diffuse bilateral perinephric stranding. No high-grade obstruction. Partially distended bladder. Bowel and peritoneum: No suspicious gastric, small bowel or colon uptake. Unremarkable appendix. Pelvic organs: No abnormal uptake. Abdominopelvic lymph nodes: Increased size and uptake of bilateral retrocrural, bilateral retroperitoneal and bilateral common iliac lymph nodes. For example: -right retrocrural lymph node, 0.8 cm short axis, SUV max 26.4. Previously SUV max 2.3. -precaval lymph node, 1.8 cm short axis, SUV max 27.0. Previously 0.8 cm short axis, SUV max 3.2. -aortocaval lymph node, 1.0 cm short axis, SUV max 21.8 (fused image 187). Previously 0.5 cm short axis, SUV max 2.9. -left retroperitoneal lymph node, 1.1 cm short axis, SUV max 26.9 (fused image 192). Previously 0.4 cm short axis, SUV max 1.8. -left common iliac lymph node, 1.3 cm short axis, SUV max 22.0. Previously, 0.4 cm short axis, SUV max 1.7. Musculoskeletal, soft tissues, skin: No new aggressive, lytic or expansile osseous lesions with uptake. Similar sclerotic lesions in T3 and S1. Prior operative fixation of a pathologic fracture of the proximal right femoral shaft. Increased lobulated fluid density collections in the soft tissues along the lateral and medial proximal femoral shaft with mild peripheral uptake. For example: -new hypodense collection with peripheral uptake proximal medial right thigh soft tissues, 6.3 x 5.1 cm, SUV max 8.0 (few image 318). -increased hypodense collection with peripheral uptake in the soft tissues along the lateral and posterior proximal right femoral shaft, 5.0 x 6.2 cm, SUV max 4.9 (fused image 307). Other: Small fluid in the pericolic gutters and pelvis. Diffuse aortoiliac atherosclerotic vascular calcifications. Fat containing umbilical hernia. -increased generalized muscle uptake within the lower neck, chest/intercostal musculature, diaphragm and abdominal wall muscles. IMPRESSION: 1. Increased size of a centrally necrotic left upper lobe mass with mildly decreased though persistent intense uptake. New/increased consolidative opacity anterior left upper lobe with moderate uptake. Possibly inflammatory/reactive or infectious. Attention on follow-up. Progressive nodular interstitial changes right lung with new right hilar opacity and mild uptake indeterminate. 2. Variable residual intense uptake within multi station mediastinal lymph nodes. Increased uptake and number of paratracheal, right hilar and right perihilar lymph nodes. New and increased left axillary lymph nodes with uptake and increased size and more conspicuous chest wall invasion of a larger dominant axillary peggy mass. 3. Increased size, number and degree of uptake of bilateral retrocrural, bilateral retroperitoneal and bilateral common iliac lymph nodes. 4. Increased size of a centrally necrotic right adrenal mass with mildly decreased though persistent intense uptake. 5. Similar splenomegaly with no focal uptake. 6. New and increased size of lobulated fluid density collections with peripheral uptake in the soft tissues surrounding the lateral and medial margin of the proximal right femur site of prior pathologic fracture. Consider direct ultrasound or additional cross-sectional imaging for further characterization. Possibly reactive/inflammatory or infectious. Necrotic tumor not excluded. 7. Other nonacute findings as detailed in the body of the report. Dictated by Toan Banerjee MD @ 10/07/2022 7:57:56 PM (Electronically Signed)
== END 2022-09-27 14:31 | disposition home or self-care (01) ==
LOC: RAD 14:30
PROVIDERS: PCP Family Medicine; Visit Provider Internal Medicine Hematology & Oncology
DX: C34.12 Malignant neoplasm of upper lobe, left bronchus or lung (principal)
CPT/HCPCS: 78815; A9552

== ENCOUNTER 2023-01-25 14:30 | Outpatient (CLI) | payer BC, MEDICARE, SELFPAY ==
--- NOTE | 2023-01-25 14:30 | CRLHL7_ITS ---
For Patients: As a result of the Century Cures Act, medical imaging exams and procedure reports are released immediately into your electronic medical record. You may view this report before your referring provider. If you have questions, please contact your health care provider. INDICATION: Lung cancer. Evaluate for intracranial metastatic disease. TECHNIQUE: Brain MRI with contrast. The following sequences were obtained: Sagittal T1 weighted sequence. DWI and ADC mapping sequences. Axial FLAIR and MAGUE T2 weighted sequences. Susceptibility weighted or GRE sequence. T1 weighted post-contrast sequence(s). 15 cc of Dotarem gadolinium based contrast agent was used. COMPARISON: Brain MRI from 09/12/2022. FINDINGS: No evidence of acute ischemia. No evidence of acute or chronic intracranial blood products. No mass or pathologic intracranial enhancement. No intracranial signal abnormality. No hydrocephalus or extra-axial collections. The pituitary gland, parasellar structures and optic chiasm are normal. Posterior fossa is normal. All the major intracranial vascular structures demonstrate normal flow-related signal. The orbital contents are normal. No calvarial or skull base marrow signal abnormality. No obstructive sinus disease. No extracranial soft tissue findings. IMPRESSION: 1. No evidence of intracranial metastatic disease. 2. No acute infarction or other acute intracranial pathology. 3. Mild chronic microvascular ischemic changes. Dictated by Shaq Webb MD @ 01/31/2023 8:23:50 PM (Electronically Signed)
== END 2023-01-25 14:31 | disposition home or self-care (01) ==
LOC: MRI 14:31
PROVIDERS: PCP Family Medicine; Visit Provider Internal Medicine Hematology & Oncology
DX: C34.90 Malignant neoplasm of unspecified part of unspecified bronchus or lung (principal); I67.82 Cerebral ischemia; C79.51 Secondary malignant neoplasm of bone
CPT/HCPCS: 70553; A9575

== ENCOUNTER 2023-02-27 14:57 | Emergency (ER) | payer BC, MEDICARE, SELFPAY ==
[2023-02-27 15:05] VITALS: BP 129/74; PULSE 84; RESP 20; O2SAT 95; BMI 28.5
--- NOTE | 2023-02-27 15:12 | ED.GENADULT ---
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 Patient states he restarted his chemotherapy 3 weeks ago, he states that over the last 2 weeks he has had intermittent nausea vomiting, worsening over the last 2 days, patient is able to tolerate orals, but certain foods he ends up vomiting. Patient feels that his breathing has been stable, denies any chest pain or abdominal pain, patient denies any increased weakness, no falls, lightheadedness or dizziness. He has not had any fevers or chills, no sick contacts. Denies any diarrhea or urinary complaints. Patient was admitted last July for hyperkalemia and hyponatremia, he was off chemotherapy since then, until about 3 weeks ago. Oncology was concerned that this could be reoccurring. He has been taking Compazine and Zofran at home with no relief. patient denies any pain at this time. Related Data Home Medications Medication Instructions Recorded Confirmed cholecalciferol (vitamin D3) 50 50 mcg PO DAILY 02/01/22 02/27/23 mcg (2,000 unit) tablet cinnamon bark 500 mg capsule 500 mg PO DAILY 02/01/22 02/27/23 ferrous gluconate 240 mg (27 mg 130 mg PO DAILY 02/01/22 02/27/23 iron) tablet polyethylene glycol 3350 17 17 g PO DAILY PRN 02/01/22 02/27/23 gram/dose oral powder acetaminophen 500 mg tablet 1,000 mg PO QID PRN 06/04/22 02/27/23 (Tylenol Extra Strength) gabapentin 300 mg capsule 300 mg PO DAILY 07/09/22 02/27/23 metoprolol succinate 200 mg 200 mg PO DAILY 07/09/22 02/27/23 tablet,extended release 24 hr dexamethasone 4 mg tablet 8 mg PO BID PRN fluid retention, 08/27/22 02/27/23 hypersensitivity from chemo diltiazem HCl 120 mg 120 mg PO QAM 09/24/22 02/27/23 tablet,extended release 24 hr sodium chloride 1,000 mg soluble 1,000 mg PO QDAY 02/04/23 02/27/23 tablet Previous Rx's Medication Instructions Recorded triamcinolone acetonide 0.1 % 1 applic topical BID PRN itching 01/18/22 topical cream #30 grams lorazepam 0.5 mg tablet 0.5 mg PO Q8H PRN insomnia after 06/27/22 chemo, uncontrolled nausea #30 tabs amlodipine 10 mg tablet 10 mg PO QDAY #90 tabs 07/23/22 albuterol sulfate 2.5 mg/3 mL 2.5 mg (3 mL) inhalation Q4-6H PRN 09/24/22 (0.083 %) solution for nebulization shortness of breath or wheezing #75 mL codeine 10 mg-guaifenesin 100 mg/5 10 ml PO Q4-6H PRN cough #120 mL 09/24/22 mL oral liquid ondansetron HCl 4 mg tablet 4 mg PO Q6H PRN nausea #40 tabs 02/04/23 oxycodone 5 mg tablet 5 mg PO Q4H PRN pain #90 tabs 02/19/23 fentanyl 25 mcg/hr transdermal 1 patch topical Q3D cancer pain #5 02/27/23 patch ea metoclopramide HCl 10 mg tablet 10 mg PO Q6H PRN nausea and 02/27/23 (Reglan) vomiting #20 tabs Allergies Allergy/AdvReac Type Severity Reaction Status Date / Time cephalexin Allergy Severe tongue Verified 02/27/23 14:32 swelling hydrochlorothiazide Allergy Severe tongue Verified 02/27/23 14:32 swelling Review of Systems Status of ROS: Reports: 10 or more systems reviewed and unremarkable except as noted in History and below [facility] Medical History Lung cancer metastatic to bone ?C34.90 - Malignant neoplasm of unspecified part of unspecified bronchus or lung (ICD-10) ?C79.51 - Secondary malignant neoplasm of bone (ICD-10) Hypoalbuminemia ?E88.09 - Other disorders of plasma-protein metabolism, not elsewhere classified (ICD-10) Stage 3 chronic kidney disease ?N18.30 - Chronic kidney disease, stage 3 unspecified (ICD-10) Hyperkalemia ?E87.5 - Hyperkalemia (ICD-10) Hypocalcemia ?E83.51 - Hypocalcemia (ICD-10) Lower extremity pain, right ?M79.604 - Pain in right leg (ICD-10) Metastasis to adrenal gland ?C79.70 - Secondary malignant neoplasm of unspecified adrenal gland (ICD-10) Anemia ?D64.9 - Anemia, unspecified (ICD-10) Obesity with body mass index (BMI) of 30.0 to 39.9 ?E66.9 - Obesity, unspecified (ICD-10) ROSALIND on CPAP ?G47.33 - Obstructive sleep apnea (adult) (pediatric) (ICD-10) ?Z99.89 - Dependence on other enabling machines and devices (ICD-10) Type 2 diabetes mellitus with diabetic nephropathy ?E11.21 - Type 2 diabetes mellitus with diabetic nephropathy (ICD-10) Stage IV squamous cell carcinoma of lung (2020) ?C34.90 - Malignant neoplasm of unspecified part of unspecified bronchus or lung (ICD-10) Stage 1 chronic kidney disease ?N18.1 - Chronic kidney disease, stage 1 (ICD-10) Seborrheic dermatitis ?L21.9 - Seborrheic dermatitis, unspecified (ICD-10) Rosacea ?L71.9 - Rosacea, unspecified (ICD-10) Proteinuria ?R80.9 - Proteinuria, unspecified (ICD-10) Pleural effusion ?J90 - Pleural effusion, not elsewhere classified (ICD-10) Hyponatremia ?E87.1 - Hypo-osmolality and hyponatremia (ICD-10) Hypocalcemia ?E83.51 - Hypocalcemia (ICD-10) Hypervolemia ?E87.70 - Fluid overload, unspecified (ICD-10) Hypertension ?I10 - Essential (primary) hypertension (ICD-10) Hyperplastic colonic polyp ?K63.5 - Polyp of colon (ICD-10) Hyperlipidemia ?E78.5 - Hyperlipidemia, unspecified (ICD-10) Fracture of right femur ?S72.91XA - Unspecified fracture of right femur, initial encounter for closed fracture (ICD-10) Epistaxis ?R04.0 - Epistaxis (ICD-10) Cellulitis and abscess of face ?L03.211 - Cellulitis of face (ICD-10) ?L02.01 - Cutaneous abscess of face (ICD-10) Cellulitis ?L03.90 - Cellulitis, unspecified (ICD-10) Atrial fibrillation with rapid ventricular response ?I48.91 - Unspecified atrial fibrillation (ICD-10) Alcoholic intoxication ?F10.929 - Alcohol use, unspecified with intoxication, unspecified (ICD-10) Adverse effect of angiotensin-converting enzyme inhibitor ?T46.4X5A - Adverse effect of ntzxdwncrop-mowmqvjnqq-pnpbtf inhibitors, initial encounter (ICD-10) Surgical History (Updated 02/27/23 @ 18:13 by Lew Pierce MD) History of surgery on lower extremity (03/19/20) ?Z98.890 - Other specified postprocedural states (ICD-10) Status post hemorrhoidectomy ?Z98.890 - Other specified postprocedural states (ICD-10) ?Z87.19 - Personal history of other diseases of the digestive system (ICD-10) History of colonoscopy ?Z98.890 - Other specified postprocedural states (ICD-10) Family History (Updated 07/09/22 @ 19:03 by Kurt Pinto MD) Father Lung cancer Grandfather Lung cancer Social History (Updated 07/09/22 @ 19:04 by Kurt Pinto MD) Narrative: He lives with his , Marianne, in [place]. 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 His code status is full. He is a former cigarette smoker. He no longer drinks alcohol. He has no recreational drug use. Highest level of school completed/degree received: Associate degree: academic program Smoking Status: Former smoker What tobacco products do you use: cigarettes Smoking quit date/years: <= 15 years ago Do you use any of these nicotine containing products: None Second hand tobacco smoke exposure: No How often do you have a drink containing alcohol: never How often do you have six or more drinks on one occasion: Never AUDIT-C Alcohol total score: 0 Non-prescribed substance use: denies use Caffeine: No Little interest or pleasure in doing things: not at all Feeling down, depressed, or hopeless: not at all service: No Exam Narrative: Exam Narrative: General: No obvious distress sitting comfortably HEENT: Oropharynx clear and moist, pupils equal round reactive to light, extraocular muscles intact Neck: Supple, no adenopathy, full range of motion Lungs: Clear to auscultation bilaterally, no stridor, wheezing, rales or rhonchi Heart: Normal sinus rhythm S1-S2 Abdomen: soft nontender bowel sounds present Muscle skeletal: +5 strength upper lower extremities, no lower extremity edema Neuro: Alert awake and oriented x3 Const: Vital Signs, click to edit/add: Vital Signs - 24 hr 02/27/23 15:05 02/27/23 17:45 Pulse Rate [Pulse Oximeter] 84 71 Respiratory Rate 20 20 Blood Pressure [Le ft Upper Arm] 129/74 132/80 Pulse Oximetry 95 96 Oxygen Delivery Me thod Room Air Room Air Course Course ED Course: 3:15 PM: AIDET performed. Vitals are normal at this time, workup will include 0.9 normal saline bolus, 10 mg IV Reglan for his nausea, will obtain metabolic panel make sure no hyponatremia or hyperkalemia, EKG, CBC, XR chest PA and lateral based on his SCC, patient was in agreement. Differential diagnosis include viral gastroenteritis, drug food poisoning, pyloric stenosis, gastritis, pancreatitis hepatitis cholecystitis and appendicitis, also consider bowel obstruction hyperemesis, bulimia, sepsis, medication side effects including chemotherapy Reevaluation(s) Time of Reevaluation #1: 16:44 Reevaluation #1: Imaging: XR chest PA and lateral: FINDINGS/IMPRESSION: The cardiomediastinal silhouette is shifted to the left. There is volume loss in the left hemithorax with focal opacification in the left upper lobe consistent with mass seen on prior cross-sectional imaging. Small left pleural effusion. The right lung is clear. No displaced fractures. Reevaluation #2: CBC showed chronic anemia, hemoglobin similar to previous, no leukocytosis or neutropenia, neutrophil% 90.7, neutrophil 18.5, blood cultures pending, lactate normal at 0.8, metabolic panel showed a normal potassium, mildly low sodium at 3.1, normal renal function and mild elevated magnesium, imaging shows stable findings, EKG showed a normal sinus rhythm be p.m. 80, no ectopy or acute ST changes compared to previous, he was given the above care and did well, he was tolerating orals and ambulating with no difficulty on discharge, patient has follow-up with Oncology this Saturday, reasons to return were given. Time of Reevaluation #3: 18:14 Vital Signs Vital signs: Initial Vital Signs Temperature Source Temporal Artery Scan 02/27/23 15:05 Pulse Rate 84 02/27/23 15:05 Pulse Rhythm Regular 02/27/23 15:05 Respiratory Rate 20 02/27/23 15:05 Blood Pressure 129/74 02/27/23 15:05 Blood Pressure Mean 92 02/27/23 15:05 Blood Pressure Position Supine 02/27/23 15:05 Pulse Oximetry 95 02/27/23 15:05 Oxygen Delivery Method Room Air 02/27/23 15:05 Vital Signs Pulse Rate 84 02/27/23 15:05 Respiratory Rate 20 02/27/23 15:05 Blood Pressure 129/74 02/27/23 15:05 Pulse Oximetry 95 02/27/23 15:05 Oxygen Delivery Method Room Air 02/27/23 15:05 Pulse Rate 71 02/27/23 17:45 Respiratory Rate 20 02/27/23 17:45 Blood Pressure 132/80 02/27/23 17:45 Pulse Oximetry 96 02/27/23 17:45 Oxygen Delivery Method Room Air 02/27/23 17:45 Medications Administered Medications: Discontinued Medications Generic Name Dose Route Start Last Admin Trade Name Freq PRN Reason Stop Dose Admin Sodium Chloride 1,000 mls @ 1,000 mls/hr 02/27/23 15:28 02/27/23 17:24 0.9 % Sodium Chloride 1000 Ml IV 02/27/23 16:27 Infused .Q1H ALLEN Infusion Metoclopramide HCl 10 mg 02/27/23 15:27 02/27/23 16:17 Metoclopramide Hcl 5 Mg/Ml Inj IVP 02/27/23 15:28 10 mg ONCE ONE Administration Oxycodone HCl 5 mg 02/27/23 17:37 02/27/23 17:44 Oxycodone 5 Mg Tablet PO 02/27/23 17:38 5 mg ONCE ONE Administration Medical Decision Making Lab Data Labs: Lab Results 02/27/23 02/27/23 Range/Units 16:00 17:20 WBC 10.84 (4.50-11.00) K/uL RBC 3.17 L (4.30-5.90) m/uL Hgb 8.9 L (13.5-17.5) gm/dL Hct 28.9 L (37.0-53.0) % MCV 91 (80-100) fL MCH 28 (26-34) pg MCHC 31 L (32-36) gm/dL RDW Coeff of Rush 15.3 (11.5-15.5) % Plt Count 592 H (140-440) K/uL Neut % (Auto) 87.2 H (42.0-72.0) % Lymph % (Auto) 4.7 L (20-44) % Woodruff % (Auto) 7.0 (0.0-11.0) % Eos % (Auto) 0.6 (0.0-7.0) % Baso % (Auto) 0.1 (0.0-3.0) % Neut # (Auto) 9.50 H (1.7-7.0) K/uL Lymph # (Auto) 0.50 L (0.90-2.90) K/uL Woodruff # (Auto) 0.80 (0.00-0.90) K/UL Eos # (Auto) 0.07 (0.00-0.50) K/uL Baso # (Auto) 0.01 (0.00-0.30) K/uL Abs Immat Gran (auto) 0.04 (0.00-0.30) K/uL Imm/Tot Granulo (auto) 0.4 % Sodium 131 L (135-149) mmol/L Potassium 5.1 (3.6-5.1) mmol/L Chloride 98 (96-114) mmol/L Carbon Dioxide 25 (20-32) mmol/L Anion Gap 8 (7-15) mEq/L BUN 25 (7-30) mg/dL Creatinine 1.5 (0.5-1.5) mg/dL Estimated Creat Clear 61.79 Estimated GFR 55 ml/min Glucose 125 H (60-115) mg/dL Lactate 0.8 (0.5-1.9) mmol/L Calcium 9.8 (8.4-10.6) mg/dL Magnesium 2.8 H (1.5-2.6) mg/dL Total Bilirubin 0.2 (0.1-1.5) mg/dL AST 18 (12-35) U/L ALT 9 (4-50) U/L Alkaline Phosphatase 141 (40-150) U/L Total Protein 7.3 (6.0-8.3) g/dL Albumin 3.9 (3.3-5.0) g/dL Lipase 19 L (23-300) U/L Discharge Plan Discharge Clinical Impression: Small cell carcinoma of lung, Status post chemotherapy, Nausea & vomiting Patient Disposition: Home, Self-Care Condition: Improved Instructions: Acute Nausea and Vomiting (ED) Additional Instructions: Reglan 10 mg orally every 6 hours as needed for nausea or vomiting, follow-up with oncology as scheduled on Saturday, return if worsening symptoms. Activity Level: Activity as Tolerated Prescriptions: New metoclopramide HCl [Reglan] 10 mg tablet 10 mg PO Q6H PRN (Reason: nausea and vomiting) Qty: 20 0RF No Action cholecalciferol (vitamin D3) 50 mcg (2,000 unit) tablet 50 mcg PO DAILY Hold Instructions: Doctor's Order cinnamon bark 500 mg capsule 500 mg PO DAILY polyethylene glycol 3350 17 gram/dose powder 17 g PO DAILY PRN ferrous gluconate 240 mg (27 mg iron) tablet 130 mg PO DAILY Hold Instructions: per pt preference dexamethasone 4 mg tablet 8 mg PO BID PRN (Reason: fluid retention, hypersensitivity from chemo) Rx Instructions: Take 2 tabs (8mg) twice per day for 3 days, starting the day before chemo. Take with food. ondansetron HCl 4 mg tablet 4 mg PO Q6H PRN (Reason: nausea) Qty: 40 2RF Rx Instructions: Take for nausea not controlled with compazine (prochlorperazine). triamcinolone acetonide 0.1 % cream 1 applic topical BID PRN (Reason: itching) Qty: 30 2RF acetaminophen [Tylenol Extra Strength] 500 mg tablet 1,000 mg PO QID PRN amlodipine 10 mg tablet 10 mg PO QDAY Qty: 90 3RF diltiazem HCl 120 mg tablet extended release 24 hr 120 mg PO QAM codeine-guaifenesin 10-100 mg/5 mL liquid 10 ml PO Q4-6H PRN (Reason: cough) Qty: 120 2RF albuterol sulfate 2.5 mg /3 mL (0.083 %) solution for nebulization 2.5 mg inhalation Q4-6H PRN (Reason: shortness of breath or wheezing) Qty: 75 1RF sodium chloride 1,000 mg tablet,soluble 1,000 mg PO QDAY Rx Instructions: for hyponatremia metoprolol succinate 200 mg tablet extended release 24 hr 200 mg PO DAILY gabapentin 300 mg capsule 300 mg PO DAILY lorazepam 0.5 mg tablet 0.5 mg PO Q8H PRN (Reason: insomnia after chemo, uncontrolled nausea) Qty: 30 0RF Rx Instructions: Take 1 tab every 8 hours if needed for insomnia after chemo, or nausea not controlled with zofran (ondansetron). Use with caution with other sedating meds. oxycodone 5 mg tablet 5 mg PO Q4H PRN (Reason: pain) Qty: 90 0RF fentanyl 25 mcg/hr patch 72 hour 1 patch topical Q3D Qty: 5 0RF Follow Up/Referrals: Eliezer Camacho MD [Primary Care Provider] - Stand Alone Forms: MyHealth Info Instructions
--- NOTE | 2023-02-27 15:29 | CRLHL7_ITS ---
For Patients: As a result of the Century Cures Act, medical imaging exams and procedure reports are released immediately into your electronic medical record. You may view this report before your referring provider. If you have questions, please contact your health care provider. INDICATION: History of squamous cell carcinoma. Nausea and vomiting. No fusion across. TECHNIQUE: Chest 1 views. COMPARISON: PET-CT report on 10/07/2022 and multiple prior exams. FINDINGS/IMPRESSION: The cardiomediastinal silhouette is shifted to the left. There is volume loss in the left hemithorax with focal opacification in the left upper lobe consistent with mass seen on prior cross-sectional imaging. Small left pleural effusion. The right lung is clear. No displaced fractures. Dictated by Dick Ryan MD @ 02/27/2023 4:39:16 PM (Electronically Signed)
[2023-02-27] MEDS: 0.9 % SODIUM CHLORIDE 1000 ml 1,000 ML IV (16:17)
[2023-02-27] MEDS: METOCLOPRAMIDE HCL 5 MG/ML INJ 10 MG IVP (16:17)
[2023-02-27 16:20] LABS: Basophils Absolute Auto 0.01 K/uL (0.00-0.30); Basophils Percent Auto 0.1 % (0.0-3.0); Eosinophils Absolute Auto 0.07 K/uL (0.00-0.50); Eosinophils Percent Auto 0.6 % (0.0-7.0); Hematocrit 28.9 % (37.0-53.0); Hemoglobin* 8.9 gm/dL (13.5-17.5); Immature Granulocytes Abs Auto 0.04 K/uL (0.00-0.30); Immature Granulocytes Pct Auto 0.4 %; Lymphocytes Percent Auto 4.7 % (20-44); Mean Corpuscular HGB Conc 31 gm/dL (32-36); Mean Corpuscular Hemoglobin 28 pg (26-34); Mean Corpuscular Volume 91 fL (80-100); Neutrophils Percent Auto 87.2 % (42.0-72.0); Platelet Count* 592 K/uL (140-440); RDW Coefficient of Variation % 15.3 % (11.5-15.5); Red Blood Count 3.17 m/uL (4.30-5.90); White Blood Count* 10.84 K/uL (4.50-11.00)
[2023-02-27 16:25] LABS: Slide Review Reflex No
[2023-02-27 16:44] LABS: Albumin* 3.9 g/dL (3.3-5.0)
[2023-02-27 16:45] LABS: Chloride* 98 mmol/L (96-114); Potassium* 5.1 mmol/L (3.6-5.1); Sodium* 131 mmol/L (135-149)
[2023-02-27 16:47] LABS: Anion Gap 8 mEq/L (7-15); Aspartate Amino Transferase* 18 U/L (12-35); Bilirubin Total* 0.2 mg/dL (0.1-1.5); Carbon Dioxide* 25 mmol/L (20-32); Creatinine* 1.5 mg/dL (0.5-1.5); Est. Creatinine Clearance* 61.79; Estimated Glomerular Filt Rate 55 ml/min
[2023-02-27 16:48] LABS: Alanine Aminotransferase* 9 U/L (4-50); Alkaline Phosphatase* 141 U/L (40-150); Blood Urea Nitrogen* 25 mg/dL (7-30); Calcium* 9.8 mg/dL (8.4-10.6); Glucose* 125 mg/dL (60-115); Lipase* 19 U/L (23-300); Magnesium* 2.8 mg/dL (1.5-2.6); Total Protein* 7.3 g/dL (6.0-8.3)
[2023-02-27 17:37] LABS: Lactate* 0.8 mmol/L (0.5-1.9)
[2023-02-27] MEDS: OXYCODONE 5 MG TABLET PO (17:44)
[2023-02-27 17:45] VITALS: BP 132/80; PULSE 71; RESP 20; O2SAT 96
== END 2023-02-27 18:32 | disposition home or self-care (01) ==
PROVIDERS: Emergency Provider Student in an Organized Health Care Education/Training Program; PCP Family Medicine
DX: C34.92 Malignant neoplasm of unspecified part of left bronchus or lung (principal); R11.2 Nausea with vomiting, unspecified; Z08 Encounter for follow-up examination after completed treatment for malignant neoplasm
CPT/HCPCS: 36415; 71046; 80053; 83605; 83690; 83735; 85025; 87040; 93005; 96361; 96374; 99283; 99284; 99285; A9270; J2765; J7030

== ENCOUNTER 2023-03-11 12:13 | Outpatient (CLI) | payer BC, SELFPAY ==
--- NOTE | 2023-03-11 12:15 | CRLHL7_ITS ---
For Patients: As a result of the Cures Act, medical imaging exams and procedure reports are released immediately into your electronic medical record. You may view this report before your referring provider. If you have questions, please contact your health care provider. INDICATION: Rule out pneumonia TECHNIQUE: Chest 2 views. COMPARISON: Chest radiograph on February 28, 2020 FINDINGS/IMPRESSION: The cardiomediastinal silhouette is shifted to the left, unchanged. There is volume loss in the left hemithorax with focal opacification in the left upper lobe consistent with mass seen on prior cross-sectional imaging. Small left pleural effusion, similar compared to prior exam. The right lung is clear. No displaced fractures. Dictated by Dick Ryan MD @ 03/11/2023 3:28:02 PM (Electronically Signed)
== END 2023-03-11 12:14 | disposition home or self-care (01) ==
LOC: RAD 12:16
PROVIDERS: PCP Family Medicine; Visit Provider Clinical Nurse Specialist
DX: J90 Pleural effusion, not elsewhere classified (principal); C34.90 Malignant neoplasm of unspecified part of unspecified bronchus or lung; C79.51 Secondary malignant neoplasm of bone
CPT/HCPCS: 71046

== ENCOUNTER 2023-03-13 15:55 | Outpatient (CLI) | payer BC, MEDICARE, SELFPAY | END 2023-03-13 15:56 | disposition home or self-care (01) | LOC: NFLDREF 03-14 10:18 | PROVIDERS: PCP Family Medicine; Referring Provider Family Medicine; Visit Provider Clinical Nurse Specialist | DX: E87.1 Hypo-osmolality and hyponatremia (principal); N18.1 Chronic kidney disease, stage 1 | CPT/HCPCS: 80048 ==

== ENCOUNTER 2023-03-14 08:51 | Day surgery (SDC) | payer BC, MEDICARE, SELFPAY ==
[2023-03-14 09:08] VITALS: BMI 30.9
[2023-03-14 09:11] VITALS: BP 126/86; PULSE 68; RESP 16; TEMP 36.7; O2SAT 96
[2023-03-14] MEDS: LACTATED RINGERS 1000 ML 1,000 ML 100 ML IV (09:20)
[2023-03-14] MEDS: SODIUM CHLORIDE 0.9 % (FLUSH) 10 ML SYRINGE IVF (09:20)
[2023-03-14] MEDS: 0.9 % SODIUM CHLORIDE 1000 ml 1,000 ML 125 ML IV (09:52)
--- NOTE | 2023-03-14 10:00 | CRLHL7_ITS ---
For Patients: As a result of the Century Cures Act, medical imaging exams and procedure reports are released immediately into your electronic medical record. You may view this report before your referring provider. If you have questions, please contact your health care provider. Indication: PORTACATH PLACEMENT Technique: AP fluoroscopic image of the right upper chest. Fluoroscopic time 24.1 seconds. IMPRESSION: Fluoroscopic guidance for right-sided Port-A-Cath placement. Dictated by Pako Benito MD @ 03/14/2023 10:50:26 AM (Electronically Signed)
[2023-03-14] MEDS: CLINDAMYCIN 900 MG/50 ML-D5W 900 MG/50 ML PIGGYBACK 100 MG IVPB (10:10)
[2023-03-14] MEDS: 0.9 % SODIUM CHLORIDE 50 ml INJECTION (10:38)
[2023-03-14] MEDS: BUPIVACAINE 0.5% 30 ML INJECTION (10:38)
[2023-03-14] MEDS: LIDOCAINE 1 % PF 30 ML INJECTION (10:38)
[2023-03-14] MEDS: HEPARIN 500 UNIT/5 ML SYRINGE IVF (10:39)
--- NOTE | 2023-03-14 10:45 | CRLHL7_ITS ---
For Patients: As a result of the Century Cures Act, medical imaging exams and procedure reports are released immediately into your electronic medical record. You may view this report before your referring provider. If you have questions, please contact your health care provider. INDICATION: Post port placement TECHNIQUE: Chest 1 view COMPARISON: 03/11/2023 FINDINGS: Placement of right-sided Port-A-Cath. No pneumothorax. Persistent left pleural effusion with left perihilar/left upper lobe densities. IMPRESSION: No pneumothorax. Dictated by Pako Benito MD @ 03/14/2023 11:43:23 AM (Electronically Signed)
[2023-03-14 10:46] VITALS: BP 124/95; PULSE 71; RESP 16; TEMP 36.3; O2SAT 100
--- NOTE | 2023-03-14 10:50 | P.GSOP_ITS ---
Operative Note Pre-op diagnosis: Squamous cell carcinoma of the left lung Post-op diagnosis: Same Type of Procedure: Right internal jugular port a catheter placed Indications: Patient is a 52-year-old male, who has been undergoing treatment for squamous cell carcinoma of the left lung. It it was requested by Oncology that he have a port a catheter placement for administration of chemotherapy. Risks and benefits of the procedure were discussed at length with the patient at length. Risks included, but were not limited to: Bleeding, infection, risk of damage to surrounding structures possible need for additional procedures. All questions and concerns were addressed with patient agreeing to proceed. Procedure Description: After discussing the risks and benefits of the procedure, the patient signed informed consent.? The operative site was marked and the patient was brought to the operating room and placed on the operating table in supine position.? Care was taken to pad the patient's pressure points.?? The patient was then given sedation by anesthesia.?? The operative site was then prepped and draped in the usual sterile fashion.? A time-out was then performed. The patient's right internal jugular vein was visualized using ultrasound. Local anesthetic was injected into the neck skin above the vein. A skin jacque was made at the marked site. This was accessed percutaneously via Seldinger technique using ultrasound guidance. Next local anesthetic was injected into the skin below the clavicle and along the proposed tract to the neck incision. A skin incision was then made with a 15 blade and a pocket created in the chest wall with cautery. A tunneler was then used to thread the catheter from the chest wall pocket to the neck incision. Once this was done fluoroscopy was brought into the field. Over the wire the tract was dilated using fluoroscopy. The wire and the dilator were then removed leaving the sheath intact in the vein. Through this the catheter was threaded. Using fluoroscopy the catheter was positioned into the distal SVC. The catheter was noted to flush and aspirate easily. The catheter was then connected to the port. The port was placed in the pocket and secured in place with a single medial 2 0 Prolene stay suture. It was noted to flush and aspirate easily. This was then locked with he parinized saline. The skin was closed with absorbable suture. Sterile dressings were applied. The port was left accessed, per oncology instructions. Instrument sponge and needle counts were correct at the end of the case. The patient was woken and taken to the PACU in stable condition. Sterile dressings were then applied. ? The patient was then woken and transported to the recovery area in stable condition. ? The patient tolerated the procedure well. Findings: Compressible right internal jugular, successful placement of port a catheter. Anesthesia: MAC and local Surgeon: Mi Pascual MD Estimated blood loss (mL): 5 Condition: stable Disposition: same day Date of procedure: 03/14/23
[2023-03-14 11:00] VITALS: BP 124/79; PULSE 63; RESP 16; O2SAT 99
--- NOTE | 2023-03-14 11:09 | W.ANESCHARGE ---
Anesthesia Charges Start Date/Time Anesthesia Start Date: 03/14/23 Anesthesia Start Time: 09:51 Stop Date/Time Anesthesia Stop Date: 03/14/23 Anesthesia Stop Time: 10:50
[2023-03-14 11:15] VITALS: BP 132/94; PULSE 72; RESP 16; O2SAT 97
[2023-03-14 11:30] VITALS: BP 130/81; PULSE 65; RESP 16; O2SAT 97
[2023-03-14 11:45] VITALS: BP 123/72; PULSE 64; RESP 16; O2SAT 96
--- NOTE | 2023-03-25 08:33 | W.ANESCHARGE ---
Anesthesia Charges Start Date/Time Anesthesia Start Date: 03/14/23 Anesthesia Start Time: 09:51 Stop Date/Time Anesthesia Stop Date: 03/14/23 Anesthesia Stop Time: 10:50
== END 2023-03-14 12:15 | disposition home or self-care (01) ==
PROVIDERS: PCP Family Medicine; Visit Provider Surgery
PROC: (CPT 36561; principal; 2023-03-14 10:00)
DX: Z45.2 Encounter for adjustment and management of vascular access device (principal); C34.92 Malignant neoplasm of unspecified part of left bronchus or lung
CPT/HCPCS: 36561; 532; 71045; 76000; C1788; J0665; J1100; J1642; J2001; J2250; J2405; J2704; J3010; J3490; J7030; J7120; S0077

== ENCOUNTER 2023-04-11 17:03 | Outpatient (CLI) | payer BC, SELFPAY ==
--- NOTE | 2023-04-11 17:00 | PE_ITS ---
[facility] [address] [address] Phone:?[phone] Fax:?[phone] Referring Physician Information: Wanda Norris M.D. [address] [address] Phone:?[phone] Fax:?[phone] Patient:Rupert De La O D.O.B:?1970 Sex:?Male Phone:? [facility] MRN:?[id number] Exam Date:?04/11/2023 EXAM: PET/CT EYES TO THIGHS, CANCER RESTAGING CLINICAL INFORMATION: NSCLC, restaging. TECHNICAL INFORMATION: Helical acquisition of data was obtained from the orbits to the upper thighs with reconstruction of 3.75 mm thick images at 3.[address] data was used for attenuation correction. PET scanning was performed through the same anatomic range 60 minutes following administration of 11.1 mCi of 18-FDG delivered intravenously. The patient's glucose at the time of the injection was 123 mg/dL. PET, CT and PET/CT fusion images are interpreted using a computer viewing workstation. PET, CT and PET/CT fusion images were archived and saved in the patient's permanent medical record. COMPARISON: PET-CTs from 01/23/2023 and 09/27/2022. INTERPRETATION: Head and Neck: Modest FDG uptake noted within the lateralize right vocal cord (SUVmax = 5.4, previously 4.5), grossly unchanged. There is either a hypermetabolic right thyroid nodule or adjacent hypermetabolic lymph node (Se 2 Im 72) with maximum SUV of 19.58, previously 11.3. There is physiologic uptake in the intracranial soft tissues. Chest: Left upper paratracheal lymphadenopathy, extending into the lower cervical station (Se 2 Im 88) measures approximately 5.3 x 4.0 cm with maximum SUV of 21.26, previously measured 3.2 x 2.4 cm; SUV was not reported previously. Dominant lesion in the left upper lobe (Se 2 Im 100) measures ~6.8 x 4.6 cm with maximum SUV of 14.14; the SUV was not reported previously. The lesion is centrally necrotic, as before. There is a similar degree of postobstructive atelectasis/pneumonia in the left upper lobe. Large mass lesion involving the left anterior chest wall, left subpectoral axilla, and left pectoralis minor (Se 2 Im 91) now measures 8.4 x 6.2 cm with maximum SUV of 18.18, previously 5.6 x 4.2 cm; SUV was not reported previously. Associated pathologic fracture of the left third rib redemonstrated. Adjacent left lateral (level 1) axillary lymph nodes have increased in size, and axis follows: ...a) posterior level 1 node (Se 2 Im 99) measures 2.1 x 1.8 cm with maximum SUV of 14, previously 2.0 x 1.4 cm; SUV was not reported previously. ...b) lateral level 1 node (Se 2 Im 95) measures 1.8 x 1.4 cm with maximum SUV of 16.97, previously 1.4 x 1.2 cm; the SUV was not reported previously. Extensive hypermetabolic right hilar lymphadenopathy is similar to before. New, small pericardial effusion has an associated hypermetabolic pericardial nodule (Se 2 Im 139) with maximum SUV of 11.9, highly suspicious for malignant etiology. Background mediastinal blood pool uptake has a maximum SUV of 3.16. Moderate pleural effusions redemonstrated, without associated hypermetabolism. Abdomen and Pelvis: Known right adrenal metastasis now measures roughly 9.8 x 6.0 cm, previously 8.7 x 5.5 cm; the lesion is largely necrotic but has persistent peripheral hypermetabolism (SUVmax = 16.43, not indexed previously.) Probable new intrahepatic metastasis within the right lobe (Se 2 Im 156) has a maximum SUV of 9.27. Background hepatic parenchymal uptake has a maximum SUV of 4.33. Extensive retrocrural and retroperitoneal lymphadenopathy is grossly stable. Maximum SUV is now 19.42, not indexed previously. There is physiologic excretion of radiotracer in the urine and bowel. Skeleton, Musculature, and Integument: Probable intramuscular metastases in the left latissimus dorsi (Se 2 Im 119), maximum SUV of 16.41, new. The known right femoral lesion now shows background FDG uptake, consistent with response to interval therapy. CONCLUSION: Findings indicate disease progression, with enlargement of the dominant left upper lobe lesion, left chest wall lesion, right adrenal lesion, and pathologic lymphadenopathy throughout the mediastinum, axillae, nicole, and retroperitoneum. A new hepatic metastasis is suspected. Index lesions provided above. Electronically signed on 04/15/2023 2:27:00 PM by Kamlesh Cai M.D.
== END 2023-04-11 17:04 | disposition home or self-care (01) ==
LOC: RAD 17:03
PROVIDERS: PCP Family Medicine; Visit Provider Internal Medicine Hematology & Oncology
DX: C34.12 Malignant neoplasm of upper lobe, left bronchus or lung (principal)
CPT/HCPCS: 78815; A9552

== ENCOUNTER 2023-04-15 09:15 | Outpatient (RCR) | payer BC, SELFPAY ==
[2023-02-04 12:14] LABS: Basophils Percent Auto 0.2 % (0.0-3.0); Eosinophils Percent Auto 1.5 % (0.0-7.0); Hematocrit 34.6 % (37.0-53.0); Hemoglobin* 10.7 gm/dL (13.5-17.5); Lymphocytes Percent Auto 4.7 % (20-44); Mean Corpuscular HGB Conc 31 gm/dL (32-36); Mean Corpuscular Hemoglobin 28 pg (26-34); Mean Corpuscular Volume 90 fL (80-100); Monocytes Percent Auto 6.1 % (0.0-11.0); Neutrophils Percent Auto 86.5 % (42.0-72.0); Platelet Count* 511 K/uL (140-440); RDW Coefficient of Variation % 15.6 % (11.5-15.5); Red Blood Count 3.84 m/uL (4.30-5.90); White Blood Count* 12.46 K/uL (4.50-11.00)
[2023-02-04 12:20] LABS: Slide Review Reflex No
[2023-02-04 12:24] LABS: Chloride* 93 mmol/L (96-114); Sodium* 132 mmol/L (135-149)
[2023-02-04 12:26] LABS: Creatinine* 1.9 mg/dL (0.5-1.5); Estimated Glomerular Filt Rate 41 ml/min
[2023-02-04 12:27] LABS: Alanine Aminotransferase* 12 U/L (4-50); Alkaline Phosphatase* 88 U/L (40-150); Anion Gap 15 mEq/L (7-15); Aspartate Amino Transferase* 30 U/L (12-35); Bilirubin Total* 0.3 mg/dL (0.1-1.5); Blood Urea Nitrogen* 33 mg/dL (7-30); Carbon Dioxide* 24 mmol/L (20-32); Glucose* 130 mg/dL (60-115); Total Protein* 7.5 g/dL (6.0-8.3)
[2023-02-04 12:40] LABS: Calcium* 13.5 mg/dL (8.4-10.6)
[2023-02-04] MEDS: 0.9 % SODIUM CHLORIDE 1000 ml 1,000 ML IV (15:08)
[2023-02-05 14:22] VITALS: BP 128/74; PULSE 79; RESP 16; TEMP 35.6; O2SAT 99
[2023-02-05] MEDS: 0.9 % SODIUM CHLORIDE 1000 ml 1,000 ML IV (14:26)
[2023-02-06 14:27] VITALS: BP 131/86; PULSE 74; RESP 18; TEMP 36.7; O2SAT 97
[2023-02-06 14:38] LABS: Ionized Calcium* 1.71 mmol/L (1.11-1.30)
[2023-02-06] MEDS: 0.9 % SODIUM CHLORIDE 1000 ml 1,000 ML IV (14:39)
[2023-02-06 15:08] LABS: Calcium* 12.6 mg/dL (8.4-10.6)
--- NOTE | 2023-02-06 15:51 | ONC.NURNOTE ---
Lab called with critical Calcium 12.6. Notified Dr. Norris, received orderst to give 1 Liter NS IV over 1 hr on 02/07/23, and 02/08/23. Orders also received to recheck ionized calcium on 02/08/23 after fluids and on Saturday02/11/23. Pt verbalized understanding of plan of care.
[2023-02-07 14:14] VITALS: BP 127/83; PULSE 79; RESP 16; TEMP 35.7; O2SAT 98
[2023-02-08] MEDS: 0.9 % SODIUM CHLORIDE 1000 ml 1,000 ML IV (13:35)
[2023-02-08 13:42] VITALS: BP 112/74; PULSE 77; RESP 16; TEMP 35.8; O2SAT 97
[2023-02-08] MEDS: SODIUM CHLORIDE 0.9 % (FLUSH) 10 ML SYRINGE IVF (14:49)
[2023-02-08 14:59] LABS: Ionized Calcium* 1.61 mmol/L (1.11-1.30)
--- NOTE | 2023-02-11 05:40 | URNOTE ---
Request received for authorization forHuang ([id number]). Prior authorization is not required, pt carries [employer], per [employer] PA is not req. Ref#[id number] date range: to 02/12/24.
[2023-02-11 10:12] VITALS: BP 117/77; PULSE 92; RESP 18; TEMP 36.7; O2SAT 94
[2023-02-11 10:45] LABS: Ionized Calcium* 1.73 mmol/L (1.11-1.30)
[2023-02-11] MEDS: dexAMETHasone 10 MG in 0.9 % SODIUM CHLORIDE 100 ml 100 ML 404 MG IVPB (12:35)
[2023-02-11] MEDS: ONDANSETRON 2 MG/ML inj 8 MG IVP (12:35)
[2023-02-11] MEDS: ZOLEDRONIC ACID 4 MG in 0.9 % SODIUM CHLORIDE 100 ml 100 ML 420 MG IVPB (14:22)
[2023-02-11] MEDS: 0.9 % SODIUM CHLORIDE 1000 ml 1,000 ML IV (14:45)
[2023-02-11] MEDS: SODIUM CHLORIDE 0.9 % (FLUSH) 10 ML SYRINGE IVF (15:14)
--- NOTE | 2023-02-11 17:05 | ONC.NURNOTE ---
elevated calcium level. 1L NS given after treatment. Per Annika Wallace APRN. pt very difficult IV start. enc port. Pt returning this week for Ca recheck
--- NOTE | 2023-02-12 15:38 | ONC.NURNOTE ---
Pt called today stating he feels well after receiving Taxotere yesterday. Denies nausea. Pt taking Prochlorperazine as scheduled for 2-3 days. Pt to return on 02/14/23 for Calcium recheck.
--- NOTE | 2023-02-13 11:09 | ONC.NURNOTE ---
Addendum entered by Sharmila Chamberlain RN 02/14/23 14:54: asked bid writer about Fentanyl patches again and explained to patient and they were given to keep a more constant pain relief. Currently he states his Oxycodone last 4-6 hours then wears off so explained the patch keeps constant relief and then he can use his Oxycodone as a occasional breakthrough. Patient concerned he will get confused so instructed him to try it on a Saturday and could always remove it Saturday. Patient plans on trying this tomorrow am Original Note: Patient was prescribed MS contin by Dr. Norris, more information needs to be sent to [facility] per patient. Sr. Director Product Management heard this from [facility] nurse. MEDICAL COLLECTIONS REPRESENTATIVE looked at by bid writer and it was noted that patient has been getting his narcotics through PCP. Patient called to discuss this and he notes that he would like to continue to have this filled by oncology. Fentanyl patches filled 01/21 (Myrna) Oxycodone filled 01/24 (Jonah) Percocet filled 02/04 (Myrna) Patient informed nursing that he is taking 1-3 oxycodone daily and is aware that percocet also contains oxycodone and not to double up on this. Patient also notes that he filled his fentanyl patches, but does not plan to use these at this time. Patient was told that nursing will put continuing with filling MS contin on hold at this time. He is to keep track of what he is taking over the next couple of days for pain and the relief that experiences. Will discuss with Myrna on Saturday about dosing of MSContin and need for filling this. Dr. Mckenzie's office was notified that Dr. Norris will take over prescribing narcotics at this time.
[2023-02-14 14:36] LABS: Calcium* 10.1 mg/dL (8.4-10.6)
[2023-03-01 08:02] VITALS: BP 137/85; PULSE 84
[2023-03-01 08:06] VITALS: BP 125/87; PULSE 82; RESP 16; TEMP 36; O2SAT 98
[2023-03-01] MEDS: 0.9 % SODIUM CHLORIDE 1000 ml 1,000 ML IV (08:26)
[2023-03-01] MEDS: SODIUM CHLORIDE 0.9 % (FLUSH) 10 ML SYRINGE IVF (08:27)
[2023-03-01] MEDS: dexAMETHasone 20 MG in 0.9 % SODIUM CHLORIDE 100 ml 100 ML 408 MG IVPB (09:00)
[2023-03-01 09:43] LABS: Chloride* 98 mmol/L (96-114)
[2023-03-01 09:44] LABS: Potassium* 4.7 mmol/L (3.6-5.1); Sodium* 130 mmol/L (135-149)
[2023-03-01 09:46] LABS: Creatinine* 1.7 mg/dL (0.5-1.5); Estimated Glomerular Filt Rate 47 ml/min
[2023-03-01 09:47] LABS: Anion Gap 8 mEq/L (7-15); Blood Urea Nitrogen* 25 mg/dL (7-30); Calcium* 8.9 mg/dL (8.4-10.6); Carbon Dioxide* 24 mmol/L (20-32); Glucose* 125 mg/dL (60-115); Magnesium* 2.5 mg/dL (1.5-2.6)
[2023-03-01] MEDS: ONDANSETRON 2 MG/ML inj 8 MG IVP (10:03)
--- NOTE | 2023-03-01 14:03 | ONC.NURNOTE ---
patients color looks good today. no dizziness when standing. states no appetite. enc fluid intake. was seen in ed . NA 131. Mag 2.8. labs today NA 130. Mag 2.5. states increased his sodium to 2 a day. Per Jodi. Rodrigo khan change continue sodium 2 a day. drink enough fluids. recheck on saturday. pt called message left.
[2023-03-04 10:41] VITALS: BP 111/70; PULSE 85; RESP 16; TEMP 36.1; O2SAT 94
[2023-03-04 12:04] LABS: Eosinophils Percent Auto 0.3 % (0.0-7.0); Hematocrit 28.4 % (37.0-53.0); Hemoglobin* 8.7 gm/dL (13.5-17.5); Immature Granulocytes Pct Auto 0.3 %; Lymphocytes Percent Auto 3.7 % (20-44); Mean Corpuscular HGB Conc 31 gm/dL (32-36); Mean Corpuscular Hemoglobin 28 pg (26-34); Mean Corpuscular Volume 92 fL (80-100); Monocytes Percent Auto 11.1 % (0.0-11.0); Neutrophils Percent Auto 84.6 % (42.0-72.0); Platelet Count* 472 K/uL (140-440); RDW Coefficient of Variation % 15.7 % (11.5-15.5); Red Blood Count 3.08 m/uL (4.30-5.90); White Blood Count* 11.86 K/uL (4.50-11.00)
[2023-03-04 12:13] LABS: Slide Review Reflex No
[2023-03-04 12:19] LABS: Albumin* 3.7 g/dL (3.3-5.0); Chloride* 99 mmol/L (96-114)
[2023-03-04 12:20] LABS: Potassium* 5.6 mmol/L (3.6-5.1); Sodium* 131 mmol/L (135-149)
[2023-03-04 12:22] LABS: Anion Gap 6 mEq/L (7-15); Aspartate Amino Transferase* 15 U/L (12-35); Bilirubin Total* 0.1 mg/dL (0.1-1.5); Carbon Dioxide* 26 mmol/L (20-32); Creatinine* 1.5 mg/dL (0.5-1.5); Estimated Glomerular Filt Rate 55 ml/min; Total Protein* 6.5 g/dL (6.0-8.3)
[2023-03-04 12:23] LABS: Alanine Aminotransferase* 10 U/L (4-50); Alkaline Phosphatase* 92 U/L (40-150); Blood Urea Nitrogen* 35 mg/dL (7-30); Calcium* 8.5 mg/dL (8.4-10.6); Glucose* 107 mg/dL (60-115)
[2023-03-04] MEDS: ONDANSETRON ODT 4 MG TAB 8 MG PO (13:44)
[2023-03-04] MEDS: dexAMETHasone 4 MG TABLET 20 MG PO (13:44)
[2023-03-05 13:39] LABS: Basophils Percent Auto 0.1 % (0.0-3.0); Hematocrit 30.5 % (37.0-53.0); Hemoglobin* 9.4 gm/dL (13.5-17.5); Immature Granulocytes Pct Auto 0.6 %; Lymphocytes Percent Auto 2.1 % (20-44); Mean Corpuscular HGB Conc 31 gm/dL (32-36); Mean Corpuscular Hemoglobin 28 pg (26-34); Mean Corpuscular Volume 90 fL (80-100); Monocytes Percent Auto 3.6 % (0.0-11.0); Neutrophils Percent Auto 93.6 % (42.0-72.0); Platelet Count* 575 K/uL (140-440); RDW Coefficient of Variation % 15.5 % (11.5-15.5); Red Blood Count 3.38 m/uL (4.30-5.90); White Blood Count* 12.05 K/uL (4.50-11.00)
[2023-03-05 13:41] LABS: Slide Review Reflex No
[2023-03-05 13:58] LABS: Chloride* 100 mmol/L (96-114); Potassium* 5.3 mmol/L (3.6-5.1); Sodium* 133 mmol/L (135-149)
[2023-03-05 14:01] LABS: Alanine Aminotransferase* 20 U/L (4-50); Alkaline Phosphatase* 110 U/L (40-150); Anion Gap 10 mEq/L (7-15); Aspartate Amino Transferase* 19 U/L (12-35); Blood Urea Nitrogen* 28 mg/dL (7-30); Carbon Dioxide* 23 mmol/L (20-32); Creatinine* 1.2 mg/dL (0.5-1.5); Estimated Glomerular Filt Rate 72 ml/min; Glucose* 152 mg/dL (60-115); Total Protein* 7.1 g/dL (6.0-8.3)
[2023-03-05 14:04] LABS: Bilirubin Total* < 0.1 mg/dL (0.1-1.5)
--- NOTE | 2023-03-05 14:07 | ONC.NURNOTE ---
Patient here for a recheck of his labs. He discussed port placement with NANOTECHNOLOGIST, and discussed the possibility of daily dexamethasone with narrative writer. Labs were printed to review with Dr. Norris tomorrow to determine if able to treat with chemotherapy, and will ask about dexamethasone at that time as well.
[2023-03-06 13:28] VITALS: BP 125/79; PULSE 74; RESP 16; TEMP 36.4; O2SAT 97
[2023-03-06] MEDS: ONDANSETRON 2 MG/ML inj 8 MG IVP (13:59)
[2023-03-06] MEDS: dexAMETHasone 10 MG in 0.9 % SODIUM CHLORIDE 100 ml 100 ML 404 MG IVPB (13:59)
[2023-03-06] MEDS: SODIUM CHLORIDE 0.9 % (FLUSH) 10 ML SYRINGE IVF (16:15)
--- NOTE | 2023-03-06 16:15 | ONC.NURNOTE ---
Pt complains of stomach pain (epigastric/RUQ); he is taking Reglan/Compazine/Zofran on schedule, alternating. He notes the pain happens more in the morning and eases throughout the day. Pt recently began oral steroids. Reviewed possibility of gastric irritation; pt denies heartburn/reflux but notes dyspepsia/sour stomach. Reviewed with and gave pt handout on GERD from [facility], as gastritis recommendations overlap. Recommended pt try OTC antacids like Tums as needed plus daily use of famotidine and/or a PPI. Pt does not currently take these but says the family has some in the house. Also reviewed avoiding/minimizing foods like citrus, fried foods, mint, chocolate, etc. Pt to call if concerns. IV left in for IVF Saturday.
--- NOTE | 2023-03-07 12:30 | ONC.NURNOTE ---
Patient called office asking to talk with play writer about his dexamethasone prescription. Looking at order from Dr. Norris, patient was instructed to take 4mg twice daily. He states that he has some old medication, that is not that he would like to use. Clarified that it is the same drug and dose, and therefore safe to be used. While talking on the phone, he states that he is unsure about some of the other medications that he is taking and why. He was told to start prilosec yesterday, talked about possible reasons for this and to take first thing in the AM. Dexamethsone should be taken with food, especially noting his upset stomach at times. Further talked about pain medications, and he notes that he continues to take 3-4 oxycodone while using the fentanyl. He notes that he has 4 patches left and is aware of need to change them every 72 hours. With his multiple medications, he was asked to bring in all medications and pain log to discuss with INTERMEDIATE CARD TENDER tomorrow while in office. He was scheduled with Dr. Norris in three weeks, along with chemotherapy. No further IVF orders were placed by oncologist, so will need orders for fluids if not overloaded tomorrow.
[2023-03-08 13:46] LABS: Chloride* 99 mmol/L (96-114); Potassium* 5.3 mmol/L (3.6-5.1); Sodium* 131 mmol/L (135-149)
[2023-03-08 13:49] LABS: Anion Gap 7 mEq/L (7-15); Blood Urea Nitrogen* 29 mg/dL (7-30); Carbon Dioxide* 25 mmol/L (20-32); Creatinine* 0.8 mg/dL (0.5-1.5); Estimated Glomerular Filt Rate 105 ml/min
[2023-03-08 13:50] LABS: Calcium* 8.9 mg/dL (8.4-10.6); Glucose* 152 mg/dL (60-115)
[2023-03-11 09:56] LABS: Basophils Percent Auto 0.1 % (0.0-3.0); Eosinophils Percent Auto 0.4 % (0.0-7.0); Hemoglobin* 9.9 gm/dL (13.5-17.5); Immature Granulocytes Pct Auto 0.5 %; Lymphocytes Percent Auto 2.5 % (20-44); Mean Corpuscular HGB Conc 31 gm/dL (32-36); Mean Corpuscular Hemoglobin 28 pg (26-34); Mean Corpuscular Volume 92 fL (80-100); Monocytes Percent Auto 4.5 % (0.0-11.0); Platelet Count* 335 K/uL (140-440); Red Blood Count 3.49 m/uL (4.30-5.90); White Blood Count* 12.57 K/uL (4.50-11.00)
[2023-03-11 10:02] LABS: Slide Review Reflex No
[2023-03-11 10:07] LABS: Chloride* 95 mmol/L (96-114)
[2023-03-11 10:08] LABS: Potassium* 4.7 mmol/L (3.6-5.1); Sodium* 130 mmol/L (135-149)
[2023-03-11 10:10] LABS: Creatinine* 1.2 mg/dL (0.5-1.5); Estimated Glomerular Filt Rate 72 ml/min
[2023-03-11 10:11] LABS: Anion Gap 8 mEq/L (7-15); Blood Urea Nitrogen* 35 mg/dL (7-30); Calcium* 8.1 mg/dL (8.4-10.6); Carbon Dioxide* 27 mmol/L (20-32); Glucose* 124 mg/dL (60-115)
[2023-03-11 10:34] VITALS: BP 124/82; PULSE 94; RESP 16; O2SAT 94
[2023-03-11] MEDS: dexAMETHasone 4 MG TABLET PO (11:30)
--- NOTE | 2023-03-11 12:19 | PC.NURSE ---
Pt present at [facility] for labs, assessment, and possible IVF. See JW note for details. No fluids given.
[2023-03-11 12:29] LABS: Appearance Urine Clear (Clear); Bilirubin Urine Negative (Negative); Blood Urine Negative (Negative); Color Urine Yellow (Yellow); Glucose Urine Negative (Negative); Ketones Urine Negative (Negative); Leukocyte Esterase Urine Negative (Negative); Nitrite Urine Negative (Negative); Protein Urine 2+ (Negative); Specific Gravity Urine 1.015 (1.000-1.030); Urobilinogen Urine 0.2 (0.2-1.0); pH Urine 6.5 (5.0-8.5)
[2023-03-11 13:40] LABS: Amorphous Sediment Urine Few; Bacteria Urine Few; RBC Urine 0-2 (0-2); Squamous Epithelial Cell Urine Few (None-Few); WBC Urine 0-2 (0-5)
--- NOTE | 2023-03-13 12:46 | ONC.NURNOTE ---
Received phone call from [facility] asking for a referral to Palliative care as patient is trying to make an appointment. Discussed with Dr. epperson and she is unable to get into [facility]. Nursing to see if Deanna is able to do this tomorrow, otherwise will be done on Saturday when she is back in office. Institutional Asset Manager notified patient, will contact him once the referral is placed.
--- NOTE | 2023-03-14 16:00 | ONC.NURNOTE ---
Consult for Palliative care placed by Haroldo Day to [place]
[2023-03-15 13:56] VITALS: BP 122/74; PULSE 63; RESP 18; TEMP 36.6; O2SAT 95
[2023-03-15 14:02] LABS: Basophils Percent Auto 0.1 % (0.0-3.0); Hematocrit 28.8 % (37.0-53.0); Hemoglobin* 8.9 gm/dL (13.5-17.5); Immature Granulocytes Pct Auto 1.1 %; Lymphocytes Percent Auto 1.8 % (20-44); Mean Corpuscular HGB Conc 31 gm/dL (32-36); Mean Corpuscular Hemoglobin 28 pg (26-34); Mean Corpuscular Volume 92 fL (80-100); Monocytes Percent Auto 7.1 % (0.0-11.0); Neutrophils Percent Auto 89.9 % (42.0-72.0); Platelet Count* 443 K/uL (140-440); RDW Coefficient of Variation % 16.1 % (11.5-15.5); Red Blood Count 3.13 m/uL (4.30-5.90); White Blood Count* 13.29 K/uL (4.50-11.00)
[2023-03-15 14:07] LABS: Slide Review Reflex No
[2023-03-15 14:11] LABS: Chloride* 99 mmol/L (96-114)
[2023-03-15 14:12] LABS: Potassium* 5.2 mmol/L (3.6-5.1); Sodium* 131 mmol/L (135-149)
[2023-03-15 14:14] LABS: Creatinine* 1.1 mg/dL (0.5-1.5); Estimated Glomerular Filt Rate 80 ml/min
[2023-03-15 14:15] LABS: Anion Gap 8 mEq/L (7-15); Blood Urea Nitrogen* 39 mg/dL (7-30); Calcium* 8.3 mg/dL (8.4-10.6); Carbon Dioxide* 24 mmol/L (20-32); Glucose* 180 mg/dL (60-115)
[2023-03-15] MEDS: HEPARIN 500 UNIT/5 ML SYRINGE IVF (14:57)
[2023-03-15] MEDS: SODIUM CHLORIDE 0.9 % (FLUSH) 10 ML SYRINGE IVF (14:57)
[2023-03-26] MEDS: SODIUM CHLORIDE 0.9 % (FLUSH) 10 ML SYRINGE IVF (14:06)
[2023-03-26 14:15] LABS: Basophils Percent Auto 0.1 % (0.0-3.0); Eosinophils Percent Auto 0.2 % (0.0-7.0); Hematocrit 31.8 % (37.0-53.0); Immature Granulocytes Pct Auto 0.5 %; Mean Corpuscular HGB Conc 31 gm/dL (32-36); Mean Corpuscular Hemoglobin 29 pg (26-34); Mean Corpuscular Volume 92 fL (80-100); Monocytes Percent Auto 9.8 % (0.0-11.0); Neutrophils Percent Auto 86.4 % (42.0-72.0); Platelet Count* 299 K/uL (140-440); RDW Coefficient of Variation % 16.5 % (11.5-15.5); Red Blood Count 3.45 m/uL (4.30-5.90); White Blood Count* 12.49 K/uL (4.50-11.00)
[2023-03-26 14:16] LABS: Slide Review Reflex No
[2023-03-26 14:20] LABS: Albumin* 3.5 g/dL (3.3-5.0); Chloride* 95 mmol/L (96-114); Sodium* 127 mmol/L (135-149)
[2023-03-26 14:23] LABS: Alanine Aminotransferase* 37 U/L (4-50); Alkaline Phosphatase* 90 U/L (40-150); Anion Gap 6 mEq/L (7-15); Aspartate Amino Transferase* 23 U/L (12-35); Bilirubin Total* 0.5 mg/dL (0.1-1.5); Blood Urea Nitrogen* 26 mg/dL (7-30); Carbon Dioxide* 26 mmol/L (20-32); Creatinine* 1.1 mg/dL (0.5-1.5); Estimated Glomerular Filt Rate 80 ml/min; Total Protein* 6.3 g/dL (6.0-8.3)
[2023-03-26 14:24] LABS: Calcium* 9.5 mg/dL (8.4-10.6); Glucose* 137 mg/dL (60-115)
[2023-04-04 08:15] LABS: Eosinophils Percent Auto 0.5 % (0.0-7.0); Hematocrit 35.4 % (37.0-53.0); Hemoglobin* 11.1 gm/dL (13.5-17.5); Immature Granulocytes Pct Auto 2.4 %; Lymphocytes Percent Auto 4.9 % (20-44); Mean Corpuscular HGB Conc 31 gm/dL (32-36); Mean Corpuscular Hemoglobin 29 pg (26-34); Mean Corpuscular Volume 93 fL (80-100); Monocytes Percent Auto 4.6 % (0.0-11.0); Neutrophils Percent Auto 87.6 % (42.0-72.0); Platelet Count* 367 K/uL (140-440); RDW Coefficient of Variation % 16.3 % (11.5-15.5); Red Blood Count 3.82 m/uL (4.30-5.90); White Blood Count* 13.15 K/uL (4.50-11.00)
[2023-04-04 08:23] LABS: Slide Review Reflex No
[2023-04-04 08:25] LABS: Chloride* 98 mmol/L (96-114); Sodium* 132 mmol/L (135-149)
[2023-04-04 08:28] LABS: Anion Gap 7 mEq/L (7-15); Carbon Dioxide* 27 mmol/L (20-32); Creatinine* 0.9 mg/dL (0.5-1.5); Estimated Glomerular Filt Rate 101 ml/min
[2023-04-04 08:29] LABS: Blood Urea Nitrogen* 26 mg/dL (7-30); Calcium* 10.1 mg/dL (8.4-10.6); Glucose* 133 mg/dL (60-115)
--- NOTE | 2023-04-04 09:47 | ONC.NURNOTE ---
Pt here for labs. Pt doing well, ambulated into clinic. Labs reviewed by Annika Holland APRN. Pt stated he decreased his dexamethasone to 2 mg PO starting yesterday d/t not being able to sleep well. Delinquency Prevention Social Worker informed Annika De La Cruz APRN of this. Called pt with lab results and informed him Annika De La Cruz APRN is aware dex dose was decreased.
[2023-04-15 08:20] LABS: Basophils Percent Auto 0.1 % (0.0-3.0); Eosinophils Percent Auto 0.3 % (0.0-7.0); Hematocrit 32.2 % (37.0-53.0); Hemoglobin* 10.1 gm/dL (13.5-17.5); Immature Granulocytes Pct Auto 0.4 %; Lymphocytes Percent Auto 1.9 % (20-44); Mean Corpuscular HGB Conc 31 gm/dL (32-36); Mean Corpuscular Hemoglobin 29 pg (26-34); Mean Corpuscular Volume 92 fL (80-100); Monocytes Percent Auto 6.9 % (0.0-11.0); Neutrophils Percent Auto 90.4 % (42.0-72.0); Platelet Count* 295 K/uL (140-440); RDW Coefficient of Variation % 16.1 % (11.5-15.5); Red Blood Count 3.51 m/uL (4.30-5.90)
[2023-04-15 08:26] LABS: Slide Review Reflex No
[2023-04-15 08:35] LABS: Albumin* 3.7 g/dL (3.3-5.0); Chloride* 98 mmol/L (96-114); Potassium* 5.6 mmol/L (3.6-5.1); Sodium* 130 mmol/L (135-149)
[2023-04-15 08:37] LABS: Creatinine* 1.7 mg/dL (0.5-1.5); Estimated Glomerular Filt Rate 47 ml/min
[2023-04-15 08:38] LABS: Alanine Aminotransferase* 42 U/L (4-50); Alkaline Phosphatase* 117 U/L (40-150); Anion Gap 6 mEq/L (7-15); Aspartate Amino Transferase* 28 U/L (12-35); Bilirubin Total* 0.4 mg/dL (0.1-1.5); Blood Urea Nitrogen* 46 mg/dL (7-30); Calcium* 11.6 mg/dL (8.4-10.6); Carbon Dioxide* 26 mmol/L (20-32); Glucose* 162 mg/dL (60-115); Total Protein* 6.7 g/dL (6.0-8.3)
[2023-04-15] MEDS: 0.9 % SODIUM CHLORIDE 500 ML 500 ML IV (09:30)
[2023-04-15] MEDS: SODIUM CHLORIDE 0.9 % (FLUSH) 10 ML SYRINGE IVF ×2 (09:35→10:37)
[2023-04-15] MEDS: HEPARIN 500 UNIT/5 ML SYRINGE IVF (10:37)
== END 2023-04-22 23:59 | disposition home or self-care (01) ==
LOC: CCIC 09:15
PROVIDERS: Clinical Nurse Specialist; PCP Family Medicine; Referring Provider Family Medicine; Visit Provider Internal Medicine Hematology & Oncology
DX: C34.92 Malignant neoplasm of unspecified part of left bronchus or lung (principal); C79.51 Secondary malignant neoplasm of bone; R06.02 Shortness of breath
CPT/HCPCS: 36415; 36591; 36592; 80048; 80053; 81003; 81015; 82310; 82330; 83735; 85025; 87040; 87086; 96360; 96361; 96376; 96401; 96413; 99211; 99212; 99213; 99214; 99215; G0463; A9270; J1100; J1642; J2405; J3489; J7030; J9171